=== PATIENT | male | born 1965 | race Caucasian/White ===

== ENCOUNTER 2017-04-29 14:15 | Emergency (ER) | payer MEDICAID ==
[~2017-04-29] VITALS: Ht 165.1 cm; Wt 74.0 kg
[~2017-04-29 14:15] MED LIST: INSULIN SUBCUT
[2017-04-29] MEDS ORDERED: ACETAMINOPHEN 325MG TABLET PO STA (19:16)
[2017-04-29] MEDS ORDERED: SODIUM CHLORIDE 0.9% 1000ML BAG (SEPSIS BOLUS) IV ONE (19:30)
[2017-04-29 19:38] LABS: BASOPHILS % 0.7 % (0.0-2.0); EOSINOPHILS % 1.2 % (0.0-5.0); HEMATOCRIT. 32.1 % (42.0-52.0); HEMOGLOBIN. 10.6 g/dL (14.0-18.0); LYMPHOCYTES % 20.1 % (20.0-50.0); MEAN CORPUSCULAR HEMOGLOBIN 26.2 pg (28.0-32.0); MEAN PLATELET VOLUME 7.1 fl (7.4-10.4); MONOCYTES % 9.2 % (2.0-8.0); NEUTROPHILS % 68.8 % (40.0-76.0); PLATELET 294 x1000/uL (130-400); RED BLOOD CELL COUNT 4.06 mill/uL (4.7-6.1)
[2017-04-29 19:42] LABS: CHLORIDE 109 mEq/L (98-107)
[2017-04-29 19:50] LABS: CARBON DIOXIDE 24 mEq/L (21-32)
[2017-04-29 20:49] LABS: CLARITY URINE CLEAR (CLEAR); COLOR URINE YELLOW (YELLOW); GLUCOSE URINE 1+ (NEGATIVE); KETONES URINE NEGATIVE (NEGATIVE); LEUKOCYTE ESTERASE URINE NEGATIVE (NEGATIVE); NITRITE URINE NEGATIVE (NEGATIVE); OCCULT BLOOD URINE 2+ (NEGATIVE); PH URINE 5.5 (4.5-8.0); PROTEIN URINE 4+ (NEGATIVE); SPECIFIC GRAVITY URINE 1.024 (1.005-1.030); UROBILINOGEN URINE 0.2 E.U./dL (0.2-1.0)
[2017-04-29 23:48] VITALS: BP 137/72
== END 2017-04-29 23:50 | disposition home or self-care (01) ==
LOC: ER 19:56
DX: J20.9 Acute bronchitis, unspecified (principal); N28.9 Disorder of kidney and ureter, unspecified; E11.9 Type 2 diabetes mellitus without complications; Z79.4 Long term (current) use of insulin
CPT/HCPCS: 36415; 71010; 80053; 81001; 82962; 83605; 85025; 87040; 87086; 87804; 93005; 96360; 99285; J7030; Z7610

== ENCOUNTER 2017-05-21 04:10 | Inpatient (IN) | payer MEDICAID ==
[~2017-05-21] VITALS: Ht 165.1 cm; Wt 74.4 kg
[2017-05-21] MEDS ORDERED: ACETAMINOPHEN 325MG TABLET PO STA (05:17)
[2017-05-21] MEDS ORDERED: ONDANSETRON HCL 4MG/2ML VIAL IV STA (05:17)
[2017-05-21] MEDS ORDERED: METHYLPREDNISOLONE SOD SUCC 125 MG/2 ML VIAL IV STA (05:20)
[2017-05-21] MEDS ORDERED: SODIUM CHLORIDE 0.9% 500 ML IV ONE (05:20)
[2017-05-21] MEDS ORDERED: IPRATROPIUM/ALBUTEROL 0.5-3(2.5)MG/3ML NEB HHN ONE (05:30)
[2017-05-21] MEDS ORDERED: PIPERACILLIN/TAZ 3.375G PREMIX 50 ML IV ONE (05:30)
[2017-05-21] MEDS ORDERED: VANCOMYCIN 1 G PREMIX 200 ML IV ONE (05:30)
[2017-05-21 06:04] LABS: BASOPHILS % 0.5 % (0.0-2.0); EOSINOPHILS % 1.3 % (0.0-5.0); HEMOGLOBIN. 9.7 g/dL (14.0-18.0); LYMPHOCYTES % 7.9 % (20.0-50.0); MEAN CORPUSCULAR HEMOGLOBIN 26.4 pg (28.0-32.0); MEAN CORPUSCULAR VOLUME 79.3 fL (80.0-94.0); MEAN PLATELET VOLUME 7.5 fl (7.4-10.4); MONOCYTES % 5.9 % (2.0-8.0); NEUTROPHILS % 84.4 % (40.0-76.0); PLATELET 325 x1000/uL (130-400); RED BLOOD CELL COUNT 3.66 mill/uL (4.7-6.1); RED CELL DISTRIBUTION WIDTH 13.4 % (11.6-14.6)
[2017-05-21 06:08] LABS: INR 1.1; PROTHROMBIN TIME 11.3 sec (9.4-11.6)
[2017-05-21 06:18] LABS: CARBON DIOXIDE 26 mEq/L (21-32); CHLORIDE 109 mEq/L (98-107); ETHANOL BLOOD < 10 mg/dL; TROPONIN I 0.06 ng/mL (0.00-0.04)
[2017-05-21] MEDS ORDERED: MAGNESIUM/ALUMINUM HYDROXIDE/SIMETHICONE 30ML UDC PO PRN (07:00)
[2017-05-21] MEDS ORDERED: DOCUSATE SODIUM 100MG CAPSULE PO PRN (07:00)
[2017-05-21] MEDS ORDERED: TRAMADOL 50MG TABLET PO PRN (07:00)
[2017-05-21] MEDS ORDERED: CLONIDINE 0.1MG TABLET PO PRN (07:00)
[2017-05-21] MEDS ORDERED: NA PHOS,M-B/NA PHOS,DI-BA ENEMA 118ML PR PRN (07:00)
[2017-05-21] MEDS ORDERED: DEXTROSE 50% WATER 50ML SYRINGE IV PRN (07:00)
[2017-05-21] MEDS ORDERED: IPRATROPIUM/ALBUTEROL 0.5-3(2.5)MG/3ML NEB INH PRN (07:00)
[2017-05-21] MEDS ORDERED: ENOXAPARIN 40MG/0.4ML SYR SUBCUT SCH (07:00)
[2017-05-21] MEDS: BLOOD SUGAR DIAGNOSTIC STRIP TEST SCH ×4 (09:00→21:43)
[2017-05-21] MEDS ORDERED: OSELTAMIVIR 75MG CAPSULE PO SCH (09:00)
[2017-05-21] MEDS ORDERED: ENOXAPARIN 30MG/0.3ML SYR SUBCUT SCH (09:47)
[2017-05-21] MEDS: FUROSEMIDE 40MG/4ML VIAL IVP SCH ×2 (09:53→21:03)
[2017-05-21] MEDS: ASPIRIN 325MG EC TABLET PO SCH (09:54)
[2017-05-21] MEDS: METOPROLOL TARTRATE 25MG TABLET PO SCH ×2 (09:55→21:03)
[2017-05-21] MEDS: FAMOTIDINE 20MG/2ML VIAL IV SCH (10:05)
[2017-05-21] MEDS: INSULIN LISPRO 100 UNITS/ML SUBCUT SCH ×4 (10:12→22:40)
[2017-05-21 10:19] VITALS: BP 124/58
[2017-05-21 10:30] VITALS: BP 124/58
[2017-05-21] MEDS: ACETAMINOPHEN 325MG TABLET PO PRN ×2 (10:35→21:04)
[2017-05-21 12:00] VITALS: BP 125/65
[2017-05-21] MEDS: CEFTRIAXONE 1 G PREMIX 50 ML IV SCH (12:00)
[2017-05-21] MEDS: OSELTAMIVIR PHOSPHATE 6 MG/1 ML PO SCH ×2 (12:00→21:03)
[2017-05-21] MEDS: AZITHROMYCIN 500 MG in DEXT 5% WATER 250 ML IV SCH (12:57)
[2017-05-21] MEDS: GUAIFENESIN 200MG/10ML SUGAR FREE UDC PO PRN (12:57)
[2017-05-21 14:54] LABS: CLARITY URINE CLEAR (CLEAR); COLOR URINE YELLOW (YELLOW); GLUCOSE URINE TRACE (NEGATIVE); KETONES URINE NEGATIVE (NEGATIVE); LEUKOCYTE ESTERASE URINE NEGATIVE (NEGATIVE); NITRITE URINE NEGATIVE (NEGATIVE); OCCULT BLOOD URINE 2+ (NEGATIVE); PH URINE 5.5 (4.5-8.0); PROTEIN URINE 4+ (NEGATIVE); SPECIFIC GRAVITY URINE 1.018 (1.005-1.030); UROBILINOGEN URINE 0.2 E.U./dL (0.2-1.0)
[2017-05-21 15:34] LABS: *AMPHETAMINES SCREEN URINE NEGATIVE (NEGATIVE); *BARBITURATES SCREEN URINE NEGATIVE (NEGATIVE); *BENZODIAZEPINES SCREEN URINE NEGATIVE (NEGATIVE); *COCAINE SCREEN URINE NEGATIVE (NEGATIVE); CANNABINOID URINE SCREEN NEGATIVE (NEGATIVE); METHADONE URINE SCREEN NEGATIVE (NEGATIVE); OPIATES URINE SCREEN NEGATIVE (NEGATIVE); PHENCYCLIDINE URINE SCREEN NEGATIVE (NEGATIVE)
[2017-05-21 16:00] VITALS: BP 132/78
[2017-05-21 16:49] LABS: CREATINE KINASE MB FRACTION 3.2 ng/mL (0.5-3.6)
[2017-05-21 16:52] LABS: TROPONIN I 0.42 ng/mL (0.00-0.04)
[2017-05-21 20:30] VITALS: BP 132/74
[2017-05-21] MEDS ORDERED: ZOLPIDEM TARTRATE 5MG TABLET PO PRN (21:00)
[2017-05-21 23:11] LABS: CREATINE KINASE MB FRACTION 3.7 ng/mL (0.5-3.6)
[2017-05-21 23:43] LABS: TROPONIN I 0.7 ng/mL (0.00-0.04)
[2017-05-21 23:50] VITALS: BP 115/59
[2017-05-22] MEDS: ACETAMINOPHEN 325MG TABLET PO PRN ×3 (01:24→16:11)
[2017-05-22 04:30] VITALS: BP 126/66
[2017-05-22] MEDS: INSULIN LISPRO 100 UNITS/ML SUBCUT SCH ×4 (06:32→22:07)
[2017-05-22] MEDS: BLOOD SUGAR DIAGNOSTIC STRIP TEST SCH ×4 (06:32→21:56)
[2017-05-22] MEDS: ONDANSETRON HCL 4MG/2ML VIAL IV PRN ×2 (06:57→16:09)
[2017-05-22] MEDS: ASPIRIN 325MG EC TABLET PO SCH (08:39)
[2017-05-22] MEDS: ENOXAPARIN 80MG/0.8ML SYR SUBCUT SCH (08:40)
[2017-05-22] MEDS: GUAIFENESIN 200MG/10ML SUGAR FREE UDC PO PRN (08:40)
[2017-05-22 08:45] LABS: HEMATOCRIT. 27.1 % (42.0-52.0); MEAN CORPUSCULAR HEMOGLOBIN 26.2 pg (28.0-32.0); MEAN CORPUSCULAR VOLUME 78.9 fL (80.0-94.0); MEAN PLATELET VOLUME 7.5 fl (7.4-10.4); PLATELET 280 x1000/uL (130-400); RED BLOOD CELL COUNT 3.44 mill/uL (4.7-6.1); RED CELL DISTRIBUTION WIDTH 13.6 % (11.6-14.6)
[2017-05-22] MEDS: METOPROLOL TARTRATE 25MG TABLET PO SCH ×3 (08:46→21:52)
[2017-05-22] MEDS: FAMOTIDINE 20MG/2ML VIAL IV SCH (08:47)
[2017-05-22] MEDS: FUROSEMIDE 40MG/4ML VIAL IVP SCH ×2 (08:47→21:50)
[2017-05-22 09:13] LABS: CARBON DIOXIDE 24 mEq/L (21-32); CHLORIDE 102 mEq/L (98-107)
[2017-05-22] MEDS: CEFTRIAXONE 1 G PREMIX 50 ML IV SCH (10:27)
[2017-05-22] MEDS: OSELTAMIVIR PHOSPHATE 6 MG/1 ML PO SCH ×2 (10:28→21:52)
[2017-05-22] MEDS: AZITHROMYCIN 500 MG in DEXT 5% WATER 250 ML IV SCH (11:41)
[2017-05-22 13:43] LABS: PLATELET ESTIMATE NORMAL
[2017-05-22 16:29] VITALS: BP 154/75
[2017-05-22] MEDS ORDERED: METOCLOPRAMIDE HCL 10MG/2ML VIAL IV PRN (17:15)
[2017-05-22 19:30] VITALS: BP 126/71
[2017-05-22 20:00] VITALS: BP 117/77
[2017-05-23] VITALS: BP 129/70
[2017-05-23] MEDS: ACETAMINOPHEN 325MG TABLET PO PRN ×4 (00:12→18:38)
[2017-05-23 04:15] VITALS: BP 139/88
[2017-05-23] MEDS: BLOOD SUGAR DIAGNOSTIC STRIP TEST SCH ×4 (06:44→21:10)
[2017-05-23 08:00] VITALS: BP 136/86
[2017-05-23] MEDS: INSULIN LISPRO 100 UNITS/ML SUBCUT SCH ×4 (08:31→21:14)
[2017-05-23] MEDS: ASPIRIN 325MG EC TABLET PO SCH (08:32)
[2017-05-23] MEDS: FUROSEMIDE 40MG/4ML VIAL IVP SCH (08:32)
[2017-05-23] MEDS: ENOXAPARIN 80MG/0.8ML SYR SUBCUT SCH (08:33)
[2017-05-23] MEDS: METOPROLOL TARTRATE 25MG TABLET PO SCH ×2 (08:33→21:10)
[2017-05-23] MEDS: OSELTAMIVIR PHOSPHATE 6 MG/1 ML PO SCH ×2 (09:00→21:09)
[2017-05-23] MEDS: FAMOTIDINE 20MG/2ML VIAL IV SCH (09:09)
[2017-05-23 12:14] VITALS: BP_SYST 105; BP_SYST 160; BP_DIAS 65; BP_DIAS 93
[2017-05-23] MEDS: CEFTRIAXONE 1 G PREMIX 50 ML IV SCH (12:17)
[2017-05-23 12:43] LABS: BASOPHILS % 0.7 % (0.0-2.0); HEMATOCRIT. 26.5 % (42.0-52.0); HEMOGLOBIN. 8.8 g/dL (14.0-18.0); LYMPHOCYTES % 12.5 % (20.0-50.0); MEAN CORPUSCULAR HEMOGLOBIN 26.6 pg (28.0-32.0); MEAN CORPUSCULAR VOLUME 79.9 fL (80.0-94.0); MEAN PLATELET VOLUME 8.2 fl (7.4-10.4); MONOCYTES % 4.1 % (2.0-8.0); NEUTROPHILS % 82.7 % (40.0-76.0); PLATELET 243 x1000/uL (130-400); RED BLOOD CELL COUNT 3.31 mill/uL (4.7-6.1); RED CELL DISTRIBUTION WIDTH 13.8 % (11.6-14.6)
[2017-05-23] MEDS: AZITHROMYCIN 500 MG in DEXT 5% WATER 250 ML IV SCH (13:22)
[2017-05-23 15:53] VITALS: BP 110/62
[2017-05-23] MEDS: SODIUM CHLORIDE 0.9% 1,000 ML IV SCH (18:15)
[2017-05-23 20:00] VITALS: BP 112/62
[2017-05-23] MEDS ORDERED: METOPROLOL TARTRATE 25MG TABLET PO SCH (21:00)
[2017-05-24] VITALS: BP 111/68
[2017-05-24 04:00] VITALS: BP 130/67
[2017-05-24] MEDS: SODIUM CHLORIDE 0.9% 1,000 ML IV SCH ×3 (04:07→22:08)
[2017-05-24 06:33] LABS: BASOPHILS % 0.5 % (0.0-2.0); EOSINOPHILS % 0.2 % (0.0-5.0); HEMATOCRIT. 27.4 % (42.0-52.0); HEMOGLOBIN. 9.2 g/dL (14.0-18.0); LYMPHOCYTES % 22.5 % (20.0-50.0); MEAN CORPUSCULAR HEMOGLOBIN 26.4 pg (28.0-32.0); MEAN CORPUSCULAR VOLUME 78.7 fL (80.0-94.0); MONOCYTES % 4.6 % (2.0-8.0); NEUTROPHILS % 72.2 % (40.0-76.0); PLATELET 255 x1000/uL (130-400); RED BLOOD CELL COUNT 3.48 mill/uL (4.7-6.1); RED CELL DISTRIBUTION WIDTH 13.9 % (11.6-14.6)
[2017-05-24] MEDS: INSULIN LISPRO 100 UNITS/ML SUBCUT SCH ×5 (06:41→22:08)
[2017-05-24] MEDS: BLOOD SUGAR DIAGNOSTIC STRIP TEST SCH ×4 (06:41→21:00)
[2017-05-24 08:00] VITALS: BP 136/71
[2017-05-24] MEDS: METOPROLOL TARTRATE 25MG TABLET PO SCH ×2 (10:09→22:08)
[2017-05-24] MEDS: ASPIRIN 325MG EC TABLET PO SCH (10:09)
[2017-05-24] MEDS: CEFTRIAXONE 1 G PREMIX 50 ML IV SCH (10:10)
[2017-05-24] MEDS: FAMOTIDINE 20MG/2ML VIAL IV SCH (10:10)
[2017-05-24] MEDS: OSELTAMIVIR PHOSPHATE 6 MG/1 ML PO SCH (10:11)
[2017-05-24] MEDS: ENOXAPARIN 30MG/0.3ML SYR SUBCUT SCH (10:12)
[2017-05-24 12:00] VITALS: BP 126/71
[2017-05-24] MEDS: AZITHROMYCIN 500 MG in DEXT 5% WATER 250 ML IV SCH (12:20)
[2017-05-24 18:14] VITALS: BP 119/62
[2017-05-24 20:00] VITALS: BP 147/80
[2017-05-24 22:42] LABS: CLARITY URINE CLEAR (CLEAR); COLOR URINE YELLOW (YELLOW); GLUCOSE URINE TRACE (NEGATIVE); KETONES URINE NEGATIVE (NEGATIVE); LEUKOCYTE ESTERASE URINE NEGATIVE (NEGATIVE); NITRITE URINE NEGATIVE (NEGATIVE); OCCULT BLOOD URINE 2+ (NEGATIVE); PH URINE 5.5 (4.5-8.0); PROTEIN URINE 3+ (NEGATIVE); SPECIFIC GRAVITY URINE 1.015 (1.005-1.030); UROBILINOGEN URINE 0.2 E.U./dL (0.2-1.0)
[2017-05-25] VITALS: BP 130/82
[2017-05-25 04:00] VITALS: BP 143/80
[2017-05-25] MEDS: BLOOD SUGAR DIAGNOSTIC STRIP TEST SCH ×2 (06:58→12:20)
[2017-05-25 07:15] LABS: BASOPHILS % 0.4 % (0.0-2.0); EOSINOPHILS % 0.5 % (0.0-5.0); HEMATOCRIT. 26.9 % (42.0-52.0); LYMPHOCYTES % 21.8 % (20.0-50.0); MEAN CORPUSCULAR HEMOGLOBIN 26.4 pg (28.0-32.0); MEAN CORPUSCULAR VOLUME 78.9 fL (80.0-94.0); MEAN PLATELET VOLUME 8.1 fl (7.4-10.4); MONOCYTES % 5.4 % (2.0-8.0); NEUTROPHILS % 71.9 % (40.0-76.0); PLATELET 256 x1000/uL (130-400); RED BLOOD CELL COUNT 3.41 mill/uL (4.7-6.1); RED CELL DISTRIBUTION WIDTH 13.6 % (11.6-14.6)
[2017-05-25] MEDS ORDERED: REGADENOSON 0.4 MG/5 ML IV ONE ×2 (07:45→11:22)
[2017-05-25 07:51] LABS: CARBON DIOXIDE 25 mEq/L (21-32); CHLORIDE 104 mEq/L (98-107); PHOSPHORUS 3.3 mg/dL (2.5-4.9)
[2017-05-25 07:59] LABS: CREATINE KINASE 1119 IU/L (39-308)
[2017-05-25 08:03] VITALS: BP 170/90
[2017-05-25] MEDS: ENOXAPARIN 30MG/0.3ML SYR SUBCUT SCH (09:00)
[2017-05-25] MEDS: ASPIRIN 325MG EC TABLET PO SCH (09:00)
[2017-05-25] MEDS: METOPROLOL TARTRATE 25MG TABLET PO SCH (09:00)
[2017-05-25] MEDS: FAMOTIDINE 20MG/2ML VIAL IV SCH (09:00)
[2017-05-25 09:12] LABS: A/G RATIO 0.8 (0.7-1.7); ALBUMIN 2.1 g/dL (2.9-4.4); ALPHA-1-GLOBULIN 0.3 g/dL (0.0-0.4); ALPHA-2-GLOBULIN 1.1 g/dL (0.4-1.0); BETA GLOBULIN 0.7 g/dL (0.7-1.3); GAMMA GLOBULINS 0.6 g/dL (0.4-1.8); GLOBULIN TOTAL 2.7 g/dL (2.2-3.9); M-SPIKE Not Observed g/dL (Not Observed); TOTAL PROTEIN SERUM 4.8 g/dL (6.0-8.5)
[2017-05-25] MEDS: CEFTRIAXONE 1 G PREMIX 50 ML IV SCH (11:00)
[2017-05-25] MEDS: AZITHROMYCIN 500 MG in DEXT 5% WATER 250 ML IV SCH (11:30)
[2017-05-25 12:00] VITALS: BP 146/70
[2017-05-25] MEDS: INSULIN LISPRO 100 UNITS/ML SUBCUT SCH (12:50)
[2017-05-25 15:45] VITALS: BP 159/77
[2017-05-25 16:08] VITALS: BP 146/70
[2017-05-26 09:06] LABS: COMPLEMENT C3 75 mg/dL (82-167)
[2017-05-27 06:13] LABS: ALBUMIN URINE 46.1 % (.); ALPHA-1-GLOBULIN URINE 9.8 % (.); ALPHA-2-GLOBULIN URINE 16.1 % (.); BETA GLOBULIN URINE 18.9 % (.); GAMMA GLOBULIN URINE 9.1 % (.); TOTAL PROTEIN RANDOM URINE 288.7 mg/dL (Not Estab.)
== END 2017-05-25 17:05 | disposition home or self-care (01) | DRG 720 ==
LOC: ER 04:10 → 6WST 06:37 → EDBEDREQ 06:45 → EDBEDREQSVC 06:50 → ENRESERV 07:25
PROVIDERS: ADMIT Internal Medicine; ATTEND Internal Medicine
DX: A41.9 Sepsis, unspecified organism (principal); J96.91 Respiratory failure, unspecified with hypoxia; N17.0 Acute kidney failure with tubular necrosis; I11.0 Hypertensive heart disease with heart failure; E43 Unspecified severe protein-calorie malnutrition; I50.9 Heart failure, unspecified; I13.0 Hypertensive heart and chronic kidney disease with heart failure and stage 1 through stage 4 chronic kidney disease, or unspecified chronic kidney disease; R65.20 Severe sepsis without septic shock; N18.3 Chronic kidney disease, stage 3 (moderate); M62.82 Rhabdomyolysis; E44.0 Moderate protein-calorie malnutrition; E11.22 Type 2 diabetes mellitus with diabetic chronic kidney disease; J10.1 Influenza due to other identified influenza virus with other respiratory manifestations; D64.9 Anemia, unspecified; E87.1 Hypo-osmolality and hyponatremia; I44.7 Left bundle-branch block, unspecified; K30 Functional dyspepsia; R78.89 Finding of other specified substances, not normally found in blood; K59.00 Constipation, unspecified; G47.00 Insomnia, unspecified; Z79.4 Long term (current) use of insulin; Z82.49 Family history of ischemic heart disease and other diseases of the circulatory system; Z68.27 Body mass index [BMI] 27.0-27.9, adult; Z83.3 Family history of diabetes mellitus; Z87.891 Personal history of nicotine dependence
CPT/HCPCS: 36415; 71010; 71250; 76770; 78452; 80048; 80053; 80061; 80305; 81001; 82550; 82553; 82570; 82962; 83036; 83605; 83735; 83880; 84100; 84155; 84156; 84165; 84166; 84443; 84484; 85025; 85610; 86160; 87040; 87086; 87804; 93005; 93017; 93306; 93970; 94640; 96365; 96367; 96375; 99285; A9500; C1893; G0482; J0456; J0696; J1650; J1815; J1940; J2405; J2543; J2765; J2785; J2930; J3370; J3490; J7030; J7040; J7050; J7060; J7620

== ENCOUNTER 2017-12-09 11:59 | Emergency (ER) | payer MEDICAID ==
[~2017-12-09] VITALS: Ht 165.1 cm; Wt 73.0 kg
[2017-12-09 14:02] LABS: BASOPHILS % 1.3 % (0.0-2.0); EOSINOPHILS % 4.4 % (0.0-5.0); HEMATOCRIT. 36.2 % (42.0-52.0); LYMPHOCYTES % 24.1 % (20.0-50.0); MEAN CORPUSCULAR HEMOGLOBIN 27.9 pg (28.0-32.0); MEAN CORPUSCULAR VOLUME 83.7 fL (80.0-94.0); MEAN PLATELET VOLUME 6.9 fl (7.4-10.4); MONOCYTES % 6.6 % (2.0-8.0); NEUTROPHILS % 63.6 % (40.0-76.0); PLATELET 379 x1000/uL (130-400); RED BLOOD CELL COUNT 4.32 mill/uL (4.7-6.1); RED CELL DISTRIBUTION WIDTH 15.9 % (11.6-14.6)
[2017-12-09 14:09] LABS: CHLORIDE 104 mEq/L (98-107)
[2017-12-09 14:16] LABS: D-DIMER 0.66 mg/L FEU (<0.50); PARTIAL THROMBOPLASTIN TIME 25.2 sec (23.4-31.0); PROTHROMBIN TIME 10.3 sec (9.4-11.6)
[2017-12-09 15:57] VITALS: BP 186/92
== END 2017-12-09 16:50 | disposition home or self-care (01) ==
LOC: ER 11:59
DX: R00.2 Palpitations (principal); I13.2 Hypertensive heart and chronic kidney disease with heart failure and with stage 5 chronic kidney disease, or end stage renal disease; E11.22 Type 2 diabetes mellitus with diabetic chronic kidney disease; I50.9 Heart failure, unspecified; N18.6 End stage renal disease; Z99.2 Dependence on renal dialysis; Z79.4 Long term (current) use of insulin
CPT/HCPCS: 36415; 71045; 80053; 83690; 83880; 84484; 85025; 85379; 85610; 85730; 93005; 99285; Z7610

== ENCOUNTER 2018-02-15 20:35 | Emergency (ER) | payer MEDICAID ==
[~2018-02-15] VITALS: Ht 165.1 cm; Wt 72.0 kg
[~2018-02-15 20:35] MED LIST changes: +AMLO10TA80 PO; +ASPI-1159 PO; +ATOR20TA65 PO; +CLOP75TA33 PO; +INSLIS SUBCUT; +INSU100I24 SQ; -INSULIN SUBCUT; +LISI-604 PO
[2018-02-16] MEDS ORDERED: ONDANSETRON HCL 4MG/2ML VIAL IV STA (00:43)
[2018-02-16] MEDS ORDERED: ACETAMINOPHEN 325MG TABLET PO STA (00:43)
[2018-02-16] MEDS ORDERED: SODIUM CHLORIDE 0.9% 500 ML IV ONE (01:15)
[2018-02-16 01:19] LABS: BASOPHILS % 0.7 % (0.0-2.0); EOSINOPHILS % 2.5 % (0.0-5.0); HEMATOCRIT. 35.4 % (42.0-52.0); HEMOGLOBIN. 12.1 g/dL (14.0-18.0); MEAN CORPUSCULAR VOLUME 82.1 fL (80.0-94.0); MEAN PLATELET VOLUME 6.9 fl (7.4-10.4); NEUTROPHILS % 55.8 % (40.0-76.0); PLATELET 279 x1000/uL (130-400); RED BLOOD CELL COUNT 4.31 mill/uL (4.7-6.1); RED CELL DISTRIBUTION WIDTH 13.7 % (11.6-14.6)
[2018-02-16 01:27] LABS: PROTHROMBIN TIME 10.8 sec (9.4-11.6)
[2018-02-16 01:29] LABS: CHLORIDE 100 mEq/L (98-107)
[2018-02-16 06:00] VITALS: BP 140/68
== END 2018-02-16 06:38 | disposition home or self-care (01) ==
LOC: ER 02-16 00:59
DX: R51 Headache (principal); I12.0 Hypertensive chronic kidney disease with stage 5 chronic kidney disease or end stage renal disease; E11.22 Type 2 diabetes mellitus with diabetic chronic kidney disease; N18.6 End stage renal disease; I51.7 Cardiomegaly; Z99.2 Dependence on renal dialysis; Z79.4 Long term (current) use of insulin; Z79.82 Long term (current) use of aspirin
CPT/HCPCS: 36415; 70450; 71045; 80053; 83605; 85025; 85610; 87040; 96361; 96374; 99285; J2405; J7040; Z7610

== ENCOUNTER 2018-07-14 07:38 | Inpatient (IN) | payer MEDICAID ==
[~2018-07-14] VITALS: Ht 165.1 cm; Wt 75.7 kg
[2018-07-14] MEDS ORDERED: ONDANSETRON HCL 4MG/2ML INJ IV STA ×3 (08:24→12:54)
[2018-07-14] MEDS ORDERED: SODIUM CHLORIDE 0.9% 1,000 ML IV ONE (08:24)
[2018-07-14 08:57] LABS: HEMOGLOBIN. 10.2 g/dL (14.0-18.0); MEAN CORPUSCULAR HEMOGLOBIN 28.5 pg (28.0-32.0); MEAN CORPUSCULAR VOLUME 86.6 fL (80.0-94.0); MEAN PLATELET VOLUME 6.8 fl (7.4-10.4); PLATELET 325 x1000/uL (130-400); RED BLOOD CELL COUNT 3.58 mill/uL (4.7-6.1); RED CELL DISTRIBUTION WIDTH 13.8 % (11.6-14.6)
[2018-07-14 09:02] LABS: CHLORIDE 104 mEq/L (98-107)
[2018-07-14 09:05] LABS: INR 1.1; PROTHROMBIN TIME 10.6 sec (9.1-11.1)
[2018-07-14 09:10] LABS: ETHANOL BLOOD < 10 mg/dL
[2018-07-14 09:23] LABS: PLATELET ESTIMATE NORMAL
[2018-07-14] MEDS ORDERED: LABETALOL HCL 20MG/4ML CARPUJECT IV NR (09:30)
[2018-07-14] MEDS ORDERED: PANTOPRAZOLE 80 MG in SODIUM CHLORIDE 0.9% 80 ML IV ONE (12:15)
[2018-07-14] MEDS ORDERED: PANTOPRAZOLE SODIUM 40 MG/VIAL IV ONE (12:58)
[2018-07-14] MEDS ORDERED: PANTOPRAZOLE 80 MG in SODIUM CHLORIDE 0.9% 100 ML IV ONE (12:58)
[2018-07-14] MEDS ORDERED: CEFTRIAXONE 1 G PREMIX 50 ML IV ONE (13:00)
[2018-07-14] MEDS ORDERED: ACETAMINOPHEN 325MG TABLET PO PRN (13:45)
[2018-07-14 13:47] LABS: INR 1.1; PARTIAL THROMBOPLASTIN TIME 26.4 sec (23.4-31.0); PROTHROMBIN TIME 11.4 sec (9.1-11.1)
[2018-07-14] MEDS ORDERED: LEVOFLOXACIN 250MG PREMIX 50 ML IV SCH (14:00)
[2018-07-14] MEDS ORDERED: ONDANSETRON HCL 4MG/2ML INJ IV PRN ×2 (14:00)
[2018-07-14] MEDS ORDERED: IPRATROPIUM/ALBUTEROL 0.5-3(2.5)MG/3ML NEB HHN PRN (14:00)
[2018-07-14] MEDS ORDERED: DEXTROSE 50% WATER 50ML SYRINGE IV PRN (14:00)
[2018-07-14] MEDS ORDERED: CLONIDINE 0.1MG TABLET PO PRN (14:00)
[2018-07-14 16:51] LABS: AMYLASE 86 IU/L (25-115)
[2018-07-14 16:54] LABS: TOTAL IRON BINDING CAPACITY 265 ug/dL (250-450)
[2018-07-14 18:36] LABS: HEMATOCRIT 25.8 % (42.0-52.0); HEMOGLOBIN 8.5 g/dL (14.0-18.0)
[2018-07-14] MEDS: INSULIN LISPRO 100 UNITS/ML SUBCUT SCH ×2 (18:54→21:00)
[2018-07-14] MEDS: BLOOD SUGAR DIAGNOSTIC STRIP TEST SCH (21:00)
[2018-07-14 23:07] VITALS: BP 128/56
[2018-07-14 23:13] VITALS: BP 128/56
[2018-07-14] MEDS: NIFEDIPINE XL 60MG TAB PO SCH (23:18)
[2018-07-15] VITALS (10 sets, daily range): BP systolic 107–132; BP diastolic 41–75
[2018-07-15] MEDS: CEFEPIME 1,000 MG in DEXTROSE 5% WATER 50 ML IV SCH ×2 (03:56→13:20)
[2018-07-15] MEDS: METRONIDAZOLE 500 MG PREMIX 100 ML IV SCH ×3 (04:36→22:26)
[2018-07-15 07:10] LABS: BASOPHILS % 0.4 % (0.0-2.0); EOSINOPHILS % 0.1 % (0.0-5.0); HEMOGLOBIN. 9.2 g/dL (14.0-18.0); LYMPHOCYTES % 10.9 % (20.0-50.0); MEAN CORPUSCULAR HEMOGLOBIN 29.2 pg (28.0-32.0); MEAN CORPUSCULAR VOLUME 85.7 fL (80.0-94.0); MEAN PLATELET VOLUME 7.4 fl (7.4-10.4); MONOCYTES % 6.1 % (2.0-8.0); NEUTROPHILS % 82.5 % (40.0-76.0); PLATELET 229 x1000/uL (130-400); RED BLOOD CELL COUNT 3.15 mill/uL (4.7-6.1)
[2018-07-15] MEDS: BLOOD SUGAR DIAGNOSTIC STRIP TEST SCH ×4 (07:27→21:32)
[2018-07-15] MEDS: INSULIN LISPRO 100 UNITS/ML SUBCUT SCH ×4 (07:28→21:00)
[2018-07-15 07:37] LABS: INR 1.2; PARTIAL THROMBOPLASTIN TIME 31.2 sec (23.4-31.0); PROTHROMBIN TIME 11.7 sec (9.1-11.1)
[2018-07-15] MEDS: IPRATROPIUM/ALBUTEROL 0.5-3(2.5)MG/3ML NEB HHN SCH ×4 (08:30→21:09)
[2018-07-15] MEDS: PANTOPRAZOLE SODIUM 40 MG/VIAL IV SCH ×2 (09:59→18:19)
[2018-07-15] MEDS: NIFEDIPINE XL 60MG TAB PO SCH (09:59)
[2018-07-15 17:03] LABS: HEMATOCRIT 26.5 % (42.0-52.0)
[2018-07-15 23:53] LABS: HEMATOCRIT 24.9 % (42.0-52.0); HEMOGLOBIN 8.5 g/dL (14.0-18.0)
[2018-07-16] VITALS: BP 121/70
[2018-07-16] MEDS: IPRATROPIUM/ALBUTEROL 0.5-3(2.5)MG/3ML NEB HHN SCH ×3 (01:35→15:20)
[2018-07-16 04:00] VITALS: BP 123/72
[2018-07-16] MEDS: BLOOD SUGAR DIAGNOSTIC STRIP TEST SCH ×2 (06:41→12:40)
[2018-07-16 06:58] LABS: BASOPHILS % 0.5 % (0.0-2.0); EOSINOPHILS % 1.9 % (0.0-5.0); HEMATOCRIT. 27.2 % (42.0-52.0); HEMOGLOBIN. 9.1 g/dL (14.0-18.0); LYMPHOCYTES % 10.5 % (20.0-50.0); MEAN CORPUSCULAR HEMOGLOBIN 28.9 pg (28.0-32.0); MEAN PLATELET VOLUME 7.2 fl (7.4-10.4); MONOCYTES % 7.8 % (2.0-8.0); NEUTROPHILS % 79.3 % (40.0-76.0); PLATELET 219 x1000/uL (130-400); RED BLOOD CELL COUNT 3.16 mill/uL (4.7-6.1)
[2018-07-16 08:00] VITALS: BP 109/54
[2018-07-16] MEDS: NIFEDIPINE XL 60MG TAB PO SCH (08:26)
[2018-07-16] MEDS: METRONIDAZOLE 500 MG PREMIX 100 ML IV SCH (08:59)
[2018-07-16] MEDS: PANTOPRAZOLE SODIUM 40 MG/VIAL IV SCH (09:01)
[2018-07-16] MEDS: INSULIN LISPRO 100 UNITS/ML SUBCUT SCH ×2 (09:19→13:16)
[2018-07-16] MEDS ORDERED: CEFEPIME 1,000 MG in DEXTROSE 5% WATER 50 ML IV SCH (11:00)
[2018-07-16 12:00] VITALS: BP 107/59
[2018-07-16 22:13] LABS: FOLIC ACID (FOLATE) SERUM 11.8 ng/mL (>5.38)
[2018-07-18 17:06] LABS: BARBITURATE SCREEN Negative ug/mL (Cutoff:0.1); BENZODIAZEPINE SCREEN Negative ng/mL (Cutoff:20); OPIATES SCREEN Negative ng/mL (Cutoff:5); PHENCYCLIDINE SCREEN Negative ng/mL (Cutoff:8)
== END 2018-07-16 16:43 | disposition home or self-care (01) | DRG 720 ==
LOC: ER 07:38 → EDBEDREQ 12:23 → 7WST 13:38 → EDBEDREQ 13:41 → ENRESERV 21:57
PROVIDERS: ADMIT Internal Medicine; ATTEND Internal Medicine
PROC: 30233N1 Transfusion of Nonautologous Red Blood Cells into Peripheral Vein, Percutaneous Approach (ICD-10-PCS; principal; 2018-07-15)
PROC: 5A1D70Z Performance of Urinary Filtration, Intermittent, Less than 6 Hours Per Day (ICD-10-PCS; 2018-07-15)
DX: A41.9 Sepsis, unspecified organism (principal); J69.0 Pneumonitis due to inhalation of food and vomit; J96.00 Acute respiratory failure, unspecified whether with hypoxia or hypercapnia; E43 Unspecified severe protein-calorie malnutrition; I13.2 Hypertensive heart and chronic kidney disease with heart failure and with stage 5 chronic kidney disease, or end stage renal disease; K27.4 Chronic or unspecified peptic ulcer, site unspecified, with hemorrhage; K29.71 Gastritis, unspecified, with bleeding; E11.22 Type 2 diabetes mellitus with diabetic chronic kidney disease; I50.9 Heart failure, unspecified; D63.1 Anemia in chronic kidney disease; R74.0 Nonspecific elevation of levels of transaminase and lactic acid dehydrogenase [LDH]; E78.00 Pure hypercholesterolemia, unspecified; K52.9 Noninfective gastroenteritis and colitis, unspecified; E78.5 Hyperlipidemia, unspecified; E87.5 Hyperkalemia; I25.10 Atherosclerotic heart disease of native coronary artery without angina pectoris; N18.6 End stage renal disease; Z95.5 Presence of coronary angioplasty implant and graft; Z97.4 Presence of external hearing-aid; Z99.2 Dependence on renal dialysis; Z79.899 Other long term (current) drug therapy; Z79.82 Long term (current) use of aspirin; Z87.891 Personal history of nicotine dependence; Z80.0 Family history of malignant neoplasm of digestive organs; Z68.27 Body mass index [BMI] 27.0-27.9, adult
CPT/HCPCS: 36415; 71045; 74018; 74176; 76700; 80048; 80051; 80076; 80307; 82140; 82150; 82607; 82728; 82746; 82962; 83036; 83540; 83550; 85014; 85018; 86850; 86900; 86920; 93005; 94640; 96365; 96366; 96368; 96375; 96376; 99291; C9113; G0482; J0692; J0696; J1815; J2405; J3490; J7030; J7040; J7050; J7060; J7620; P9016

== ENCOUNTER 2018-09-18 22:05 | Emergency (ER) | payer MEDICARE, MEDICAID ==
[~2018-09-18] VITALS: Ht 165.1 cm; Wt 73.0 kg
[~2018-09-18 22:05] MED LIST changes: -ASPI-1159 PO; -CLOP75TA33 PO
[2018-09-18 23:01] VITALS: BP 196/67
== END 2018-09-19 00:58 | disposition left against medical advice (07) ==
LOC: ER 22:05
DX: R10.9 Unspecified abdominal pain (principal); Z53.21 Procedure and treatment not carried out due to patient leaving prior to being seen by health care provider
CPT/HCPCS: 82962

== ENCOUNTER 2018-09-20 06:10 | Emergency (ER) | payer MEDICAID ==
[~2018-09-20] VITALS: Ht 165.1 cm; Wt 73.0 kg
[2018-09-20] MEDS ORDERED: DIPHENHYDRAMINE 50MG/ML VIAL IV ONE (07:30)
[2018-09-20] MEDS ORDERED: PROCHLORPERAZINE 10MG/2ML VIAL IV ONE (07:30)
[2018-09-20 07:40] LABS: BASOPHILS % 0.9 % (0.0-2.0); EOSINOPHILS % 2.5 % (0.0-5.0); HEMATOCRIT. 38.7 % (42.0-52.0); HEMOGLOBIN. 12.4 g/dL (14.0-18.0); LYMPHOCYTES % 10.8 % (20.0-50.0); MEAN CORPUSCULAR HEMOGLOBIN 27.3 pg (28.0-32.0); MEAN CORPUSCULAR VOLUME 85.2 fL (80.0-94.0); MEAN PLATELET VOLUME 7.6 fl (7.4-10.4); MONOCYTES % 5.7 % (2.0-8.0); NEUTROPHILS % 80.1 % (40.0-76.0); PLATELET 256 x1000/uL (130-400); RED BLOOD CELL COUNT 4.54 mill/uL (4.7-6.1); RED CELL DISTRIBUTION WIDTH 15.4 % (11.6-14.6)
[2018-09-20 07:44] LABS: CHLORIDE 103 mEq/L (98-107)
[2018-09-20 10:30] VITALS: BP 193/90
[2018-09-20 12:17] LABS: CLARITY URINE CLEAR (CLEAR); COLOR URINE YELLOW (YELLOW); KETONES URINE TRACE (NEGATIVE); LEUKOCYTE ESTERASE URINE NEGATIVE (NEGATIVE); NITRITE URINE NEGATIVE (NEGATIVE); OCCULT BLOOD URINE 3+ (NEGATIVE); PH URINE 6.5 (4.5-8.0); PROTEIN URINE 4+ (NEGATIVE); UROBILINOGEN URINE 0.2 E.U./dL (0.2-1.0)
[2018-09-20 12:26] LABS: *AMPHETAMINES SCREEN URINE NEGATIVE (NEGATIVE); *BARBITURATES SCREEN URINE NEGATIVE (NEGATIVE); *BENZODIAZEPINES SCREEN URINE NEGATIVE (NEGATIVE); *COCAINE SCREEN URINE NEGATIVE (NEGATIVE)
[2018-09-20 12:27] LABS: CANNABINOID URINE SCREEN NEGATIVE (NEGATIVE); METHADONE URINE SCREEN NEGATIVE (NEGATIVE); OPIATES URINE SCREEN NEGATIVE (NEGATIVE); PHENCYCLIDINE URINE SCREEN NEGATIVE (NEGATIVE)
== END 2018-09-20 12:41 | disposition home or self-care (01) ==
LOC: ER 06:10
DX: R51 Headache (principal); R11.2 Nausea with vomiting, unspecified; N63.0 Unspecified lump in unspecified breast; I13.2 Hypertensive heart and chronic kidney disease with heart failure and with stage 5 chronic kidney disease, or end stage renal disease; E11.22 Type 2 diabetes mellitus with diabetic chronic kidney disease; N18.6 End stage renal disease; I50.9 Heart failure, unspecified; E78.00 Pure hypercholesterolemia, unspecified; I25.10 Atherosclerotic heart disease of native coronary artery without angina pectoris; Z79.4 Long term (current) use of insulin; Z99.2 Dependence on renal dialysis; Z95.5 Presence of coronary angioplasty implant and graft
CPT/HCPCS: 36415; 80053; 80305; 81003; 85025; 96374; 96375; 99283; J0780; J1200; Z7610

== ENCOUNTER 2018-11-29 14:43 | Inpatient (IN) | payer MEDICARE, MEDICAID ==
[~2018-11-29] VITALS: Ht 162.6 cm; Wt 72.1 kg
[2018-11-29] MEDS ORDERED: ONDANSETRON HCL 4MG/2ML INJ IV STA (15:47)
[2018-11-29 16:04] LABS: BASOPHILS % 1.1 % (0.0-2.0); EOSINOPHILS % 3.7 % (0.0-5.0); HEMATOCRIT. 34.8 % (42.0-52.0); HEMOGLOBIN. 11.5 g/dL (14.0-18.0); MEAN CORPUSCULAR HEMOGLOBIN 28.2 pg (28.0-32.0); MEAN CORPUSCULAR VOLUME 85.5 fL (80.0-94.0); MONOCYTES % 4.6 % (2.0-8.0); NEUTROPHILS % 72.6 % (40.0-76.0); PLATELET 213 x1000/uL (130-400); RED BLOOD CELL COUNT 4.07 mill/uL (4.7-6.1); RED CELL DISTRIBUTION WIDTH 16.1 % (11.6-14.6)
[2018-11-29 16:07] LABS: CHLORIDE 108 mEq/L (98-107); PROTHROMBIN TIME 10.2 sec (9.6-11.0)
[2018-11-29] MEDS ORDERED: ONDANSETRON HCL 4MG/2ML INJ IV PRN (18:00)
[2018-11-29] MEDS ORDERED: GUAIFENESIN 200MG/10ML SUGAR FREE UDC PO PRN (18:15)
[2018-11-29] MEDS ORDERED: ACETAMINOPHEN 325MG TABLET PO PRN (18:15)
[2018-11-29] MEDS ORDERED: IPRATROPIUM/ALBUTEROL 0.5-3(2.5)MG/3ML NEB INH PRN (18:15)
[2018-11-29] MEDS ORDERED: DIPHENHYDRAMINE 50MG/ML VIAL IV PRN (18:15)
[2018-11-29] MEDS ORDERED: HYDROCODONE/ACETAMINOPHEN 5/325MG TABLET PO PRN (18:15)
[2018-11-29] MEDS ORDERED: DOCUSATE SODIUM 100MG CAPSULE PO PRN (18:15)
[2018-11-29 18:31] LABS: PHOSPHORUS 5.5 mg/dL (2.5-4.9)
[2018-11-29 19:51] LABS: CLARITY URINE CLEAR (CLEAR); COLOR URINE YELLOW (YELLOW); KETONES URINE NEGATIVE (NEGATIVE); LEUKOCYTE ESTERASE URINE NEGATIVE (NEGATIVE); NITRITE URINE NEGATIVE (NEGATIVE); OCCULT BLOOD URINE 1+ (NEGATIVE); PROTEIN URINE 4+ (NEGATIVE); SPECIFIC GRAVITY URINE 1.017 (1.005-1.030); UROBILINOGEN URINE 0.2 E.U./dL (0.2-1.0)
[2018-11-29 22:15] LABS: CREATINE KINASE MB FRACTION 5.1 ng/mL (0.5-3.6)
[2018-11-29 22:30] VITALS: BP 163/79
[2018-11-29] MEDS ORDERED: DEXTROSE 50% WATER 50ML SYRINGE IV PRN (22:30)
[2018-11-29 22:52] VITALS: BP 163/79
[2018-11-30] VITALS (7 sets, daily range): BP systolic 142–175; BP diastolic 73–85
[2018-11-30] MEDS: BLOOD SUGAR DIAGNOSTIC STRIP TEST SCH ×4 (06:28→20:20)
[2018-11-30 06:40] LABS: BASOPHILS % 1.2 % (0.0-2.0); HEMATOCRIT. 33.4 % (42.0-52.0); HEMOGLOBIN. 10.9 g/dL (14.0-18.0); LYMPHOCYTES % 15.5 % (20.0-50.0); MEAN CORPUSCULAR HEMOGLOBIN 27.7 pg (28.0-32.0); MEAN CORPUSCULAR VOLUME 85.1 fL (80.0-94.0); MEAN PLATELET VOLUME 7.5 fl (7.4-10.4); MONOCYTES % 5.3 % (2.0-8.0); PLATELET 199 x1000/uL (130-400); RED BLOOD CELL COUNT 3.93 mill/uL (4.7-6.1); RED CELL DISTRIBUTION WIDTH 16.1 % (11.6-14.6)
[2018-11-30 07:13] LABS: CHLORIDE 111 mEq/L (98-107)
[2018-11-30 07:38] LABS: HDL CHOLESTEROL 42 mg/dL (40-59)
[2018-11-30 07:39] LABS: LDL CHOLESTEROL 93 mg/dL (5-100)
[2018-11-30] MEDS: INSULIN LISPRO 100 UNITS/ML SUBCUT SCH ×4 (07:40→20:40)
[2018-11-30 07:41] LABS: CREATINE KINASE 219 IU/L (39-308)
[2018-11-30 07:44] LABS: CREATINE KINASE MB FRACTION 5.1 ng/mL (0.5-3.6)
[2018-11-30] MEDS ORDERED: SODIUM BICARBONATE 8.4% 1 MEQ/ML 50ML SYR IV NR (08:11)
[2018-11-30] MEDS ORDERED: INSULIN REGULAR (HUMULIN R) UD 100 UNITS/ML SYR IV NR (08:11)
[2018-11-30] MEDS ORDERED: DEXTROSE 50% WATER 50ML SYRINGE IV NR (08:11)
[2018-11-30] MEDS ORDERED: SODIUM POLYSTYRENE SULFONATE 15 G/60 ML BOT PO NR (08:11)
[2018-11-30] MEDS ORDERED: CALCIUM GLUCONATE 1,000 MG in DEXT 5% WATER 90 ML IV NR (08:30)
[2018-11-30] MEDS: CLONIDINE 0.1MG TABLET PO PRN (16:43)
[2018-11-30] MEDS: ATORVASTATIN CALCIUM 20MG TABLET PO SCH (20:40)
[2018-11-30] MEDS ORDERED: INSULIN GLARGINE UD 100 UNITS/ML SYR SUBCUT SCH (22:00)
[2018-12-01] VITALS (7 sets, daily range): BP systolic 126–178; BP diastolic 64–90
[2018-12-01] MEDS: CLONIDINE 0.1MG TABLET PO PRN (04:54)
[2018-12-01] MEDS: BLOOD SUGAR DIAGNOSTIC STRIP TEST SCH ×4 (05:31→19:49)
[2018-12-01] MEDS: INSULIN LISPRO 100 UNITS/ML SUBCUT SCH ×8 (06:10→20:48)
[2018-12-01 06:34] LABS: BASOPHILS % 1.3 % (0.0-2.0); EOSINOPHILS % 3.5 % (0.0-5.0); HEMATOCRIT. 32.2 % (42.0-52.0); HEMOGLOBIN. 10.8 g/dL (14.0-18.0); MEAN CORPUSCULAR HEMOGLOBIN 28.4 pg (28.0-32.0); MEAN CORPUSCULAR VOLUME 84.7 fL (80.0-94.0); MEAN PLATELET VOLUME 7.4 fl (7.4-10.4); NEUTROPHILS % 66.2 % (40.0-76.0); PLATELET 195 x1000/uL (130-400); RED CELL DISTRIBUTION WIDTH 15.6 % (11.6-14.6)
[2018-12-01] MEDS ORDERED: INSULIN LISPRO 100 UNITS/ML SUBCUT SCH (07:10)
[2018-12-01] MEDS: AMLODIPINE 10MG TABLET PO SCH (08:57)
[2018-12-01] MEDS: ATORVASTATIN CALCIUM 20MG TABLET PO SCH (20:36)
[2018-12-01] MEDS ORDERED: INSULIN GLARGINE UD 100 UNITS/ML SYR SUBCUT SCH (22:00)
[2018-12-02] VITALS: BP 152/74
[2018-12-02] MEDS: BLOOD SUGAR DIAGNOSTIC STRIP TEST SCH ×2 (06:17→12:10)
[2018-12-02] MEDS: INSULIN LISPRO 100 UNITS/ML SUBCUT SCH ×3 (06:21→12:40)
[2018-12-02 07:16] LABS: EOSINOPHILS % 4.4 % (0.0-5.0); HEMATOCRIT. 32.5 % (42.0-52.0); HEMOGLOBIN. 10.9 g/dL (14.0-18.0); MEAN CORPUSCULAR HEMOGLOBIN 28.1 pg (28.0-32.0); MEAN CORPUSCULAR VOLUME 83.6 fL (80.0-94.0); MEAN PLATELET VOLUME 7.7 fl (7.4-10.4); MONOCYTES % 7.5 % (2.0-8.0); NEUTROPHILS % 66.1 % (40.0-76.0); PLATELET 213 x1000/uL (130-400); RED BLOOD CELL COUNT 3.89 mill/uL (4.7-6.1); RED CELL DISTRIBUTION WIDTH 15.2 % (11.6-14.6)
[2018-12-02 08:00] VITALS: BP 138/67
[2018-12-02] MEDS: AMLODIPINE 10MG TABLET PO SCH (10:04)
[2018-12-02] MEDS: CLONIDINE 0.1MG TABLET PO PRN (16:31)
[2018-12-02 16:38] VITALS: BP 149/69
== END 2018-12-02 17:05 | disposition home or self-care (01) | DRG 640 ==
LOC: ER 14:43 → 8WST 17:58 → ENRESERV 21:49 → 8WST 11-30 00:03
PROVIDERS: ADMIT Internal Medicine; ATTEND Internal Medicine
PROC: 5A1D70Z Performance of Urinary Filtration, Intermittent, Less than 6 Hours Per Day (ICD-10-PCS; principal; 2018-11-30)
PROC: 5A1D70Z Performance of Urinary Filtration, Intermittent, Less than 6 Hours Per Day (ICD-10-PCS; 2018-12-01)
DX: E87.5 Hyperkalemia (principal); N18.6 End stage renal disease; I13.2 Hypertensive heart and chronic kidney disease with heart failure and with stage 5 chronic kidney disease, or end stage renal disease; E11.22 Type 2 diabetes mellitus with diabetic chronic kidney disease; I25.10 Atherosclerotic heart disease of native coronary artery without angina pectoris; E78.5 Hyperlipidemia, unspecified; D63.8 Anemia in other chronic diseases classified elsewhere; I50.9 Heart failure, unspecified; K59.00 Constipation, unspecified; Z99.2 Dependence on renal dialysis; Z79.899 Other long term (current) drug therapy; Z79.4 Long term (current) use of insulin; Z95.5 Presence of coronary angioplasty implant and graft; Z91.15 Patient's noncompliance with renal dialysis
CPT/HCPCS: 36415; 80048; 80061; 82550; 82553; 82962; 83036; 83735; 84100; 84132; 84443; 93970; 96374; 96375; 97162; 99285; J0610; J1815; J2405; J3490; J7040; J7060

== ENCOUNTER 2018-12-10 08:17 | Inpatient (IN) | payer MEDICARE, MEDICAID ==
[2018-12-10] VITALS (7 sets, daily range): BP systolic 125–152; BP diastolic 67–76
[~2018-12-10] VITALS: Ht 167.6 cm; Wt 79.1 kg
[2018-12-10] MEDS: INSULIN LISPRO 100 UNITS/ML SUBCUT SCH ×2 (05:36→12:45)
[2018-12-10] MEDS: BLOOD SUGAR DIAGNOSTIC STRIP TEST SCH ×2 (05:36→12:48)
[2018-12-10] MEDS ORDERED: ACETAMINOPHEN 325MG TABLET PO STA (08:29)
[2018-12-10] MEDS ORDERED: SODIUM CHLORIDE 0.9% 1000ML BAG (SEPSIS BOLUS) IV ONE (08:30)
[2018-12-10] MEDS ORDERED: VANCOMYCIN 1 G PREMIX 200 ML IV ONE (08:30)
[2018-12-10 08:41] LABS: HEMATOCRIT. 34.1 % (42.0-52.0); HEMOGLOBIN. 11.2 g/dL (14.0-18.0); MEAN CORPUSCULAR VOLUME 85.4 fL (80.0-94.0); MEAN PLATELET VOLUME 7.5 fl (7.4-10.4); PLATELET 203 x1000/uL (130-400); RED BLOOD CELL COUNT 3.99 mill/uL (4.7-6.1); RED CELL DISTRIBUTION WIDTH 15.1 % (11.6-14.6)
[2018-12-10] MEDS ORDERED: ONDANSETRON HCL 4MG/2ML INJ IV ONE (08:45)
[2018-12-10 08:49] LABS: CHLORIDE 107 mEq/L (98-107); INR 1.1; PROTHROMBIN TIME 11.1 sec (9.6-11.0)
[2018-12-10 08:55] LABS: PHOSPHORUS 3.9 mg/dL (2.5-4.9)
[2018-12-10 09:24] LABS: PLATELET ESTIMATE NORMAL
[2018-12-10] MEDS ORDERED: OSELTAMIVIR 75MG CAPSULE PO ONE (09:45)
[2018-12-10 09:58] LABS: BG BASE EXCESS -6.7 mmol/L (-2.0-2.0); BG CARBOXYHEMOGLOBIN 0.1 % (0.5-1.5); BG DEOXYHEMOGLOBIN 16.7 % (0.0-5.0); BG FRACTION INSPIRED OXYGEN 32; BG HCO3 ACT 17.8 mmol/L (22.0-26.0); BG METHEMOGLOBIN 0.6 % (0.0-1.5); BG OXYGEN SATURATION 83.2 % (92.0-98.5); BG OXYHEMOGLOBIN 82.6 % (94.0-97.0); BG PH 7.362 (7.350-7.450); BG PO2 48.7 mmHg (75.0-100.0); BG SAMPLE SITE RIGHT RADIAL; BG TOTAL HEMOGLOBIN 11.8 g/dL (12.0-18.0); BG VENT MODE NASAL CANNULA
[2018-12-10] MEDS ORDERED: ENALAPRIL 2.5MG/2ML VIAL 2ML IV ONE (10:45)
[2018-12-10] MEDS ORDERED: DEXTROSE 50% WATER 50ML SYRINGE IV PRN (11:00)
[2018-12-10] MEDS ORDERED: IPRATROPIUM/ALBUTEROL 0.5-3(2.5)MG/3ML NEB HHN PRN ×2 (11:00→12:45)
[2018-12-10] MEDS ORDERED: LISINOPRIL 20MG TABLET PO SCH (11:00)
[2018-12-10] MEDS ORDERED: PIPERACILLIN/TAZ 3.375G PREMIX 50 ML IV SCH (11:15)
[2018-12-10] MEDS ORDERED: PIPERACILLIN/TAZ 3.375G PREMIX 50 ML IV NR (11:27)
[2018-12-10] MEDS ORDERED: PROCHLORPERAZINE 10MG/2ML VIAL IM PRN (12:15)
[2018-12-10] MEDS ORDERED: AZITHROMYCIN 500 MG in DEXT 5% WATER 250 ML IV SCH ×2 (12:45→15:30)
[2018-12-10] MEDS ORDERED: CEFTRIAXONE 1 G PREMIX 50 ML IV SCH ×2 (12:45→15:15)
[2018-12-10] MEDS ORDERED: METOCLOPRAMIDE HCL 10MG/2ML VIAL IV NR (12:48)
[2018-12-10] MEDS: AMLODIPINE 10MG TABLET PO SCH (13:00)
[2018-12-10] MEDS ORDERED: IBUPROFEN 800MG TABLET PO ONE (13:15)
[2018-12-10 13:41] LABS: BG BASE EXCESS -10.7 mmol/L (-2.0-2.0); BG DEOXYHEMOGLOBIN 19.1 % (0.0-5.0); BG FRACTION INSPIRED OXYGEN 100; BG HCO3 ACT 15.1 mmol/L (22.0-26.0); BG METHEMOGLOBIN 0.1 % (0.0-1.5); BG OXYGEN SATURATION 80.9 % (92.0-98.5); BG OXYHEMOGLOBIN 80.8 % (94.0-97.0); BG PCO2 33.5 mmHg (35.0-45.0); BG PH 7.273 (7.350-7.450); BG PO2 48.7 mmHg (75.0-100.0); BG SAMPLE SITE RIGHT RADIAL; BG TOTAL HEMOGLOBIN 11.6 g/dL (12.0-18.0); BG VENT MODE MASK - NRB
[2018-12-10] MEDS ORDERED: ETOMIDATE 2MG/ML 10ML VIAL IV ONE ×2 (13:54→14:00)
[2018-12-10] MEDS ORDERED: SUCCINYLCHOLINE CHLORIDE 200MG/10ML IV ONE (13:54)
[2018-12-10] MEDS ORDERED: MIDAZOLAM HCL 50 MG in DEXTROSE 5% WATER 40 ML IV ONE (14:00)
[2018-12-10] MEDS ORDERED: PROPOFOL 10MG/ML 100ML 100 ML IV PRN (14:00)
[2018-12-10] MEDS ORDERED: VECURONIUM BROMIDE 10 MG/VIAL IV ONE (14:00)
[2018-12-10] MEDS ORDERED: FENTANYL CITRATE/PF 500 MCG in SODIUM CHLORIDE 0.9% 40 ML IV PRN ×2 (14:15→15:00)
[2018-12-10] MEDS ORDERED: FENTANYL CITRATE/PF 50MCG/ML 2ML VIAL IV ONE (14:15)
[2018-12-10] MEDS ORDERED: PROPOFOL 10MG/ML 100ML 100 ML IV SCH (14:15)
[2018-12-10 14:24] LABS: BG BASE EXCESS -10.6 mmol/L (-2.0-2.0); BG DEOXYHEMOGLOBIN 3.2 % (0.0-5.0); BG HCO3 ACT 16.1 mmol/L (22.0-26.0); BG METHEMOGLOBIN 0.2 % (0.0-1.5); BG OXYGEN SATURATION 96.8 % (92.0-98.5); BG OXYHEMOGLOBIN 96.6 % (94.0-97.0); BG PCO2 38.9 mmHg (35.0-45.0); BG PH 7.236 (7.350-7.450); BG SAMPLE SITE RIGHT RADIAL; BG TIDAL VOLUME(mL) 500 mL; BG TOTAL HEMOGLOBIN 11.9 g/dL (12.0-18.0); BG VENT MODE VENT - A/C; BG VENT RATE 14 set
[2018-12-10] MEDS ORDERED: IPRATROPIUM/ALBUTEROL 0.5-3(2.5)MG/3ML NEB HHN SCH (16:00)
[2018-12-10] MEDS ORDERED: DOCUSATE SODIUM 250MG CAPSULE PO PRN (18:40)
[2018-12-10] MEDS ORDERED: INSULIN GLARGINE UD 100 UNITS/ML SYR SUBCUT SCH (21:00)
[2018-12-10] MEDS ORDERED: INSULIN GLARGINE UD 100 UNITS/ML SYR SUBCUT NR (21:30)
[2018-12-10] MEDS: PROPOFOL 10MG/ML 100ML 100 ML IV PRN (22:30)
[2018-12-10] MEDS ORDERED: SODIUM BICARBONATE 8.4% 1 MEQ/ML 50ML SYR IV NR (23:00)
[2018-12-10] MEDS: METOCLOPRAMIDE HCL 10MG/2ML VIAL IV SCH (23:39)
[2018-12-11] VITALS (96 sets, daily range): BP systolic 92–193; BP diastolic 48–98
[2018-12-11] MEDS: ACETYLCYSTEINE 100MG/ML 10% VIAL 4ML INH SCH ×3 (00:54→16:07)
[2018-12-11] MEDS: IPRATROPIUM/ALBUTEROL 0.5-3(2.5)MG/3ML NEB HHN SCH ×6 (00:54→20:20)
[2018-12-11] MEDS ORDERED: NOREPINEPHRINE 16 MG in DEXT 5% WATER 234 ML IV PRN (03:33)
[2018-12-11] MEDS: PROPOFOL 10MG/ML 100ML 100 ML IV PRN ×2 (04:16→09:46)
[2018-12-11] MEDS: METOCLOPRAMIDE HCL 10MG/2ML VIAL IV SCH (05:37)
[2018-12-11] MEDS: BLOOD SUGAR DIAGNOSTIC STRIP TEST SCH ×4 (05:38→21:17)
[2018-12-11] MEDS: INSULIN LISPRO 100 UNITS/ML SUBCUT SCH ×4 (05:38→21:00)
[2018-12-11 05:52] LABS: BASOPHILS % 0.4 % (0.0-2.0); EOSINOPHILS % 0.3 % (0.0-5.0); HEMATOCRIT. 31.6 % (42.0-52.0); LYMPHOCYTES % 12.8 % (20.0-50.0); MEAN CORPUSCULAR HEMOGLOBIN 29.3 pg (28.0-32.0); MEAN CORPUSCULAR VOLUME 84.4 fL (80.0-94.0); MEAN PLATELET VOLUME 7.6 fl (7.4-10.4); MONOCYTES % 8.8 % (2.0-8.0); NEUTROPHILS % 77.7 % (40.0-76.0); PLATELET 177 x1000/uL (130-400); RED BLOOD CELL COUNT 3.75 mill/uL (4.7-6.1); RED CELL DISTRIBUTION WIDTH 15.5 % (11.6-14.6)
[2018-12-11 08:10] LABS: BG BASE EXCESS -0.2 mmol/L (-2.0-2.0); BG CARBOXYHEMOGLOBIN 0.3 % (0.5-1.5); BG DEOXYHEMOGLOBIN 4.3 % (0.0-5.0); BG FRACTION INSPIRED OXYGEN 60; BG HCO3 ACT 23.5 mmol/L (22.0-26.0); BG METHEMOGLOBIN 0.3 % (0.0-1.5); BG OXYGEN SATURATION 95.7 % (92.0-98.5); BG OXYHEMOGLOBIN 95.1 % (94.0-97.0); BG PCO2 34.7 mmHg (35.0-45.0); BG PH 7.449 (7.350-7.450); BG PO2 78.3 mmHg (75.0-100.0); BG SAMPLE SITE RIGHT RADIAL; BG TIDAL VOLUME(mL) 500 mL; BG VENT MODE VENT - A/C; BG VENT RATE 18 set
[2018-12-11] MEDS: AMLODIPINE 10MG TABLET PO SCH (09:00)
[2018-12-11] MEDS: ENOXAPARIN 30MG/0.3ML SYR SUBCUT SCH (09:47)
[2018-12-11] MEDS: LISINOPRIL 20MG TABLET PO SCH (11:01)
[2018-12-11] MEDS: ACETAMINOPHEN 325MG TABLET PO PRN ×2 (11:01→22:52)
[2018-12-11] MEDS: PANTOPRAZOLE SODIUM 40 MG/VIAL IV SCH (12:29)
[2018-12-11] MEDS: FENTANYL CITRATE/PF 500 MCG in SODIUM CHLORIDE 0.9% 40 ML IV PRN ×3 (12:32→23:01)
[2018-12-11] MEDS: HYDRALAZINE 20MG/ML VIAL IV PRN ×2 (15:16→22:46)
[2018-12-11] MEDS: AZITHROMYCIN 500 MG in DEXT 5% WATER 250 ML IV SCH (15:56)
[2018-12-11] MEDS: MIDAZOLAM HCL 100 MG in DEXT 5% WATER 80 ML IV PRN (15:58)
[2018-12-11] MEDS ORDERED: OSELTAMIVIR 30MG CAPSULE PO SCH (21:00)
[2018-12-11] MEDS: CEFTRIAXONE 1 G PREMIX 50 ML IV SCH (21:15)
[2018-12-11] MEDS: ATORVASTATIN CALCIUM 20MG TABLET PO SCH (21:15)
[2018-12-11] MEDS ORDERED: INSULIN GLARGINE UD 100 UNITS/ML SYR SUBCUT SCH (22:00)
[2018-12-12] VITALS (103 sets, daily range): BP systolic 55–195; BP diastolic 28–93
[2018-12-12] MEDS: IPRATROPIUM/ALBUTEROL 0.5-3(2.5)MG/3ML NEB HHN SCH ×6 (00:21→23:50)
[2018-12-12] MEDS: ACETYLCYSTEINE 100MG/ML 10% VIAL 4ML INH SCH ×4 (00:21→23:49)
[2018-12-12] MEDS: FENTANYL CITRATE/PF 500 MCG in SODIUM CHLORIDE 0.9% 40 ML IV PRN ×4 (03:33→23:51)
[2018-12-12 05:32] LABS: BASOPHILS % 0.7 % (0.0-2.0); EOSINOPHILS % 0.7 % (0.0-5.0); HEMOGLOBIN. 9.1 g/dL (14.0-18.0); LYMPHOCYTES % 12.5 % (20.0-50.0); MEAN CORPUSCULAR HEMOGLOBIN 28.4 pg (28.0-32.0); MEAN CORPUSCULAR VOLUME 84.7 fL (80.0-94.0); MEAN PLATELET VOLUME 7.8 fl (7.4-10.4); MONOCYTES % 11.7 % (2.0-8.0); NEUTROPHILS % 74.4 % (40.0-76.0); PLATELET 175 x1000/uL (130-400); RED BLOOD CELL COUNT 3.19 mill/uL (4.7-6.1); RED CELL DISTRIBUTION WIDTH 15.9 % (11.6-14.6)
[2018-12-12] MEDS: BLOOD SUGAR DIAGNOSTIC STRIP TEST SCH ×4 (06:32→21:18)
[2018-12-12] MEDS: INSULIN LISPRO 100 UNITS/ML SUBCUT SCH ×4 (06:33→21:00)
[2018-12-12 08:19] LABS: BG CARBOXYHEMOGLOBIN 0.2 % (0.5-1.5); BG DEOXYHEMOGLOBIN 1.2 % (0.0-5.0); BG FRACTION INSPIRED OXYGEN 50; BG HCO3 ACT 19.9 mmol/L (22.0-26.0); BG METHEMOGLOBIN 0.2 % (0.0-1.5); BG OXYGEN SATURATION 98.8 % (92.0-98.5); BG OXYHEMOGLOBIN 98.4 % (94.0-97.0); BG PCO2 36.2 mmHg (35.0-45.0); BG PH 7.358 (7.350-7.450); BG PO2 215.5 mmHg (75.0-100.0); BG SAMPLE SITE RIGHT RADIAL; BG TIDAL VOLUME(mL) 500 mL; BG VENT MODE VENT - A/C; BG VENT RATE 16 set
[2018-12-12] MEDS ORDERED: OSELTAMIVIR 30MG CAPSULE PO SCH (09:00)
[2018-12-12] MEDS: ENOXAPARIN 30MG/0.3ML SYR SUBCUT SCH (12:09)
[2018-12-12] MEDS: METOCLOPRAMIDE HCL 10MG/2ML VIAL IV SCH ×3 (12:10→23:49)
[2018-12-12] MEDS: PANTOPRAZOLE SODIUM 40 MG/VIAL IV SCH (12:10)
[2018-12-12] MEDS: LISINOPRIL 20MG TABLET PO SCH (12:12)
[2018-12-12] MEDS: AMLODIPINE 10MG TABLET PO SCH (12:12)
[2018-12-12] MEDS: ACETAMINOPHEN 325MG TABLET PO PRN (12:31)
[2018-12-12] MEDS: AZITHROMYCIN 500 MG in DEXT 5% WATER 250 ML IV SCH (15:29)
[2018-12-12] MEDS: MIDAZOLAM HCL 100 MG in DEXT 5% WATER 80 ML IV PRN (15:29)
[2018-12-12] MEDS: ATORVASTATIN CALCIUM 20MG TABLET PO SCH (20:46)
[2018-12-12] MEDS: CEFTRIAXONE 1 G PREMIX 50 ML IV SCH (20:46)
[2018-12-13] VITALS (89 sets, daily range): BP systolic 101–185; BP diastolic 23–112
[2018-12-13] MEDS: HYDRALAZINE 20MG/ML VIAL IV PRN (00:58)
[2018-12-13] MEDS: IPRATROPIUM/ALBUTEROL 0.5-3(2.5)MG/3ML NEB HHN SCH ×5 (03:32→21:08)
[2018-12-13 05:58] LABS: BASOPHILS % 0.8 % (0.0-2.0); EOSINOPHILS % 3.3 % (0.0-5.0); MEAN CORPUSCULAR HEMOGLOBIN 28.3 pg (28.0-32.0); MEAN CORPUSCULAR VOLUME 84.8 fL (80.0-94.0); MEAN PLATELET VOLUME 8.2 fl (7.4-10.4); MONOCYTES % 10.6 % (2.0-8.0); NEUTROPHILS % 72.3 % (40.0-76.0); PLATELET 180 x1000/uL (130-400); RED BLOOD CELL COUNT 3.54 mill/uL (4.7-6.1); RED CELL DISTRIBUTION WIDTH 15.2 % (11.6-14.6)
[2018-12-13] MEDS: INSULIN LISPRO 100 UNITS/ML SUBCUT SCH ×3 (06:47→17:25)
[2018-12-13] MEDS: BLOOD SUGAR DIAGNOSTIC STRIP TEST SCH ×3 (06:47→17:22)
[2018-12-13] MEDS: METOCLOPRAMIDE HCL 10MG/2ML VIAL IV SCH ×3 (06:51→17:24)
[2018-12-13] MEDS: ENOXAPARIN 30MG/0.3ML SYR SUBCUT SCH (08:06)
[2018-12-13] MEDS: PANTOPRAZOLE SODIUM 40 MG/VIAL IV SCH (08:06)
[2018-12-13] MEDS: AMLODIPINE 10MG TABLET PO SCH (08:07)
[2018-12-13] MEDS: ACETYLCYSTEINE 100MG/ML 10% VIAL 4ML INH SCH ×2 (08:35→16:01)
[2018-12-13] MEDS: MIDAZOLAM HCL 100 MG in DEXT 5% WATER 80 ML IV PRN ×2 (08:55→22:41)
[2018-12-13] MEDS: LISINOPRIL 20MG TABLET PO SCH (09:18)
[2018-12-13] MEDS: MORPHINE SULFATE 4 MG/ML CPJ (NOT FOR IM USE) IV PRN ×3 (10:09→18:39)
[2018-12-13 10:26] LABS: BG BASE EXCESS -0.7 mmol/L (-2.0-2.0); BG CARBOXYHEMOGLOBIN 0.3 % (0.5-1.5); BG DEOXYHEMOGLOBIN 0.7 % (0.0-5.0); BG FRACTION INSPIRED OXYGEN 50; BG HCO3 ACT 21.3 mmol/L (22.0-26.0); BG METHEMOGLOBIN 0.6 % (0.0-1.5); BG OXYGEN SATURATION 99.3 % (92.0-98.5); BG OXYHEMOGLOBIN 98.4 % (94.0-97.0); BG PCO2 26.8 mmHg (35.0-45.0); BG PH 7.519 (7.350-7.450); BG PO2 250.5 mmHg (75.0-100.0); BG SAMPLE SITE RIGHT RADIAL; BG TIDAL VOLUME(mL) 500 mL; BG TOTAL HEMOGLOBIN 10.3 g/dL (12.0-18.0); BG VENT MODE VENT - A/C; BG VENT RATE 16 set
[2018-12-13] MEDS: OSELTAMIVIR PHOSPHATE 6 MG/1 ML PO SCH (12:39)
[2018-12-13] MEDS: AZITHROMYCIN 500 MG in DEXT 5% WATER 250 ML IV SCH (15:56)
[2018-12-13] MEDS: ATORVASTATIN CALCIUM 20MG TABLET PO SCH (21:05)
[2018-12-13] MEDS: CEFTRIAXONE 1 G PREMIX 50 ML IV SCH (21:05)
[2018-12-14] VITALS (102 sets, daily range): BP systolic 85–222; BP diastolic 24–113
[2018-12-14] MEDS: METOCLOPRAMIDE HCL 10MG/2ML VIAL IV SCH ×4 (00:03→17:10)
[2018-12-14] MEDS: BLOOD SUGAR DIAGNOSTIC STRIP TEST SCH ×4 (00:03→18:06)
[2018-12-14] MEDS: IPRATROPIUM/ALBUTEROL 0.5-3(2.5)MG/3ML NEB HHN SCH ×6 (00:36→21:11)
[2018-12-14] MEDS: ACETYLCYSTEINE 100MG/ML 10% VIAL 4ML INH SCH ×3 (00:37→16:19)
[2018-12-14] MEDS: MORPHINE SULFATE 4 MG/ML CPJ (NOT FOR IM USE) IV PRN ×3 (00:55→22:53)
[2018-12-14] MEDS: INSULIN LISPRO 100 UNITS/ML SUBCUT SCH ×4 (06:00→18:06)
[2018-12-14 06:11] LABS: BASOPHILS % 0.5 % (0.0-2.0); EOSINOPHILS % 6.9 % (0.0-5.0); HEMATOCRIT. 28.1 % (42.0-52.0); HEMOGLOBIN. 9.4 g/dL (14.0-18.0); LYMPHOCYTES % 20.7 % (20.0-50.0); MEAN CORPUSCULAR HEMOGLOBIN 28.4 pg (28.0-32.0); MEAN CORPUSCULAR VOLUME 84.5 fL (80.0-94.0); MEAN PLATELET VOLUME 7.8 fl (7.4-10.4); MONOCYTES % 10.2 % (2.0-8.0); NEUTROPHILS % 61.7 % (40.0-76.0); PLATELET 181 x1000/uL (130-400); RED BLOOD CELL COUNT 3.32 mill/uL (4.7-6.1); RED CELL DISTRIBUTION WIDTH 15.4 % (11.6-14.6)
[2018-12-14] MEDS: AMLODIPINE 10MG TABLET PO SCH (08:32)
[2018-12-14] MEDS: LISINOPRIL 20MG TABLET PO SCH (08:32)
[2018-12-14] MEDS: PANTOPRAZOLE SODIUM 40 MG/VIAL IV SCH (08:36)
[2018-12-14] MEDS: MIDAZOLAM HCL 100 MG in DEXT 5% WATER 80 ML IV PRN (09:49)
[2018-12-14] MEDS: ENOXAPARIN 30MG/0.3ML SYR SUBCUT SCH (11:16)
[2018-12-14] MEDS: OSELTAMIVIR PHOSPHATE 6 MG/1 ML PO SCH (11:24)
[2018-12-14] MEDS: AZITHROMYCIN 500 MG in DEXT 5% WATER 250 ML IV SCH (16:47)
[2018-12-14] MEDS: ATORVASTATIN CALCIUM 20MG TABLET PO SCH (20:42)
[2018-12-14] MEDS: LORAZEPAM 2MG/ML CPJ IV PRN (20:42)
[2018-12-14] MEDS: CEFTRIAXONE 1 G PREMIX 50 ML IV SCH (20:42)
[2018-12-14] MEDS ORDERED: EPOETIN ALFA 10000UNITS/ML VIAL SUBCUT SCH (21:00)
[2018-12-15] VITALS (85 sets, daily range): BP systolic 96–188; BP diastolic 52–103
[2018-12-15] MEDS: BLOOD SUGAR DIAGNOSTIC STRIP TEST SCH ×5 (00:24→23:54)
[2018-12-15] MEDS: METOCLOPRAMIDE HCL 10MG/2ML VIAL IV SCH ×5 (00:30→23:47)
[2018-12-15] MEDS: ACETYLCYSTEINE 100MG/ML 10% VIAL 4ML INH SCH ×3 (00:45→16:02)
[2018-12-15] MEDS: IPRATROPIUM/ALBUTEROL 0.5-3(2.5)MG/3ML NEB HHN SCH ×6 (00:45→21:18)
[2018-12-15] MEDS: LORAZEPAM 2MG/ML CPJ IV PRN (04:34)
[2018-12-15 05:14] LABS: BASOPHILS % 0.8 % (0.0-2.0); EOSINOPHILS % 2.8 % (0.0-5.0); HEMATOCRIT. 34.4 % (42.0-52.0); HEMOGLOBIN. 11.4 g/dL (14.0-18.0); LYMPHOCYTES % 19.3 % (20.0-50.0); MEAN CORPUSCULAR HEMOGLOBIN 27.7 pg (28.0-32.0); MEAN CORPUSCULAR VOLUME 83.4 fL (80.0-94.0); MEAN PLATELET VOLUME 7.8 fl (7.4-10.4); MONOCYTES % 10.6 % (2.0-8.0); NEUTROPHILS % 66.5 % (40.0-76.0); PLATELET 231 x1000/uL (130-400); RED BLOOD CELL COUNT 4.13 mill/uL (4.7-6.1)
[2018-12-15] MEDS: INSULIN LISPRO 100 UNITS/ML SUBCUT SCH ×5 (06:00→23:54)
[2018-12-15] MEDS: PANTOPRAZOLE SODIUM 40 MG/VIAL IV SCH (09:11)
[2018-12-15] MEDS: AMLODIPINE 10MG TABLET PO SCH (09:11)
[2018-12-15] MEDS: LISINOPRIL 20MG TABLET PO SCH (09:12)
[2018-12-15] MEDS: ENOXAPARIN 30MG/0.3ML SYR SUBCUT SCH (09:13)
[2018-12-15 09:54] LABS: BG BASE EXCESS -1.2 mmol/L (-2.0-2.0); BG CARBOXYHEMOGLOBIN 0.3 % (0.5-1.5); BG DEOXYHEMOGLOBIN 0.9 % (0.0-5.0); BG FRACTION INSPIRED OXYGEN 40; BG HCO3 ACT 24.1 mmol/L (22.0-26.0); BG METHEMOGLOBIN 0.8 % (0.0-1.5); BG OXYGEN SATURATION 99.1 % (92.0-98.5); BG PCO2 42.5 mmHg (35.0-45.0); BG PH 7.371 (7.350-7.450); BG PO2 205.3 mmHg (75.0-100.0); BG PRESSURE SUPPORT 8; BG SAMPLE SITE RIGHT RADIAL; BG TOTAL HEMOGLOBIN 11.7 g/dL (12.0-18.0); BG VENT MODE VENT - CPAP
[2018-12-15] MEDS: OSELTAMIVIR PHOSPHATE 6 MG/1 ML PO SCH (12:17)
[2018-12-15] MEDS: AZITHROMYCIN 500 MG in DEXT 5% WATER 250 ML IV SCH (17:56)
[2018-12-15] MEDS: ATORVASTATIN CALCIUM 20MG TABLET PO SCH (20:52)
[2018-12-15] MEDS: CEFTRIAXONE 1 G PREMIX 50 ML IV SCH (20:52)
[2018-12-16] VITALS (38 sets, daily range): BP systolic 99–152; BP diastolic 53–74
[2018-12-16] MEDS: ACETYLCYSTEINE 100MG/ML 10% VIAL 4ML INH SCH (00:30)
[2018-12-16] MEDS: IPRATROPIUM/ALBUTEROL 0.5-3(2.5)MG/3ML NEB HHN SCH ×6 (00:31→20:27)
[2018-12-16 05:09] LABS: BASOPHILS % 0.7 % (0.0-2.0); EOSINOPHILS % 2.9 % (0.0-5.0); HEMATOCRIT. 31.4 % (42.0-52.0); HEMOGLOBIN. 10.6 g/dL (14.0-18.0); LYMPHOCYTES % 20.5 % (20.0-50.0); MEAN CORPUSCULAR HEMOGLOBIN 27.9 pg (28.0-32.0); MEAN CORPUSCULAR VOLUME 82.9 fL (80.0-94.0); MEAN PLATELET VOLUME 7.6 fl (7.4-10.4); MONOCYTES % 8.5 % (2.0-8.0); NEUTROPHILS % 67.4 % (40.0-76.0); PLATELET 231 x1000/uL (130-400); RED BLOOD CELL COUNT 3.79 mill/uL (4.7-6.1); RED CELL DISTRIBUTION WIDTH 14.6 % (11.6-14.6)
[2018-12-16] MEDS: INSULIN LISPRO 100 UNITS/ML SUBCUT SCH ×3 (05:38→18:00)
[2018-12-16] MEDS: BLOOD SUGAR DIAGNOSTIC STRIP TEST SCH ×3 (05:38→18:35)
[2018-12-16] MEDS: METOCLOPRAMIDE HCL 10MG/2ML VIAL IV SCH ×3 (05:38→18:44)
[2018-12-16] MEDS: PANTOPRAZOLE SODIUM 40 MG/VIAL IV SCH (08:32)
[2018-12-16] MEDS: LISINOPRIL 20MG TABLET PO SCH (08:32)
[2018-12-16] MEDS: AMLODIPINE 10MG TABLET PO SCH (08:32)
[2018-12-16] MEDS: ENOXAPARIN 30MG/0.3ML SYR SUBCUT SCH (08:33)
[2018-12-16] MEDS: OSELTAMIVIR PHOSPHATE 6 MG/1 ML PO SCH (13:35)
[2018-12-16] MEDS: AZITHROMYCIN 500 MG in DEXT 5% WATER 250 ML IV SCH (18:43)
[2018-12-16] MEDS: ONDANSETRON HCL 4MG/2ML INJ IV PRN (18:44)
[2018-12-16] MEDS: CEFTRIAXONE 1 G PREMIX 50 ML IV SCH (20:47)
[2018-12-16] MEDS: ATORVASTATIN CALCIUM 20MG TABLET PO SCH (20:48)
[2018-12-17] VITALS (16 sets, daily range): BP systolic 101–144; BP diastolic 46–76
[2018-12-17] MEDS: INSULIN LISPRO 100 UNITS/ML SUBCUT SCH ×5 (00:33→20:14)
[2018-12-17] MEDS: IPRATROPIUM/ALBUTEROL 0.5-3(2.5)MG/3ML NEB HHN SCH ×5 (00:48→20:24)
[2018-12-17] MEDS: METOCLOPRAMIDE HCL 10MG/2ML VIAL IV SCH ×4 (01:57→17:37)
[2018-12-17] MEDS: ONDANSETRON HCL 4MG/2ML INJ IV PRN (05:55)
[2018-12-17] MEDS: BLOOD SUGAR DIAGNOSTIC STRIP TEST SCH ×5 (05:55→20:13)
[2018-12-17] MEDS: AMLODIPINE 10MG TABLET PO SCH (09:00)
[2018-12-17] MEDS: LISINOPRIL 20MG TABLET PO SCH (09:00)
[2018-12-17 09:37] LABS: BASOPHILS % 0.5 % (0.0-2.0); EOSINOPHILS % 2.4 % (0.0-5.0); HEMATOCRIT. 31.2 % (42.0-52.0); HEMOGLOBIN. 10.5 g/dL (14.0-18.0); LYMPHOCYTES % 11.8 % (20.0-50.0); MEAN CORPUSCULAR HEMOGLOBIN 28.1 pg (28.0-32.0); MEAN CORPUSCULAR VOLUME 83.3 fL (80.0-94.0); MEAN PLATELET VOLUME 7.3 fl (7.4-10.4); MONOCYTES % 9.4 % (2.0-8.0); NEUTROPHILS % 75.9 % (40.0-76.0); PLATELET 281 x1000/uL (130-400); RED BLOOD CELL COUNT 3.74 mill/uL (4.7-6.1); RED CELL DISTRIBUTION WIDTH 14.7 % (11.6-14.6)
[2018-12-17] MEDS: ENOXAPARIN 30MG/0.3ML SYR SUBCUT SCH (10:33)
[2018-12-17] MEDS: OMEPRAZOLE 20MG CAPSULE EXTENDED RELEASE PO SCH (12:06)
[2018-12-17] MEDS: OSELTAMIVIR PHOSPHATE 6 MG/1 ML PO SCH (12:07)
[2018-12-17] MEDS ORDERED: AZITHROMYCIN 500 MG TABLET PO SCH (16:00)
[2018-12-17] MEDS: ATORVASTATIN CALCIUM 20MG TABLET PO SCH (20:13)
[2018-12-17] MEDS: CEFTRIAXONE 1 G PREMIX 50 ML IV SCH (20:21)
[2018-12-18] VITALS (9 sets, daily range): BP systolic 97–143; BP diastolic 59–74
[2018-12-18] MEDS: IPRATROPIUM/ALBUTEROL 0.5-3(2.5)MG/3ML NEB HHN SCH ×2 (00:42→07:33)
[2018-12-18] MEDS: METOCLOPRAMIDE HCL 10MG/2ML VIAL IV SCH ×2 (05:49→05:50)
[2018-12-18] MEDS: BLOOD SUGAR DIAGNOSTIC STRIP TEST SCH (05:50)
[2018-12-18] MEDS: OMEPRAZOLE 20MG CAPSULE EXTENDED RELEASE PO SCH (05:59)
[2018-12-18] MEDS: INSULIN LISPRO 100 UNITS/ML SUBCUT SCH (06:08)
[2018-12-18 07:16] LABS: EOSINOPHILS % 4.1 % (0.0-5.0); HEMATOCRIT. 30.7 % (42.0-52.0); HEMOGLOBIN. 10.4 g/dL (14.0-18.0); LYMPHOCYTES % 18.7 % (20.0-50.0); MEAN CORPUSCULAR VOLUME 82.2 fL (80.0-94.0); MEAN PLATELET VOLUME 6.9 fl (7.4-10.4); MONOCYTES % 8.3 % (2.0-8.0); NEUTROPHILS % 67.9 % (40.0-76.0); PLATELET 315 x1000/uL (130-400); RED BLOOD CELL COUNT 3.73 mill/uL (4.7-6.1); RED CELL DISTRIBUTION WIDTH 14.3 % (11.6-14.6)
[2018-12-18] MEDS: ENOXAPARIN 30MG/0.3ML SYR SUBCUT SCH (08:32)
[2018-12-18] MEDS: AMLODIPINE 10MG TABLET PO SCH (08:32)
[2018-12-18] MEDS: LISINOPRIL 20MG TABLET PO SCH (08:32)
[2018-12-19] MEDS ORDERED: FAMOTIDINE 20MG TABLET PO SCH (09:00)
== END 2018-12-18 18:52 | disposition home or self-care (01) | DRG 870 ==
LOC: ER 08:17 → EDBEDREQSVC 09:45 → EDBEDREQ 09:45 → ENRESERV 12:43 → CANRESERV 12:43 → MICUNO 13:58 → EDBEDREQ 14:09 → EDBEDREQSVC 14:09 → ENRESERV 20:29 → 5EST 12-16 09:45
PROVIDERS: ADMIT Internal Medicine; ATTEND Internal Medicine
PROC: 5A1955Z Respiratory Ventilation, Greater than 96 Consecutive Hours (ICD-10-PCS; principal; 2018-12-10)
PROC: 0BH17EZ Insertion of Endotracheal Airway into Trachea, Via Natural or Artificial Opening (ICD-10-PCS; 2018-12-10)
PROC: 5A1D70Z Performance of Urinary Filtration, Intermittent, Less than 6 Hours Per Day (ICD-10-PCS; 2018-12-10)
PROC: 02HV33Z Insertion of Infusion Device into Superior Vena Cava, Percutaneous Approach (ICD-10-PCS; 2018-12-12)
PROC: B548ZZA Ultrasonography of Superior Vena Cava, Guidance (ICD-10-PCS; 2018-12-12)
PROC: 5A1D70Z Performance of Urinary Filtration, Intermittent, Less than 6 Hours Per Day (ICD-10-PCS; 2018-12-12)
PROC: 5A1D70Z Performance of Urinary Filtration, Intermittent, Less than 6 Hours Per Day (ICD-10-PCS; 2018-12-14)
PROC: 5A1D70Z Performance of Urinary Filtration, Intermittent, Less than 6 Hours Per Day (ICD-10-PCS; 2018-12-16)
DX: A41.89 Other specified sepsis (principal); J96.01 Acute respiratory failure with hypoxia; N18.6 End stage renal disease; J10.01 Influenza due to other identified influenza virus with the same other identified influenza virus pneumonia; E44.1 Mild protein-calorie malnutrition; I13.2 Hypertensive heart and chronic kidney disease with heart failure and with stage 5 chronic kidney disease, or end stage renal disease; Z99.2 Dependence on renal dialysis; E11.22 Type 2 diabetes mellitus with diabetic chronic kidney disease; E11.43 Type 2 diabetes mellitus with diabetic autonomic (poly)neuropathy; K31.84 Gastroparesis; D64.9 Anemia, unspecified; E78.5 Hyperlipidemia, unspecified; E78.00 Pure hypercholesterolemia, unspecified; I25.10 Atherosclerotic heart disease of native coronary artery without angina pectoris; I50.9 Heart failure, unspecified; Z79.4 Long term (current) use of insulin; Z80.0 Family history of malignant neoplasm of digestive organs; Z95.5 Presence of coronary angioplasty implant and graft; Z79.899 Other long term (current) drug therapy; Z68.28 Body mass index [BMI] 28.0-28.9, adult; Z91.15 Patient's noncompliance with renal dialysis
CPT/HCPCS: 36415; 36569; 36600; 71045; 76705; 76937; 80048; 82375; 82805; 82962; 83605; 83735; 84100; 84145; 84478; 84484; 87070; 87804; 92610; 93005; 93970; 94002; 94003; 94640; 96365; 96375; 97162; 99291; C1725; C9113; J0330; J0360; J0456; J0696; J0885; J1650; J1815; J2060; J2250; J2270; J2405; J2543; J2704; J2765; J3010; J3370; J3490; J7030; J7042; J7050; J7060; J7608; J7620

== ENCOUNTER 2019-05-21 21:28 | Inpatient (IN) | payer MEDICARE, MEDICAID ==
[~2019-05-21] VITALS: Ht 162.6 cm; Wt 70.4 kg
[2019-05-21] MEDS ORDERED: SODIUM CHLORIDE 0.9% 1,000 ML IV ONE (23:39)
[2019-05-21] MEDS ORDERED: ONDANSETRON HCL 4MG/2ML INJ IV STA (23:39)
[2019-05-22 00:29] LABS: BASOPHILS % 0.9 % (0.0-2.0); EOSINOPHILS % 4.1 % (0.0-5.0); HEMATOCRIT. 30.5 % (42.0-52.0); HEMOGLOBIN. 10.2 g/dL (14.0-18.0); LYMPHOCYTES % 12.4 % (20.0-50.0); MEAN CORPUSCULAR HEMOGLOBIN 28.6 pg (28.0-32.0); MEAN CORPUSCULAR VOLUME 85.9 fL (80.0-94.0); MEAN PLATELET VOLUME 7.2 fl (7.4-10.4); MONOCYTES % 7.4 % (2.0-8.0); NEUTROPHILS % 75.2 % (40.0-76.0); PLATELET 256 x1000/uL (130-400); RED BLOOD CELL COUNT 3.54 mill/uL (4.7-6.1); RED CELL DISTRIBUTION WIDTH 13.6 % (11.6-14.6)
[2019-05-22 00:34] LABS: CHLORIDE 106 mEq/L (98-107)
[2019-05-22] MEDS ORDERED: MAGNESIUM/ALUMINUM HYDROXIDE/SIMETHICONE 30ML UDC PO PRN (06:45)
[2019-05-22] MEDS ORDERED: HYDROCODONE/ACETAMINOPHEN 10/325MG TABLET PO PRN (06:45)
[2019-05-22] MEDS ORDERED: HYDRALAZINE 20MG/ML VIAL IV PRN (06:45)
[2019-05-22] MEDS ORDERED: DEXTROSE 50% WATER 50ML SYRINGE IV PRN (06:45)
[2019-05-22] MEDS ORDERED: IPRATROPIUM/ALBUTEROL 0.5-3(2.5)MG/3ML NEB HHN PRN (06:45)
[2019-05-22] MEDS ORDERED: DIPHENHYDRAMINE 50MG/ML VIAL IV PRN (06:45)
[2019-05-22] MEDS ORDERED: GUAIFENESIN 200MG/10ML SUGAR FREE UDC PO PRN (06:45)
[2019-05-22] MEDS ORDERED: DOCUSATE SODIUM 100MG CAPSULE PO PRN (06:45)
[2019-05-22] MEDS ORDERED: LORAZEPAM 2MG/ML CPJ IV PRN (06:45)
[2019-05-22] MEDS ORDERED: MORPHINE SULFATE 2 MG/ML CPJ (NOT FOR IM USE) IV PRN (07:14)
[2019-05-22] MEDS: CLONIDINE 0.1MG TABLET PO PRN ×2 (07:20→23:29)
[2019-05-22] MEDS: BLOOD SUGAR DIAGNOSTIC STRIP TEST SCH ×4 (07:43→20:27)
[2019-05-22 08:00] VITALS: BP 170/87
[2019-05-22] MEDS: ENOXAPARIN 30MG/0.3ML SYR SUBCUT SCH (08:31)
[2019-05-22] MEDS: INSULIN LISPRO 100 UNITS/ML SUBCUT SCH ×4 (08:43→20:27)
[2019-05-22 11:06] VITALS: BP 170/87
[2019-05-22] MEDS ORDERED: INFLUENZA VIRUS VACCINE(AFLURIA) 0.5ML SYR IM ONE (13:00)
[2019-05-22 15:22] LABS: CREATINE KINASE 118 IU/L (39-308); CREATINE KINASE MB FRACTION 2.1 ng/mL (0.5-3.6)
[2019-05-22] MEDS: SODIUM CHLORIDE 0.9% INJ 3ML FLUSH IVF SCH ×2 (18:38→21:00)
[2019-05-22 21:03] VITALS: BP 158/71
[2019-05-22 23:31] VITALS: BP 170/68
[2019-05-22 23:58] LABS: CREATINE KINASE MB FRACTION 2.4 ng/mL (0.5-3.6)
[2019-05-23 05:02] VITALS: BP 159/76
[2019-05-23] MEDS: ACETAMINOPHEN 325MG TABLET PO PRN (05:02)
[2019-05-23] MEDS: SODIUM CHLORIDE 0.9% INJ 3ML FLUSH IVF SCH ×2 (05:02→14:00)
[2019-05-23 06:18] LABS: CHLORIDE 108 mEq/L (98-107)
[2019-05-23] MEDS: BLOOD SUGAR DIAGNOSTIC STRIP TEST SCH ×4 (06:23→21:29)
[2019-05-23 06:25] LABS: LDL CHOLESTEROL 81 mg/dL (5-100)
[2019-05-23 06:26] LABS: BASOPHILS % 1.1 % (0.0-2.0); EOSINOPHILS % 2.4 % (0.0-5.0); HEMATOCRIT. 27.7 % (42.0-52.0); HEMOGLOBIN. 9.3 g/dL (14.0-18.0); LYMPHOCYTES % 14.8 % (20.0-50.0); MEAN CORPUSCULAR HEMOGLOBIN 28.9 pg (28.0-32.0); MEAN PLATELET VOLUME 7.3 fl (7.4-10.4); MONOCYTES % 8.5 % (2.0-8.0); NEUTROPHILS % 73.2 % (40.0-76.0); PLATELET 239 x1000/uL (130-400); RED BLOOD CELL COUNT 3.22 mill/uL (4.7-6.1); RED CELL DISTRIBUTION WIDTH 13.4 % (11.6-14.6)
[2019-05-23 06:27] LABS: HDL CHOLESTEROL 35 mg/dL (40-59)
[2019-05-23 08:00] VITALS: BP 161/71
[2019-05-23] MEDS: CLONIDINE 0.1MG TABLET PO PRN (08:03)
[2019-05-23] MEDS: ENOXAPARIN 30MG/0.3ML SYR SUBCUT SCH (08:03)
[2019-05-23] MEDS: INSULIN LISPRO 100 UNITS/ML SUBCUT SCH ×4 (08:04→21:29)
[2019-05-23 12:00] VITALS: BP 130/59
[2019-05-23 16:00] VITALS: BP 138/63
[2019-05-23 20:00] VITALS: BP 134/58
[2019-05-24] VITALS: BP 165/72
[2019-05-24] MEDS: ACETAMINOPHEN 325MG TABLET PO PRN (00:57)
[2019-05-24] MEDS: SODIUM CHLORIDE 0.9% INJ 3ML FLUSH IVF SCH ×4 (01:19→21:04)
[2019-05-24 04:00] VITALS: BP 149/68
[2019-05-24] MEDS: INSULIN LISPRO 100 UNITS/ML SUBCUT SCH ×4 (07:30→21:04)
[2019-05-24] MEDS: BLOOD SUGAR DIAGNOSTIC STRIP TEST SCH ×4 (07:30→21:04)
[2019-05-24 07:38] LABS: BASOPHILS % 1.1 % (0.0-2.0); EOSINOPHILS % 5.6 % (0.0-5.0); HEMATOCRIT. 28.2 % (42.0-52.0); HEMOGLOBIN. 9.3 g/dL (14.0-18.0); LYMPHOCYTES % 15.5 % (20.0-50.0); MEAN CORPUSCULAR HEMOGLOBIN 28.7 pg (28.0-32.0); MEAN CORPUSCULAR VOLUME 87.1 fL (80.0-94.0); MEAN PLATELET VOLUME 7.3 fl (7.4-10.4); MONOCYTES % 8.4 % (2.0-8.0); NEUTROPHILS % 69.4 % (40.0-76.0); PLATELET 251 x1000/uL (130-400); RED BLOOD CELL COUNT 3.24 mill/uL (4.7-6.1); RED CELL DISTRIBUTION WIDTH 13.6 % (11.6-14.6)
[2019-05-24 08:00] VITALS: BP 168/75
[2019-05-24] MEDS: ONDANSETRON HCL 4MG/2ML INJ IV PRN (08:37)
[2019-05-24] MEDS: ENOXAPARIN 30MG/0.3ML SYR SUBCUT SCH (08:37)
[2019-05-24 12:00] VITALS: BP 164/76
[2019-05-24] MEDS: PANTOPRAZOLE SODIUM 40 MG/VIAL IV SCH (12:25)
[2019-05-24] MEDS: CLONIDINE 0.1MG TABLET PO PRN (14:33)
[2019-05-24 16:00] VITALS: BP 151/73
[2019-05-24 20:00] VITALS: BP 115/75
[2019-05-25] VITALS: BP 151/74
[2019-05-25] MEDS: ACETAMINOPHEN 325MG TABLET PO PRN ×2 (00:37→09:17)
[2019-05-25 04:00] VITALS: BP 139/70
[2019-05-25] MEDS: SODIUM CHLORIDE 0.9% INJ 3ML FLUSH IVF SCH ×3 (05:20→22:23)
[2019-05-25] MEDS: BLOOD SUGAR DIAGNOSTIC STRIP TEST SCH ×4 (07:05→21:00)
[2019-05-25] MEDS: INSULIN LISPRO 100 UNITS/ML SUBCUT SCH ×4 (07:50→22:23)
[2019-05-25 08:00] VITALS: BP 165/75
[2019-05-25] MEDS: ENOXAPARIN 30MG/0.3ML SYR SUBCUT SCH (09:10)
[2019-05-25] MEDS: PANTOPRAZOLE SODIUM 40 MG/VIAL IV SCH (09:10)
[2019-05-25] MEDS: CEFTRIAXONE 1 G PREMIX 50 ML IV SCH (11:27)
[2019-05-25 12:00] VITALS: BP 137/70
[2019-05-25 16:00] VITALS: BP 132/62
[2019-05-25 20:00] VITALS: BP 141/62
[2019-05-25] MEDS: ONDANSETRON HCL 4MG/2ML INJ IV PRN (22:28)
[2019-05-26] VITALS (7 sets, daily range): BP systolic 140–180; BP diastolic 62–89
[2019-05-26 06:25] LABS: EOSINOPHILS % 5.7 % (0.0-5.0); HEMATOCRIT. 26.7 % (42.0-52.0); HEMOGLOBIN. 9.4 g/dL (14.0-18.0); LYMPHOCYTES % 11.8 % (20.0-50.0); MEAN CORPUSCULAR HEMOGLOBIN 29.9 pg (28.0-32.0); MEAN CORPUSCULAR VOLUME 84.8 fL (80.0-94.0); MEAN PLATELET VOLUME 7.2 fl (7.4-10.4); MONOCYTES % 7.8 % (2.0-8.0); NEUTROPHILS % 73.7 % (40.0-76.0); PLATELET 286 x1000/uL (130-400); RED BLOOD CELL COUNT 3.15 mill/uL (4.7-6.1); RED CELL DISTRIBUTION WIDTH 13.1 % (11.6-14.6)
[2019-05-26] MEDS: BLOOD SUGAR DIAGNOSTIC STRIP TEST SCH ×4 (06:34→21:18)
[2019-05-26] MEDS: SODIUM CHLORIDE 0.9% INJ 3ML FLUSH IVF SCH ×3 (06:37→22:18)
[2019-05-26] MEDS: FAMOTIDINE 20MG/2ML VIAL IV SCH (08:31)
[2019-05-26] MEDS: INSULIN LISPRO 100 UNITS/ML SUBCUT SCH ×4 (08:42→21:00)
[2019-05-26] MEDS: ENOXAPARIN 30MG/0.3ML SYR SUBCUT SCH (09:00)
[2019-05-26] MEDS: CLONIDINE 0.1MG TABLET PO PRN (11:01)
[2019-05-26] MEDS: CEFTRIAXONE 1 G PREMIX 50 ML IV SCH (11:01)
[2019-05-26] MEDS: ACETAMINOPHEN 325MG TABLET PO PRN (21:15)
[2019-05-27] VITALS: BP 141/62
[2019-05-27 04:13] VITALS: BP 159/77
[2019-05-27] MEDS: BLOOD SUGAR DIAGNOSTIC STRIP TEST SCH (06:50)
[2019-05-27] MEDS: SODIUM CHLORIDE 0.9% INJ 3ML FLUSH IVF SCH (06:50)
[2019-05-27 08:00] VITALS: BP 175/78
[2019-05-27] MEDS: INSULIN LISPRO 100 UNITS/ML SUBCUT SCH (08:13)
[2019-05-27] MEDS: FAMOTIDINE 20MG/2ML VIAL IV SCH (08:51)
[2019-05-27] MEDS: ENOXAPARIN 30MG/0.3ML SYR SUBCUT SCH (08:51)
[2019-05-27] MEDS ORDERED: AMLODIPINE 10MG TABLET PO SCH (09:00)
[2019-05-27 10:02] VITALS: BP 175/78
[2019-05-27 10:30] VITALS: BP 153/77
[2019-05-27] MEDS: CEFTRIAXONE 1 G PREMIX 50 ML IV SCH (11:05)
[2019-05-27] MEDS: ONDANSETRON HCL 4MG/2ML INJ IV PRN (11:08)
== END 2019-05-27 12:25 | disposition home or self-care (01) | DRG 640 ==
LOC: ER 05-22 00:33 → 6WST 05-22 02:36 → EDBEDREQTM 05-22 02:38 → EDBEDREQ 05-22 02:38 → ENRESERV 05-22 04:45
PROVIDERS: ADMIT Internal Medicine; ATTEND Internal Medicine
PROC: 5A1D70Z Performance of Urinary Filtration, Intermittent, Less than 6 Hours Per Day (ICD-10-PCS; principal; 2019-05-22)
PROC: 5A1D70Z Performance of Urinary Filtration, Intermittent, Less than 6 Hours Per Day (ICD-10-PCS; 2019-05-24)
PROC: 5A1D70Z Performance of Urinary Filtration, Intermittent, Less than 6 Hours Per Day (ICD-10-PCS; 2019-05-26)
PROC: 5A1D70Z Performance of Urinary Filtration, Intermittent, Less than 6 Hours Per Day (ICD-10-PCS; 2019-05-27)
DX: E87.5 Hyperkalemia (principal); N18.6 End stage renal disease; E46 Unspecified protein-calorie malnutrition; I13.2 Hypertensive heart and chronic kidney disease with heart failure and with stage 5 chronic kidney disease, or end stage renal disease; R18.8 Other ascites; K57.92 Diverticulitis of intestine, part unspecified, without perforation or abscess without bleeding; N39.0 Urinary tract infection, site not specified; E11.22 Type 2 diabetes mellitus with diabetic chronic kidney disease; E78.5 Hyperlipidemia, unspecified; I50.9 Heart failure, unspecified; E78.00 Pure hypercholesterolemia, unspecified; I25.10 Atherosclerotic heart disease of native coronary artery without angina pectoris; K52.9 Noninfective gastroenteritis and colitis, unspecified; K29.70 Gastritis, unspecified, without bleeding; K37 Unspecified appendicitis; Z79.4 Long term (current) use of insulin; Z79.899 Other long term (current) drug therapy; Z99.2 Dependence on renal dialysis; Z91.15 Patient's noncompliance with renal dialysis; Z68.26 Body mass index [BMI] 26.0-26.9, adult
CPT/HCPCS: 36415; 71045; 74176; 80048; 80061; 82550; 82553; 82962; 83605; 84439; 84443; 84484; 90686; 93005; 96361; 96374; 99285; C9113; J0360; J0696; J1650; J1815; J2405; J3490; J7030

== ENCOUNTER 2019-06-23 05:58 | Emergency (ER) | payer MEDICARE, MEDICAID ==
[~2019-06-23] VITALS: Ht 165.1 cm; Wt 68.0 kg
[2019-06-23] MEDS ORDERED: METOCLOPRAMIDE HCL 10MG/2ML VIAL IV ONE (09:00)
[2019-06-23 09:01] LABS: BASOPHILS % 0.8 % (0.0-2.0); EOSINOPHILS % 4.4 % (0.0-5.0); HEMATOCRIT. 29.5 % (42.0-52.0); HEMOGLOBIN. 9.8 g/dL (14.0-18.0); MEAN CORPUSCULAR HEMOGLOBIN 28.7 pg (28.0-32.0); MEAN CORPUSCULAR VOLUME 86.5 fL (80.0-94.0); MEAN PLATELET VOLUME 7.6 fl (7.4-10.4); MONOCYTES % 4.1 % (2.0-8.0); NEUTROPHILS % 72.7 % (40.0-76.0); PLATELET 237 x1000/uL (130-400); RED BLOOD CELL COUNT 3.41 mill/uL (4.7-6.1)
[2019-06-23 09:03] LABS: CHLORIDE 111 mEq/L (98-107)
[2019-06-23 09:07] LABS: ETHANOL BLOOD < 10 mg/dL
[2019-06-23 09:53] VITALS: BP 154/80
== END 2019-06-23 11:22 | disposition home or self-care (01) ==
LOC: ER 05:58
DX: R11.0 Nausea (principal); I12.0 Hypertensive chronic kidney disease with stage 5 chronic kidney disease or end stage renal disease; E11.22 Type 2 diabetes mellitus with diabetic chronic kidney disease; N18.6 End stage renal disease; Z99.2 Dependence on renal dialysis; Z79.4 Long term (current) use of insulin
CPT/HCPCS: 36415; 71045; 80053; 80320; 83690; 83880; 84484; 85025; 93005; 96374; 99284; J2765; G0480

== ENCOUNTER 2020-01-22 10:04 | Emergency (ER) | payer MEDICAID, MEDICARE ==
[~2020-01-22] VITALS: Ht 165.1 cm; Wt 69.0 kg
[2020-01-22] MEDS ORDERED: ACETAMINOPHEN 325MG TABLET PO STA (10:45)
[2020-01-22 11:47] VITALS: BP 143/79
== END 2020-01-22 11:49 | disposition home or self-care (01) ==
LOC: ER 10:04
DX: S80.02XA Contusion of left knee, initial encounter (principal); E11.9 Type 2 diabetes mellitus without complications; I10 Essential (primary) hypertension; Z79.4 Long term (current) use of insulin; Z79.899 Other long term (current) drug therapy; Z99.2 Dependence on renal dialysis; W01.0XXA Fall on same level from slipping, tripping and stumbling without subsequent striking against object, initial encounter; Y93.89 Activity, other specified; Y92.89 Other specified places as the place of occurrence of the external cause; Y99.8 Other external cause status
CPT/HCPCS: 73562; 99283

== ENCOUNTER 2020-01-26 14:35 | Emergency (ER) | payer MEDICARE, MEDICAID ==
[~2020-01-26] VITALS: Ht 165.1 cm; Wt 69.0 kg
[2020-01-26 15:27] LABS: BASOPHILS % 0.9 % (0.0-2.0); EOSINOPHILS % 7.2 % (0.0-5.0); HEMATOCRIT. 34.5 % (42.0-52.0); HEMOGLOBIN. 11.7 g/dL (14.0-18.0); LYMPHOCYTES % 11.5 % (20.0-50.0); MEAN CORPUSCULAR HEMOGLOBIN 29.6 pg (28.0-32.0); MEAN CORPUSCULAR VOLUME 87.4 fL (80.0-94.0); MEAN PLATELET VOLUME 7.1 fl (7.4-10.4); MONOCYTES % 9.5 % (2.0-8.0); NEUTROPHILS % 70.9 % (40.0-76.0); PLATELET 161 x1000/uL (130-400); RED BLOOD CELL COUNT 3.96 mill/uL (4.7-6.1); RED CELL DISTRIBUTION WIDTH 14.7 % (11.6-14.6)
[2020-01-26 15:34] LABS: CHLORIDE 98 mEq/L (98-107)
[2020-01-26 15:37] LABS: PROTHROMBIN TIME 11.3 sec (9.6-11.0)
[2020-01-26 16:14] VITALS: BP 180/78
== END 2020-01-26 16:17 | disposition home or self-care (01) ==
LOC: ER 14:35
DX: T82.838A Hemorrhage due to vascular prosthetic devices, implants and grafts, initial encounter (principal); E11.22 Type 2 diabetes mellitus with diabetic chronic kidney disease; I12.0 Hypertensive chronic kidney disease with stage 5 chronic kidney disease or end stage renal disease; N18.6 End stage renal disease; Z79.4 Long term (current) use of insulin; Z99.2 Dependence on renal dialysis; Y84.1 Kidney dialysis as the cause of abnormal reaction of the patient, or of later complication, without mention of misadventure at the time of the procedure; Y92.018 Other place in single-family (private) house as the place of occurrence of the external cause
CPT/HCPCS: 36415; 80053; 85025; 99283

== ENCOUNTER 2020-04-01 09:47 | Inpatient (IN) | payer MEDICARE, MEDICAID ==
[~2020-04-01] VITALS: Ht 165.1 cm; Wt 71.7 kg
[2020-04-01] MEDS ORDERED: ACETAMINOPHEN 325MG TABLET PO STA (10:46)
[2020-04-01 11:04] LABS: BASOPHILS % 1.3 % (0.0-2.0); EOSINOPHILS % 6.1 % (0.0-5.0); HEMATOCRIT. 34.2 % (42.0-52.0); HEMOGLOBIN. 11.7 g/dL (14.0-18.0); LYMPHOCYTES % 13.8 % (20.0-50.0); MEAN CORPUSCULAR HEMOGLOBIN 29.5 pg (28.0-32.0); MEAN CORPUSCULAR VOLUME 86.5 fL (80.0-94.0); MEAN PLATELET VOLUME 7.5 fl (7.4-10.4); MONOCYTES % 4.9 % (2.0-8.0); NEUTROPHILS % 73.9 % (40.0-76.0); PLATELET 151 x1000/uL (130-400); RED BLOOD CELL COUNT 3.95 mill/uL (4.7-6.1); RED CELL DISTRIBUTION WIDTH 14.7 % (11.6-14.6)
[2020-04-01 11:26] LABS: CHLORIDE 93 mEq/L (98-107)
[2020-04-01] MEDS ORDERED: HYDRALAZINE 20MG/ML VIAL IV PRN ×2 (13:00→18:15)
[2020-04-01] MEDS: AMLODIPINE 10MG TABLET PO SCH (13:00)
[2020-04-01] MEDS: LISINOPRIL 20MG TABLET PO SCH (13:00)
[2020-04-01] MEDS ORDERED: ONDANSETRON HCL 4MG/2ML INJ IV PRN ×2 (13:00→18:15)
[2020-04-01] MEDS ORDERED: CEFTRIAXONE 1 G PREMIX 50 ML IV ONE (13:30)
[2020-04-01] MEDS ORDERED: AZITHROMYCIN 500 MG in DEXT 5% WATER 250 ML IV SCH (13:30)
[2020-04-01] MEDS ORDERED: MAGNESIUM/ALUMINUM HYDROXIDE/SIMETHICONE 30ML UDC PO PRN (18:15)
[2020-04-01] MEDS ORDERED: DOCUSATE SODIUM 100MG CAPSULE PO PRN (18:15)
[2020-04-01] MEDS ORDERED: LORAZEPAM 2MG/ML CPJ IV PRN (18:15)
[2020-04-01] MEDS ORDERED: MORPHINE SULFATE 2 MG/ML CPJ (NOT FOR IM USE) IV PRN (18:15)
[2020-04-01] MEDS ORDERED: CLONIDINE 0.1MG TABLET PO PRN (18:15)
[2020-04-01] MEDS ORDERED: GUAIFENESIN 200MG/10ML SUGAR FREE UDC PO PRN (18:15)
[2020-04-01] MEDS ORDERED: DIPHENHYDRAMINE 50MG/ML VIAL IV PRN (18:15)
[2020-04-01] MEDS ORDERED: HYDROCODONE/ACETAMINOPHEN 10/325MG TABLET PO PRN (18:15)
[2020-04-01] MEDS ORDERED: ACETAMINOPHEN 325MG TABLET PO PRN (18:15)
[2020-04-01] MEDS ORDERED: DEXTROSE 50% WATER 50ML SYRINGE IV PRN (18:15)
[2020-04-01] MEDS ORDERED: ENOXAPARIN 40MG/0.4ML SYR SUBCUT SCH (18:30)
[2020-04-01] MEDS ORDERED: CEFTRIAXONE 1 G PREMIX 50 ML IV SCH (19:30)
[2020-04-01 20:00] VITALS: BP 148/72
[2020-04-01 21:00] VITALS: BP 130/62
[2020-04-01] MEDS: INSULIN LISPRO 100 UNITS/ML SUBCUT SCH ×2 (21:00→22:33)
[2020-04-01] MEDS: BLOOD SUGAR DIAGNOSTIC STRIP TEST SCH (21:00)
[2020-04-01] MEDS: SODIUM CHLORIDE 0.9% INJ 3ML FLUSH IVF SCH (22:26)
[2020-04-01] MEDS ORDERED: CLOP75TA4 PO (23:24)
[2020-04-02] VITALS (7 sets, daily range): BP systolic 119–182; BP diastolic 54–85
[2020-04-02] MEDS: SODIUM CHLORIDE 0.9% INJ 3ML FLUSH IVF SCH ×3 (07:04→20:41)
[2020-04-02] MEDS: BLOOD SUGAR DIAGNOSTIC STRIP TEST SCH ×4 (07:04→20:41)
[2020-04-02 07:26] LABS: BASOPHILS % 1.7 % (0.0-2.0); EOSINOPHILS % 5.6 % (0.0-5.0); HEMATOCRIT. 31.3 % (42.0-52.0); HEMOGLOBIN. 10.5 g/dL (14.0-18.0); MEAN CORPUSCULAR HEMOGLOBIN 29.3 pg (28.0-32.0); MEAN CORPUSCULAR VOLUME 87.1 fL (80.0-94.0); MEAN PLATELET VOLUME 7.2 fl (7.4-10.4); MONOCYTES % 6.5 % (2.0-8.0); NEUTROPHILS % 70.2 % (40.0-76.0); PLATELET 146 x1000/uL (130-400); RED CELL DISTRIBUTION WIDTH 14.6 % (11.6-14.6)
[2020-04-02 07:33] LABS: CHLORIDE 95 mEq/L (98-107)
[2020-04-02] MEDS: INSULIN LISPRO 100 UNITS/ML SUBCUT SCH ×4 (07:36→21:00)
[2020-04-02] MEDS: AMLODIPINE 10MG TABLET PO SCH (08:35)
[2020-04-02] MEDS: LISINOPRIL 20MG TABLET PO SCH (08:35)
[2020-04-02 09:45] LABS: T4 FREE 1.41 ng/dL (0.76-1.46)
[2020-04-02] MEDS: CEFTRIAXONE 1,000 MG in DEXTROSE 5% WATER 50 ML IV SCH (12:39)
[2020-04-02] MEDS ORDERED: AZITHROMYCIN 500 MG in DEXT 5% WATER 250 ML IV SCH (13:00)
[2020-04-02] MEDS: AZITHROMYCIN 500 MG in DEXT 5% WATER 250 ML IV SCH (13:36)
[2020-04-02] MEDS: ENOXAPARIN 30MG/0.3ML SYR SUBCUT SCH (20:41)
[2020-04-02 23:52] LABS: CREATINE KINASE MB FRACTION 2.8 ng/mL (0.5-3.6)
[2020-04-03] VITALS: BP 130/61
[2020-04-03] MEDS: INSULIN LISPRO 100 UNITS/ML SUBCUT SCH ×4 (05:45→20:57)
[2020-04-03] MEDS: BLOOD SUGAR DIAGNOSTIC STRIP TEST SCH ×4 (05:45→20:49)
[2020-04-03 06:00] VITALS: BP 157/80
[2020-04-03] MEDS: SODIUM CHLORIDE 0.9% INJ 3ML FLUSH IVF SCH ×2 (06:30→14:00)
[2020-04-03 07:08] LABS: CREATINE KINASE MB FRACTION 2.8 ng/mL (0.5-3.6)
[2020-04-03 07:23] LABS: BASOPHILS % 1.4 % (0.0-2.0); EOSINOPHILS % 9.7 % (0.0-5.0); HEMATOCRIT. 30.4 % (42.0-52.0); HEMOGLOBIN. 10.3 g/dL (14.0-18.0); LYMPHOCYTES % 18.9 % (20.0-50.0); MEAN CORPUSCULAR HEMOGLOBIN 29.4 pg (28.0-32.0); MEAN CORPUSCULAR VOLUME 86.7 fL (80.0-94.0); MEAN PLATELET VOLUME 7.7 fl (7.4-10.4); MONOCYTES % 8.4 % (2.0-8.0); NEUTROPHILS % 61.6 % (40.0-76.0); PLATELET 135 x1000/uL (130-400); RED CELL DISTRIBUTION WIDTH 14.6 % (11.6-14.6)
[2020-04-03 08:00] VITALS: BP 167/84
[2020-04-03] MEDS: AMLODIPINE 10MG TABLET PO SCH ×2 (09:00→13:06)
[2020-04-03] MEDS: LISINOPRIL 20MG TABLET PO SCH ×2 (09:00→13:01)
[2020-04-03] MEDS: AZITHROMYCIN 500 MG in DEXT 5% WATER 250 ML IV SCH (13:23)
[2020-04-03] MEDS: CEFTRIAXONE 1,000 MG in DEXTROSE 5% WATER 50 ML IV SCH (13:24)
[2020-04-03 16:00] VITALS: BP 156/73
[2020-04-03 20:24] VITALS: BP 134/62
[2020-04-03] MEDS: ENOXAPARIN 30MG/0.3ML SYR SUBCUT SCH (20:33)
[2020-04-04] VITALS: BP 150/80
[2020-04-04 04:00] VITALS: BP 155/77
[2020-04-04] MEDS: BLOOD SUGAR DIAGNOSTIC STRIP TEST SCH (05:40)
[2020-04-04] MEDS: INSULIN LISPRO 100 UNITS/ML SUBCUT SCH (05:40)
[2020-04-04] MEDS: SODIUM CHLORIDE 0.9% INJ 3ML FLUSH IVF SCH (06:11)
[2020-04-04 13:17] VITALS: BP 167/79
[2020-04-05] MEDS ORDERED: AZITHROMYCIN 500 MG TABLET PO SCH (09:00)
== END 2020-04-04 14:34 | disposition home or self-care (01) | DRG 291 ==
LOC: ER 09:47 → 7WST 13:29 → EDBEDREQSVC 15:16 → ENRESERV 19:17 → 6WST 04-02 21:50
PROVIDERS: ADMIT Internal Medicine; ATTEND Internal Medicine
PROC: 5A1D70Z Performance of Urinary Filtration, Intermittent, Less than 6 Hours Per Day (ICD-10-PCS; principal; 2020-04-03)
DX: I13.2 Hypertensive heart and chronic kidney disease with heart failure and with stage 5 chronic kidney disease, or end stage renal disease (principal); J18.9 Pneumonia, unspecified organism; J96.01 Acute respiratory failure with hypoxia; N18.6 End stage renal disease; I50.31 Acute diastolic (congestive) heart failure; E87.1 Hypo-osmolality and hyponatremia; J44.0 Chronic obstructive pulmonary disease with (acute) lower respiratory infection; E87.6 Hypokalemia; K52.9 Noninfective gastroenteritis and colitis, unspecified; Z20.828 Contact with and (suspected) exposure to other viral communicable diseases; E11.22 Type 2 diabetes mellitus with diabetic chronic kidney disease; I25.10 Atherosclerotic heart disease of native coronary artery without angina pectoris; D64.9 Anemia, unspecified; E78.5 Hyperlipidemia, unspecified; I27.20 Pulmonary hypertension, unspecified; Z79.02 Long term (current) use of antithrombotics/antiplatelets; Z99.2 Dependence on renal dialysis; Z79.4 Long term (current) use of insulin; Z79.899 Other long term (current) drug therapy; Z95.5 Presence of coronary angioplasty implant and graft
CPT/HCPCS: 36415; 71045; 80048; 80053; 80061; 82550; 82553; 82962; 83036; 83880; 84439; 84443; 84484; 85025; 85379; 87635; 93005; 93306; 93970; 96365; 99285; J0360; J0456; J0696; J1650; J1815; J2405; J7060

== ENCOUNTER 2020-05-23 10:30 | Emergency (ER) | payer MEDICARE, MEDICAID ==
[~2020-05-23] VITALS: Ht 165.1 cm; Wt 69.0 kg
[~2020-05-23 10:30] MED LIST changes: +CLOP75TA4 PO; -LISI-604 PO
[2020-05-23 12:07] LABS: BASOPHILS % 1.2 % (0.0-2.0); EOSINOPHILS % 4.2 % (0.0-5.0); HEMATOCRIT. 29.4 % (42.0-52.0); HEMOGLOBIN. 9.7 g/dL (14.0-18.0); LYMPHOCYTES % 19.9 % (20.0-50.0); MEAN CORPUSCULAR HEMOGLOBIN 29.3 pg (28.0-32.0); MEAN CORPUSCULAR VOLUME 88.5 fL (80.0-94.0); MEAN PLATELET VOLUME 7.7 fl (7.4-10.4); MONOCYTES % 6.2 % (2.0-8.0); NEUTROPHILS % 68.5 % (40.0-76.0); PLATELET 131 x1000/uL (130-400); RED BLOOD CELL COUNT 3.32 mill/uL (4.7-6.1); RED CELL DISTRIBUTION WIDTH 14.4 % (11.6-14.6)
[2020-05-23 12:09] LABS: INR 1.1; PARTIAL THROMBOPLASTIN TIME 29.5 sec (23.4-31.0); PROTHROMBIN TIME 11.4 sec (9.6-11.0)
[2020-05-23 14:00] VITALS: BP 159/80
== END 2020-05-23 17:27 | disposition home or self-care (01) ==
LOC: ER 11:20
DX: L76.22 Postprocedural hemorrhage of skin and subcutaneous tissue following other procedure (principal); E11.22 Type 2 diabetes mellitus with diabetic chronic kidney disease; I12.0 Hypertensive chronic kidney disease with stage 5 chronic kidney disease or end stage renal disease; N18.6 End stage renal disease; Z98.890 Other specified postprocedural states; Z79.899 Other long term (current) drug therapy
CPT/HCPCS: 36415; 85025; 86850; 86900; 99283

== ENCOUNTER 2021-02-20 04:44 | Inpatient (IN) | payer MEDICARE, MEDICAID ==
[~2021-02-20] VITALS: Ht 165.1 cm; Wt 76.7 kg
[~2021-02-20 04:44] MED LIST changes: +CLOP-31 PO; -CLOP75TA4 PO
[2021-02-20 05:38] LABS: EOSINOPHILS % 4.1 % (0.0-5.0); HEMATOCRIT. 36.1 % (42.0-52.0); HEMOGLOBIN. 11.7 g/dL (14.0-18.0); LYMPHOCYTES % 13.6 % (20.0-50.0); MEAN CORPUSCULAR HEMOGLOBIN 28.8 pg (28.0-32.0); MEAN CORPUSCULAR VOLUME 88.8 fL (80.0-94.0); MEAN PLATELET VOLUME 6.9 fl (7.4-10.4); MONOCYTES % 5.8 % (2.0-8.0); NEUTROPHILS % 75.5 % (40.0-76.0); PLATELET 264 x1000/uL (130-400); RED BLOOD CELL COUNT 4.07 mill/uL (4.7-6.1); RED CELL DISTRIBUTION WIDTH 15.4 % (11.6-14.6)
[2021-02-20 05:45] LABS: CHLORIDE 98 mEq/L (98-107)
[2021-02-20] MEDS ORDERED: FUROSEMIDE 100MG/10ML VIAL IV STA (05:48)
[2021-02-20] MEDS ORDERED: INSULIN REGULAR (HUMULIN R) 300UNITS/3ML VIAL IV ONE (06:00)
[2021-02-20] MEDS ORDERED: SODIUM BICARBONATE 8.4% 1 MEQ/ML 50ML SYR IV ONE (06:00)
[2021-02-20] MEDS ORDERED: DEXTROSE 50% WATER 50ML SYRINGE IV ONE (06:00)
[2021-02-20] MEDS ORDERED: ALBUTEROL (0.083%) 2.5MG/3ML NEB HHN ONE (06:00)
[2021-02-20] MEDS ORDERED: CALCIUM CHLORIDE 1GM/10ML SYR IV ONE (06:00)
[2021-02-20] MEDS ORDERED: SODIUM POLYSTYRENE SULFONATE 15 G/60 ML BOT PO ONE (07:00)
[2021-02-20] MEDS ORDERED: HYDROCODONE/ACETAMINOPHEN 5/325MG TABLET PO PRN (07:45)
[2021-02-20] MEDS ORDERED: ACETAMINOPHEN 325MG TABLET PO PRN (07:45)
[2021-02-20] MEDS ORDERED: MAGNESIUM/ALUMINUM HYDROXIDE/SIMETHICONE 30ML UDC PO PRN (07:45)
[2021-02-20] MEDS ORDERED: GUAIFENESIN 200MG/10ML SUGAR FREE UDC PO PRN (07:45)
[2021-02-20] MEDS ORDERED: DIPHENHYDRAMINE 50MG/ML VIAL IV PRN (07:45)
[2021-02-20] MEDS ORDERED: DOCUSATE SODIUM 100MG CAPSULE PO PRN (07:45)
[2021-02-20] MEDS ORDERED: ONDANSETRON HCL 4MG/2ML INJ IV PRN (07:45)
[2021-02-20 11:35] VITALS: BP 168/72
[2021-02-20 12:00] VITALS: BP 159/80
[2021-02-20 14:39] LABS: HEPATITIS B SURFACE ANTIGEN NEGATIVE
[2021-02-20 15:09] LABS: HEPATITIS A AB IGM NEGATIVE (NEGATIVE)
[2021-02-20 16:00] VITALS: BP 150/74
[2021-02-20] MEDS: CLOPIDOGREL 75MG TABLET PO SCH (17:57)
[2021-02-20] MEDS: AMLODIPINE 10MG TABLET PO SCH (17:57)
[2021-02-20] MEDS ORDERED: DEXTROSE 50% WATER 50ML SYRINGE IV PRN (19:00)
[2021-02-20 20:00] VITALS: BP 128/53
[2021-02-20] MEDS: BLOOD SUGAR DIAGNOSTIC STRIP TEST SCH (20:46)
[2021-02-20] MEDS: ATORVASTATIN CALCIUM 20MG TABLET PO SCH (21:07)
[2021-02-20] MEDS: INSULIN LISPRO 100 UNITS/ML SUBCUT SCH (21:07)
[2021-02-20] MEDS: INSULIN GLARGINE UD 100 UNITS/ML SYR SUBCUT SCH ×2 (22:00→23:53)
[2021-02-21] VITALS: BP 112/50
[2021-02-21 04:00] VITALS: BP 141/72
[2021-02-21] MEDS: INSULIN LISPRO 100 UNITS/ML SUBCUT SCH ×4 (06:04→21:00)
[2021-02-21] MEDS: BLOOD SUGAR DIAGNOSTIC STRIP TEST SCH ×4 (06:04→20:52)
[2021-02-21 06:22] LABS: BASOPHILS % 1.2 % (0.0-2.0); EOSINOPHILS % 4.7 % (0.0-5.0); LYMPHOCYTES % 16.8 % (20.0-50.0); MEAN CORPUSCULAR HEMOGLOBIN 29.4 pg (28.0-32.0); MEAN CORPUSCULAR VOLUME 88.3 fL (80.0-94.0); MONOCYTES % 7.6 % (2.0-8.0); NEUTROPHILS % 69.7 % (40.0-76.0); PLATELET 196 x1000/uL (130-400)
[2021-02-21 06:35] LABS: CHLORIDE 100 mEq/L (98-107)
[2021-02-21 08:00] VITALS: BP 148/66
[2021-02-21] MEDS: AMLODIPINE 10MG TABLET PO SCH (09:14)
[2021-02-21] MEDS: CLOPIDOGREL 75MG TABLET PO SCH (09:14)
[2021-02-21 12:00] VITALS: BP 136/68
[2021-02-21 16:00] VITALS: BP 154/68
[2021-02-21 20:00] VITALS: BP 110/71
[2021-02-21] MEDS: ATORVASTATIN CALCIUM 20MG TABLET PO SCH (20:52)
[2021-02-21] MEDS ORDERED: INSULIN GLARGINE UD 100 UNITS/ML SYR SUBCUT SCH (22:00)
[2021-02-22] VITALS (7 sets, daily range): BP systolic 151–170; BP diastolic 71–83
[2021-02-22] MEDS: INSULIN LISPRO 100 UNITS/ML SUBCUT SCH ×4 (06:10→20:00)
[2021-02-22] MEDS: BLOOD SUGAR DIAGNOSTIC STRIP TEST SCH ×4 (06:10→19:52)
[2021-02-22 06:44] LABS: BASOPHILS % 1.4 % (0.0-2.0); HEMATOCRIT. 31.9 % (42.0-52.0); HEMOGLOBIN. 10.7 g/dL (14.0-18.0); LYMPHOCYTES % 20.2 % (20.0-50.0); MEAN CORPUSCULAR HEMOGLOBIN 29.7 pg (28.0-32.0); MEAN CORPUSCULAR VOLUME 88.3 fL (80.0-94.0); MEAN PLATELET VOLUME 6.9 fl (7.4-10.4); MONOCYTES % 9.8 % (2.0-8.0); NEUTROPHILS % 61.6 % (40.0-76.0); PLATELET 224 x1000/uL (130-400); RED BLOOD CELL COUNT 3.62 mill/uL (4.7-6.1); RED CELL DISTRIBUTION WIDTH 14.8 % (11.6-14.6)
[2021-02-22] MEDS: CLOPIDOGREL 75MG TABLET PO SCH (08:42)
[2021-02-22] MEDS: AMLODIPINE 10MG TABLET PO SCH (08:42)
[2021-02-22] MEDS ORDERED: SODIUM POLYSTYRENE SULFONATE 15 G/60 ML BOT PO NR (11:00)
[2021-02-22] MEDS: ATORVASTATIN CALCIUM 20MG TABLET PO SCH (19:52)
[2021-02-22] MEDS: CLONIDINE 0.1MG TABLET PO PRN (20:09)
[2021-02-23] VITALS: BP 133/68
[2021-02-23 04:00] VITALS: BP 149/78
[2021-02-23 06:41] LABS: BASOPHILS % 1.1 % (0.0-2.0); EOSINOPHILS % 7.9 % (0.0-5.0); HEMATOCRIT. 29.6 % (42.0-52.0); LYMPHOCYTES % 17.1 % (20.0-50.0); MEAN CORPUSCULAR HEMOGLOBIN 29.5 pg (28.0-32.0); MEAN CORPUSCULAR VOLUME 87.6 fL (80.0-94.0); MEAN PLATELET VOLUME 6.8 fl (7.4-10.4); MONOCYTES % 7.9 % (2.0-8.0); PLATELET 206 x1000/uL (130-400); RED BLOOD CELL COUNT 3.38 mill/uL (4.7-6.1); RED CELL DISTRIBUTION WIDTH 14.2 % (11.6-14.6)
[2021-02-23] MEDS: INSULIN LISPRO 100 UNITS/ML SUBCUT SCH ×4 (06:43→20:58)
[2021-02-23] MEDS: BLOOD SUGAR DIAGNOSTIC STRIP TEST SCH ×4 (06:43→20:59)
[2021-02-23 08:00] VITALS: BP 161/72
[2021-02-23] MEDS: CLOPIDOGREL 75MG TABLET PO SCH (08:51)
[2021-02-23] MEDS: AMLODIPINE 10MG TABLET PO SCH (08:51)
[2021-02-23 12:00] VITALS: BP 167/86
[2021-02-23 15:49] VITALS: BP 159/78
[2021-02-23 17:10] LABS: BASOPHILS % 1.9 % (0.0-2.0); EOSINOPHILS % 6.5 % (0.0-5.0); HEMATOCRIT. 29.1 % (42.0-52.0); HEMOGLOBIN. 10.3 g/dL (14.0-18.0); LYMPHOCYTES % 15.1 % (20.0-50.0); MEAN CORPUSCULAR HEMOGLOBIN 30.7 pg (28.0-32.0); MEAN CORPUSCULAR VOLUME 86.9 fL (80.0-94.0); MEAN PLATELET VOLUME 6.7 fl (7.4-10.4); MONOCYTES % 8.4 % (2.0-8.0); NEUTROPHILS % 68.1 % (40.0-76.0); PLATELET 213 x1000/uL (130-400); RED BLOOD CELL COUNT 3.35 mill/uL (4.7-6.1); RED CELL DISTRIBUTION WIDTH 14.7 % (11.6-14.6)
[2021-02-23 20:00] VITALS: BP 154/78
[2021-02-23] MEDS: ATORVASTATIN CALCIUM 20MG TABLET PO SCH (20:58)
[2021-02-24] VITALS: BP 165/78
[2021-02-24] MEDS: CLONIDINE 0.1MG TABLET PO PRN (00:20)
[2021-02-24 04:00] VITALS: BP 158/80
[2021-02-24 06:14] LABS: BASOPHILS % 1.3 % (0.0-2.0); EOSINOPHILS % 5.8 % (0.0-5.0); HEMATOCRIT. 30.1 % (42.0-52.0); LYMPHOCYTES % 15.6 % (20.0-50.0); MEAN CORPUSCULAR HEMOGLOBIN 29.1 pg (28.0-32.0); MEAN CORPUSCULAR VOLUME 87.2 fL (80.0-94.0); MEAN PLATELET VOLUME 6.9 fl (7.4-10.4); MONOCYTES % 7.5 % (2.0-8.0); NEUTROPHILS % 69.8 % (40.0-76.0); PLATELET 201 x1000/uL (130-400); RED BLOOD CELL COUNT 3.45 mill/uL (4.7-6.1); RED CELL DISTRIBUTION WIDTH 14.3 % (11.6-14.6)
[2021-02-24] MEDS: INSULIN LISPRO 100 UNITS/ML SUBCUT SCH ×2 (06:20→11:58)
[2021-02-24] MEDS: BLOOD SUGAR DIAGNOSTIC STRIP TEST SCH ×2 (06:20→11:58)
[2021-02-24 08:00] VITALS: BP 160/75
[2021-02-24] MEDS: CLOPIDOGREL 75MG TABLET PO SCH (08:27)
[2021-02-24] MEDS: AMLODIPINE 10MG TABLET PO SCH (08:27)
[2021-02-24 11:52] VITALS: BP 155/76
[2021-02-24 13:01] VITALS: BP 155/76
== END 2021-02-24 15:30 | disposition home or self-care (01) | DRG 291 ==
LOC: ER 04:44 → 5WST 06:52 → ENRESERV 08:40
PROVIDERS: ADMIT Hospitalist; ATTEND Hospitalist
PROC: 5A1D70Z Performance of Urinary Filtration, Intermittent, Less than 6 Hours Per Day (ICD-10-PCS; principal; 2021-02-20)
PROC: 5A1D70Z Performance of Urinary Filtration, Intermittent, Less than 6 Hours Per Day (ICD-10-PCS; 2021-02-21)
PROC: 5A1D70Z Performance of Urinary Filtration, Intermittent, Less than 6 Hours Per Day (ICD-10-PCS; 2021-02-23)
PROC: 5A1D70Z Performance of Urinary Filtration, Intermittent, Less than 6 Hours Per Day (ICD-10-PCS; 2021-02-24)
DX: I13.2 Hypertensive heart and chronic kidney disease with heart failure and with stage 5 chronic kidney disease, or end stage renal disease (principal); I50.33 Acute on chronic diastolic (congestive) heart failure; N18.6 End stage renal disease; E87.5 Hyperkalemia; E11.51 Type 2 diabetes mellitus with diabetic peripheral angiopathy without gangrene; D64.9 Anemia, unspecified; E11.22 Type 2 diabetes mellitus with diabetic chronic kidney disease; E78.5 Hyperlipidemia, unspecified; Z99.2 Dependence on renal dialysis; Z79.4 Long term (current) use of insulin; Z79.899 Other long term (current) drug therapy
CPT/HCPCS: 36415; 71045; 80048; 80053; 82962; 83036; 83880; 84484; 85025; 86705; 86709; 86803; 87340; 93005; 94640; 94644; 99291; C1893; J1815; J1940; J2405; J3490

== ENCOUNTER 2021-08-17 18:31 | Emergency (ER) | payer MEDICARE, MEDICAID ==
[~2021-08-17] VITALS: Ht 167.6 cm; Wt 75.0 kg
[2021-08-17 18:59] VITALS: BP 192/75
== END 2021-08-18 00:54 | disposition left against medical advice (07) ==
LOC: ER 18:31
DX: R51.9 Headache, unspecified (principal); R06.02 Shortness of breath; R11.2 Nausea with vomiting, unspecified; R10.9 Unspecified abdominal pain; R07.9 Chest pain, unspecified; R19.7 Diarrhea, unspecified; Z53.21 Procedure and treatment not carried out due to patient leaving prior to being seen by health care provider

== ENCOUNTER → 2021-10-28 | Day surgery (SDC) | payer MEDICARE, MEDICAID ==
[~2021-10-28] MED LIST changes: +LIDOCAINE HCL/PF 1% 10 MG/ML 5ML VIAL ONE; +PANT40TA51 MT; +PROT40 PO; +SEVE800T8 MT; +SODIUM BICARBONATE 4% (2.4MEQ) 5ML VIAL IV ONE
== END | disposition home or self-care (01) ==
LOC: RAD 09:44
PROVIDERS: ATTEND Internal Medicine Gastroenterology
DX: R18.8 Other ascites (principal); R10.9 Unspecified abdominal pain; E11.9 Type 2 diabetes mellitus without complications; I10 Essential (primary) hypertension; E78.5 Hyperlipidemia, unspecified; K21.9 Gastro-esophageal reflux disease without esophagitis; Z79.4 Long term (current) use of insulin; Z79.899 Other long term (current) drug therapy; Z98.890 Other specified postprocedural states; Z82.49 Family history of ischemic heart disease and other diseases of the circulatory system
CPT/HCPCS: 49083; 82040; 84157; 84478; 87070; 87116; 87205; 89050; J3490

== ENCOUNTER → 2022-01-28 | Day surgery (SDC) | payer MEDICARE, MEDICAID ==
[~2022-01-28] VITALS: Ht 165.1 cm; Wt 72.0 kg
[~2022-01-28] MED LIST changes: +ACETAMINOPHEN 325MG TABLET PO PRN; +ASPI-1497 PO; +ASPI-986 MT; +ATROPINE SULFATE 1MG/10ML SYR IV PRN; +FENTANYL CITRATE/PF 50MCG/ML 2ML VIAL ONE; +HEPARIN 1000 UNITS/ML 10ML ONE; +HYDR-4133 PO; +IODIXANOL 320MG/ML 100 ML BOTTLE IV ONE; +LISI10TA26 PO; +MIDAZOLAM HCL 2 MG/2 ML VIAL ONE; +ONDANSETRON HCL 4MG/2ML INJ IV ONE; +ONDANSETRON HCL 4MG/2ML INJ IV PRN; +POTA-202 MT; -SODIUM BICARBONATE 4% (2.4MEQ) 5ML VIAL IV ONE
[2022-01-28 14:12] LABS: BASOPHILS % 1.3 % (0.0-2.0); EOSINOPHILS % 8.1 % (0.0-5.0); HEMATOCRIT. 28.4 % (42.0-52.0); HEMOGLOBIN. 9.3 g/dL (14.0-18.0); LYMPHOCYTES % 16.9 % (20.0-50.0); MEAN CORPUSCULAR HEMOGLOBIN 29.6 pg (28.0-32.0); MEAN PLATELET VOLUME 6.7 fl (7.4-10.4); MONOCYTES % 8.5 % (2.0-8.0); NEUTROPHILS % 65.2 % (40.0-76.0); PLATELET 157 x1000/uL (130-400); RED BLOOD CELL COUNT 3.15 mill/uL (4.7-6.1); RED CELL DISTRIBUTION WIDTH 13.5 % (11.6-14.6)
[2022-01-28 14:20] LABS: CHLORIDE 95 mEq/L (98-107)
[2022-01-28 14:22] LABS: INR 1.1; PARTIAL THROMBOPLASTIN TIME 31.9 sec (23.4-31.0); PROTHROMBIN TIME 11.8 sec (9.6-11.0)
== END | disposition home or self-care (01) ==
LOC: CCL 08:41
PROVIDERS: ATTEND Specialist
DX: I25.119 Atherosclerotic heart disease of native coronary artery with unspecified angina pectoris (principal); I48.0 Paroxysmal atrial fibrillation; E78.5 Hyperlipidemia, unspecified; I12.0 Hypertensive chronic kidney disease with stage 5 chronic kidney disease or end stage renal disease; N18.6 End stage renal disease; E11.22 Type 2 diabetes mellitus with diabetic chronic kidney disease; K21.9 Gastro-esophageal reflux disease without esophagitis; I08.3 Combined rheumatic disorders of mitral, aortic and tricuspid valves; Z99.2 Dependence on renal dialysis; Z79.899 Other long term (current) drug therapy; Z98.890 Other specified postprocedural states; Z20.822 Contact with and (suspected) exposure to COVID-19
CPT/HCPCS: 36415; 71045; 80053; 83735; 85025; 85610; 85730; 86850; 86900; 86901; 87426; 93458; 93880; 93970; C1769; C1887; C1893; C9803; J1644; J2250; J2405; J3010; J3490; Q9967; 99152; 99153; G0500

== ENCOUNTER 2022-02-03 08:33 | Inpatient (IN) | payer MEDICARE, MEDICAID ==
[~2022-02-03] VITALS: Ht 165.1 cm; Wt 67.8 kg
[2022-02-03] VITALS (52 sets, daily range): BP systolic 12–147; BP diastolic 0–86
[~2022-02-03 08:33] MED LIST changes: -ACETAMINOPHEN 325MG TABLET PO PRN; -ASPI-986 MT; -ATROPINE SULFATE 1MG/10ML SYR IV PRN; +BACITRACIN 15GM TUBE TOP ONE; +CEFAZOLIN 2,000 MG in DEXT 5% WATER 100 ML IV NR; +DEL NIDO ELECTROLYTE-S(PH 7.4) 1,000 ML IV NR; +DOPAMINE 400MG/250ML PREMIX 250 ML IV ONE; +EPINEPHRINE 5 MG in DEXT 5% WATER 245 ML IV NR; -FENTANYL CITRATE/PF 50MCG/ML 2ML VIAL ONE; -HEPARIN 1000 UNITS/ML 10ML ONE; +HEPARIN 5000 UNITS/ML VIAL ONE; +INSULIN REGULAR (DRIP) 100 UNITS in SODIUM CHLORIDE 0.9% 99 ML IV NR; -IODIXANOL 320MG/ML 100 ML BOTTLE IV ONE; -LIDOCAINE HCL/PF 1% 10 MG/ML 5ML VIAL ONE; -LISI10TA26 PO; -MIDAZOLAM HCL 2 MG/2 ML VIAL ONE; +NICARDIPINE 40MG/200ML PREMIX 200 ML IV ONE; +NOREPINEPHRINE 8 MG in DEXT 5% WATER 242 ML IV NR; -ONDANSETRON HCL 4MG/2ML INJ IV ONE; -ONDANSETRON HCL 4MG/2ML INJ IV PRN; -PANT40TA51 MT; +PAPAVERINE HCL 180MG in SODIUM CHLORIDE 0.9% 24ML IV NR; -POTA-202 MT; +SEVOFLURANE 250 ML LIQUID INH ONE; +SKIN ADHESIVE 0.7 GM EA TOP ONE; +SODIUM CHLORIDE 0.9% 500 ML IV ONE; +THROMBIN (BOVINE) 5000 UNITS/VIAL TOP ONE
[2022-02-03] MEDS ORDERED: ALBUTEROL (0.083%) 2.5MG/3ML NEB ONE (09:00)
[2022-02-03 09:10] LABS: BASOPHILS % 0.9 % (0.0-2.0); HEMATOCRIT. 29.5 % (42.0-52.0); HEMOGLOBIN. 9.8 g/dL (14.0-18.0); MEAN CORPUSCULAR HEMOGLOBIN 29.6 pg (28.0-32.0); MEAN CORPUSCULAR VOLUME 89.3 fL (80.0-94.0); MEAN PLATELET VOLUME 7.2 fl (7.4-10.4); MONOCYTES % 7.4 % (2.0-8.0); NEUTROPHILS % 64.7 % (40.0-76.0); PLATELET 143 x1000/uL (130-400); RED BLOOD CELL COUNT 3.31 mill/uL (4.7-6.1); RED CELL DISTRIBUTION WIDTH 13.6 % (11.6-14.6)
[2022-02-03 09:21] LABS: INR 1.1; PARTIAL THROMBOPLASTIN TIME 29.9 sec (23.4-31.0); PROTHROMBIN TIME 11.6 sec (9.6-11.0)
[2022-02-03] MEDS ORDERED: ONDA4TAB11 PO (09:33)
[2022-02-03] MEDS ORDERED: POLYMYXIN B SULFATE 500000 UNITS/VIAL ONE (12:38)
[2022-02-03] MEDS ORDERED: ROCURONIUM BROMIDE 10MG/ML VIAL 5ML IV ONE (12:55)
[2022-02-03] MEDS ORDERED: HEPARIN 10,000 UNITS/ML VIAL ONE (13:30)
[2022-02-03] MEDS ORDERED: ALBUMIN HUMAN 25GM/100ML (25%) IV ONE (13:30)
[2022-02-03] MEDS ORDERED: MAGNESIUM SULFATE 5GM/10ML VIAL IV ONE (13:30)
[2022-02-03] MEDS ORDERED: CALCIUM CHLORIDE 1GM/10ML SYR IV ONE (13:35)
[2022-02-03] MEDS ORDERED: VANCOMYCIN HCL 1 GM/VIAL ONE (13:52)
[2022-02-03] MEDS ORDERED: FENTANYL CITRATE/PF 50MCG/ML 2ML VIAL ONE (13:53)
[2022-02-03] MEDS ORDERED: DEXAMETHASONE 4MG/ML 1ML VIAL ONE (14:17)
[2022-02-03] MEDS ORDERED: CEFAZOLIN SODIUM 1000MG/VIAL ONE (14:17)
[2022-02-03] MEDS ORDERED: HEPARIN 1000 UNITS/ML 10ML ONE (14:39)
[2022-02-03] MEDS ORDERED: KCL 10MEQ/50ML PREMIX 100 ML IV PRN ×2 (15:30→17:15)
[2022-02-03] MEDS ORDERED: MAGNESIUM 1 G PREMIX 100 ML IV PRN ×3 (15:30→17:15)
[2022-02-03] MEDS ORDERED: VASOPRESSIN 20 UNIT/ML 1ML ONE (15:30)
[2022-02-03] MEDS ORDERED: KCL 10MEQ/50ML PREMIX 150 ML IV PRN ×2 (15:30→17:15)
[2022-02-03] MEDS ORDERED: MAGNESIUM SULFATE 3 GM in DEXT 5% WATER 100 ML IV PRN ×2 (15:30→16:45)
[2022-02-03] MEDS ORDERED: DEXTROSE 50% WATER 50ML SYRINGE IV PRN (15:30)
[2022-02-03] MEDS ORDERED: KCL 10MEQ/50ML PREMIX 200 ML IV PRN ×2 (15:30→17:15)
[2022-02-03] MEDS ORDERED: MAGNESIUM 2 G PREMIX 50 ML IV PRN ×3 (15:30→17:15)
[2022-02-03] MEDS ORDERED: AMIODARONE HCL 50MG/ML 3ML VIAL IV ONE (15:37)
[2022-02-03] MEDS ORDERED: SODIUM BICARBONATE 8.4% 1 MEQ/ML 50ML SYR IV ONE (15:38)
[2022-02-03] MEDS ORDERED: PROTAMINE SULFATE 10MG/ML VIAL 25ML IV ONE (15:52)
[2022-02-03] MEDS: BLOOD SUGAR DIAGNOSTIC STRIP TEST SCH ×8 (16:00→23:00)
[2022-02-03] MEDS ORDERED: AMIODARONE HCL 900 MG in DEXT 5% WATER 500 ML IV NR (16:00)
[2022-02-03] MEDS ORDERED: DESMOPRESSIN ACETATE 4MCG/ML AMP ONE (16:18)
[2022-02-03] MEDS ORDERED: AMINOCAPROIC ACID 250 MG/ML 20ML VIAL ONE (16:19)
[2022-02-03] MEDS ORDERED: NEOSTIGMINE METHYLSULFATE 1MG/ML 10 ML VIAL ONE (16:34)
[2022-02-03] MEDS ORDERED: GLYCOPYRROLATE 0.2 MG/ML 2ML VIAL ONE ×2 (16:34→16:35)
[2022-02-03] MEDS ORDERED: CALCIUM CHLORIDE 3,000 MG in DEXT 5% WATER 250 ML IV PRN (16:45)
[2022-02-03] MEDS: CEFAZOLIN 1000MG PREMIX 50 ML IV SCH (16:45)
[2022-02-03] MEDS ORDERED: ALBUMIN HUMAN 12.5G/250ML (5%) IV PRN (16:45)
[2022-02-03] MEDS: MAGNESIUM HYDROXIDE 400MG/5ML 30ML UDC PO SCH ×2 (16:45→21:39)
[2022-02-03] MEDS ORDERED: KETOROLAC 30MG/ML VIAL IV PRN (16:45)
[2022-02-03] MEDS ORDERED: ACETAMINOPHEN WITH CODEINE 300/30MG TABLET PO PRN (16:45)
[2022-02-03] MEDS ORDERED: OXYCODONE HCL/ACETAMINOPHEN 5/325MG TABLET PO PRN (16:45)
[2022-02-03] MEDS ORDERED: CALCIUM CHLORIDE 5,000 MG in DEXT 5% WATER 500 ML IV PRN (16:45)
[2022-02-03] MEDS ORDERED: EPINEPHRINE 5 MG in DEXT 5% WATER 245 ML IV SCH (16:45)
[2022-02-03] MEDS ORDERED: ACETAMINOPHEN 650MG SUPP PR PRN (16:45)
[2022-02-03] MEDS ORDERED: MORPHINE SULFATE 2 MG/ML CPJ (NOT FOR IM USE) IV PRN (16:45)
[2022-02-03] MEDS ORDERED: SODIUM CHLORIDE 0.9% 500 ML IV PRN (16:45)
[2022-02-03] MEDS ORDERED: ALBUMIN HUMAN 25GM/100ML (25%) IV PRN (16:45)
[2022-02-03] MEDS: BACITRACIN 15GM TUBE TOP SCH (17:00)
[2022-02-03] MEDS: DOCUSATE SODIUM 100MG CAPSULE PO SCH (17:00)
[2022-02-03 17:26] LABS: BG BASE EXCESS -0.3 mmol/L (-2.0-2.0); BG CARBOXYHEMOGLOBIN 0.5 % (0.5-1.5); BG DEOXYHEMOGLOBIN 1.6 % (0.0-5.0); BG FRACTION INSPIRED OXYGEN 100; BG HCO3 ACT 25.3 mmol/L (22.0-26.0); BG METHEMOGLOBIN 0.2 % (0.0-1.5); BG OXYGEN SATURATION 98.4 % (92.0-98.5); BG OXYHEMOGLOBIN 97.7 % (94.0-97.0); BG PCO2 46.4 mmHg (35.0-45.0); BG PH 7.355 (7.350-7.450); BG PO2 151.7 mmHg (75.0-100.0); BG SAMPLE SITE ALINE; BG TOTAL HEMOGLOBIN 7.8 g/dL (12.0-18.0); BG VENT MODE MASK - NRB
[2022-02-03] MEDS: DOPAMINE 400MG/250ML PREMIX 250 ML IV SCH (17:50)
[2022-02-03 17:51] LABS: BASOPHILS % 0.4 % (0.0-2.0); EOSINOPHILS % 1.7 % (0.0-5.0); HEMATOCRIT. 21.9 % (42.0-52.0); HEMOGLOBIN. 7.1 g/dL (14.0-18.0); LYMPHOCYTES % 13.2 % (20.0-50.0); MEAN CORPUSCULAR HEMOGLOBIN 29.4 pg (28.0-32.0); MEAN CORPUSCULAR VOLUME 91.3 fL (80.0-94.0); MEAN PLATELET VOLUME 7.4 fl (7.4-10.4); MONOCYTES % 1.7 % (2.0-8.0); PLATELET 136 x1000/uL (130-400); RED CELL DISTRIBUTION WIDTH 13.4 % (11.6-14.6)
[2022-02-03] MEDS: ONDANSETRON HCL 4MG/2ML INJ IV PRN ×2 (17:52→21:38)
[2022-02-03] MEDS: INSULIN REGULAR 100U/100ML PMX 100 ML IV SCH (17:57)
[2022-02-03 18:00] LABS: INR 1.2; PARTIAL THROMBOPLASTIN TIME 25.6 sec (23.4-31.0); PROTHROMBIN TIME 12.3 sec (9.6-11.0)
[2022-02-03] MEDS: DEXT 5%/0.45% NACL 1000ML 1,000 ML IV SCH (18:12)
[2022-02-03] MEDS ORDERED: AMIODARONE HCL 900 MG in DEXT 5% WATER 482 ML IV PRN (18:30)
[2022-02-03] MEDS ORDERED: AMINOCAPROIC ACID 5,000 MG in SODIUM CHLORIDE 0.9% 230 ML IV ONE (19:30)
[2022-02-03] MEDS: ACETAMINOPHEN 325MG TABLET PO PRN (20:57)
[2022-02-03] MEDS: CLOPIDOGREL 75MG TABLET PO SCH (21:38)
[2022-02-03 22:46] LABS: HEPATITIS B SURFACE ANTIGEN NEGATIVE
[2022-02-04] VITALS (89 sets, daily range): BP systolic 47–170; BP diastolic 23–96
[2022-02-04] MEDS: CEFAZOLIN 1000MG PREMIX 50 ML IV SCH ×2 (00:37→08:39)
[2022-02-04] MEDS: MAGNESIUM HYDROXIDE 400MG/5ML 30ML UDC PO SCH ×5 (00:37→16:55)
[2022-02-04] MEDS: BLOOD SUGAR DIAGNOSTIC STRIP TEST SCH ×24 (01:00→23:00)
[2022-02-04 03:24] LABS: HEMATOCRIT. 27.6 % (42.0-52.0); HEMOGLOBIN. 9.5 g/dL (14.0-18.0); MEAN CORPUSCULAR HEMOGLOBIN 30.2 pg (28.0-32.0); MEAN CORPUSCULAR VOLUME 87.6 fL (80.0-94.0); MEAN PLATELET VOLUME 7.4 fl (7.4-10.4); PLATELET 159 x1000/uL (130-400); RED BLOOD CELL COUNT 3.15 mill/uL (4.7-6.1); RED CELL DISTRIBUTION WIDTH 13.4 % (11.6-14.6)
[2022-02-04 03:25] LABS: PHOSPHORUS 2.7 mg/dL (2.5-4.9)
[2022-02-04] MEDS: ACETAMINOPHEN 325MG TABLET PO PRN (04:15)
[2022-02-04 04:25] LABS: INR 1.1; PROTHROMBIN TIME 11.6 sec (9.6-11.0)
[2022-02-04 05:39] LABS: HEMATOCRIT. 27.3 % (42.0-52.0); HEMOGLOBIN. 9.5 g/dL (14.0-18.0); MEAN CORPUSCULAR HEMOGLOBIN 30.4 pg (28.0-32.0); MEAN CORPUSCULAR VOLUME 87.5 fL (80.0-94.0); MEAN PLATELET VOLUME 7.5 fl (7.4-10.4); PLATELET 137 x1000/uL (130-400); RED BLOOD CELL COUNT 3.12 mill/uL (4.7-6.1); RED CELL DISTRIBUTION WIDTH 13.6 % (11.6-14.6)
[2022-02-04 06:19] LABS: PHOSPHORUS 3.7 mg/dL (2.5-4.9)
[2022-02-04 08:15] LABS: PLATELET ESTIMATE NORMAL
[2022-02-04] MEDS: BACITRACIN 15GM TUBE TOP SCH ×2 (09:00→17:47)
[2022-02-04] MEDS: ONDANSETRON HCL 4MG/2ML INJ IV PRN (09:10)
[2022-02-04] MEDS: DOCUSATE SODIUM 100MG CAPSULE PO SCH ×2 (09:25→16:55)
[2022-02-04] MEDS: CLOPIDOGREL 75MG TABLET PO SCH (09:25)
[2022-02-04] MEDS: FAMOTIDINE 20MG/2ML VIAL IV SCH (09:25)
[2022-02-04 11:13] LABS: INR 1.1
[2022-02-04] MEDS: METOCLOPRAMIDE HCL 10MG/2ML VIAL IV SCH ×2 (12:29→20:56)
[2022-02-04] MEDS: DOPAMINE 400MG/250ML PREMIX 250 ML IV SCH (13:08)
[2022-02-04 13:10] LABS: PLATELET ESTIMATE NORMAL
[2022-02-04] MEDS: DEXTROSE 50% WATER 50ML SYRINGE IV PRN ×2 (16:22→21:45)
[2022-02-04] MEDS: DEXT 5%/0.45% NACL 1000ML 1,000 ML IV SCH (18:31)
[2022-02-04] MEDS: INSULIN REGULAR 100U/100ML PMX 100 ML IV SCH (20:36)
[2022-02-04] MEDS ORDERED: CLOPIDOGREL 75MG TABLET PO SCH (21:00)
[2022-02-05] VITALS (58 sets, daily range): BP systolic 78–159; BP diastolic 36–79
[2022-02-05] MEDS: BLOOD SUGAR DIAGNOSTIC STRIP TEST SCH ×9 (01:00→21:09)
[2022-02-05] MEDS: DEXTROSE 50% WATER 50ML SYRINGE IV PRN (04:09)
[2022-02-05 06:31] LABS: BASOPHILS % 0.8 % (0.0-2.0); EOSINOPHILS % 1.2 % (0.0-5.0); HEMOGLOBIN. 9.5 g/dL (14.0-18.0); LYMPHOCYTES % 11.7 % (20.0-50.0); MEAN CORPUSCULAR VOLUME 88.6 fL (80.0-94.0); MEAN PLATELET VOLUME 8.1 fl (7.4-10.4); MONOCYTES % 7.7 % (2.0-8.0); NEUTROPHILS % 78.6 % (40.0-76.0); PLATELET 151 x1000/uL (130-400); RED BLOOD CELL COUNT 3.16 mill/uL (4.7-6.1); RED CELL DISTRIBUTION WIDTH 14.1 % (11.6-14.6)
[2022-02-05 06:44] LABS: PHOSPHORUS 4.6 mg/dL (2.5-4.9)
[2022-02-05] MEDS ORDERED: DEXTROSE 50% WATER 50ML SYRINGE IV PRN (07:30)
[2022-02-05] MEDS: ONDANSETRON HCL 4MG/2ML INJ IV PRN (09:07)
[2022-02-05] MEDS: DOCUSATE SODIUM 100MG CAPSULE PO SCH ×2 (09:07→17:19)
[2022-02-05] MEDS: CLOPIDOGREL 75MG TABLET PO SCH (09:07)
[2022-02-05] MEDS: METOCLOPRAMIDE HCL 10MG/2ML VIAL IV SCH ×2 (09:07→21:09)
[2022-02-05] MEDS: INSULIN LISPRO 100 UNITS/ML SUBCUT SCH ×4 (09:08→21:00)
[2022-02-05] MEDS: BACITRACIN 15GM TUBE TOP SCH ×2 (09:08→17:20)
[2022-02-05] MEDS: FAMOTIDINE 20MG/2ML VIAL IV SCH (09:08)
[2022-02-05] MEDS ORDERED: NALOXONE HCL 0.4MG/ML VIAL IV PRN (12:15)
[2022-02-05] MEDS: IPRATROPIUM/ALBUTEROL 0.5-3(2.5)MG/3ML NEB HHN SCH ×3 (12:35→20:37)
[2022-02-05] MEDS: OXYCODONE HCL/ACETAMINOPHEN 5/325MG TABLET PO PRN (17:15)
[2022-02-05] MEDS ORDERED: MORPHINE SULFATE 4 MG/ML CPJ (NOT FOR IM USE) IV PRN (18:00)
[2022-02-05] MEDS ORDERED: KETOROLAC 15MG/ML VIAL IV PRN (18:00)
[2022-02-06] VITALS (12 sets, daily range): BP systolic 101–147; BP diastolic 58–83
[2022-02-06] MEDS: IPRATROPIUM/ALBUTEROL 0.5-3(2.5)MG/3ML NEB HHN SCH ×6 (00:10→20:50)
[2022-02-06] MEDS: BLOOD SUGAR DIAGNOSTIC STRIP TEST SCH ×4 (07:19→21:01)
[2022-02-06] MEDS: INSULIN LISPRO 100 UNITS/ML SUBCUT SCH ×4 (07:20→21:08)
[2022-02-06 08:22] LABS: BASOPHILS % 0.8 % (0.0-2.0); HEMATOCRIT. 29.9 % (42.0-52.0); HEMOGLOBIN. 9.7 g/dL (14.0-18.0); LYMPHOCYTES % 12.2 % (20.0-50.0); MEAN CORPUSCULAR HEMOGLOBIN 29.9 pg (28.0-32.0); MEAN CORPUSCULAR VOLUME 91.8 fL (80.0-94.0); MEAN PLATELET VOLUME 7.9 fl (7.4-10.4); MONOCYTES % 11.1 % (2.0-8.0); NEUTROPHILS % 73.9 % (40.0-76.0); PLATELET 152 x1000/uL (130-400); RED BLOOD CELL COUNT 3.25 mill/uL (4.7-6.1); RED CELL DISTRIBUTION WIDTH 14.5 % (11.6-14.6)
[2022-02-06 08:50] LABS: PHOSPHORUS 6.7 mg/dL (2.5-4.9)
[2022-02-06] MEDS: BACITRACIN 15GM TUBE TOP SCH ×2 (09:00→18:25)
[2022-02-06] MEDS: FAMOTIDINE 20MG/2ML VIAL IV SCH (09:32)
[2022-02-06] MEDS: DOCUSATE SODIUM 100MG CAPSULE PO SCH ×2 (09:32→18:24)
[2022-02-06] MEDS: CLOPIDOGREL 75MG TABLET PO SCH (09:32)
[2022-02-06] MEDS ORDERED: MINERAL OIL 30ML BOTTLE PO NR (17:00)
[2022-02-06] MEDS: LACTULOSE 20G/30ML UDC PO SCH (18:24)
[2022-02-06] MEDS: ATORVASTATIN CALCIUM 40MG TABLET PO SCH (20:14)
[2022-02-06] MEDS: OXYCODONE HCL/ACETAMINOPHEN 5/325MG TABLET PO PRN (20:15)
[2022-02-07] VITALS (12 sets, daily range): BP systolic 98–135; BP diastolic 42–68
[2022-02-07] MEDS: IPRATROPIUM/ALBUTEROL 0.5-3(2.5)MG/3ML NEB HHN SCH ×6 (00:07→20:22)
[2022-02-07] MEDS: BLOOD SUGAR DIAGNOSTIC STRIP TEST SCH ×4 (05:58→21:12)
[2022-02-07 06:19] LABS: BASOPHILS % 0.5 % (0.0-2.0); EOSINOPHILS % 1.4 % (0.0-5.0); HEMOGLOBIN. 8.8 g/dL (14.0-18.0); LYMPHOCYTES % 9.1 % (20.0-50.0); MEAN CORPUSCULAR HEMOGLOBIN 30.2 pg (28.0-32.0); MEAN CORPUSCULAR VOLUME 89.3 fL (80.0-94.0); MEAN PLATELET VOLUME 7.7 fl (7.4-10.4); PLATELET 161 x1000/uL (130-400); RED BLOOD CELL COUNT 2.92 mill/uL (4.7-6.1); RED CELL DISTRIBUTION WIDTH 13.7 % (11.6-14.6)
[2022-02-07] MEDS: INSULIN LISPRO 100 UNITS/ML SUBCUT SCH ×4 (07:57→21:00)
[2022-02-07] MEDS: FAMOTIDINE 20MG TABLET PO SCH (08:39)
[2022-02-07] MEDS: DOCUSATE SODIUM 100MG CAPSULE PO SCH ×2 (08:39→18:00)
[2022-02-07] MEDS: CLOPIDOGREL 75MG TABLET PO SCH (08:39)
[2022-02-07] MEDS: BACITRACIN 15GM TUBE TOP SCH ×2 (08:40→18:00)
[2022-02-07] MEDS: LACTULOSE 20G/30ML UDC PO SCH ×2 (08:43→18:00)
[2022-02-07] MEDS: ATORVASTATIN CALCIUM 40MG TABLET PO SCH (21:11)
[2022-02-07] MEDS: ONDANSETRON HCL 4MG/2ML INJ IV PRN (21:11)
[2022-02-08] VITALS (13 sets, daily range): BP systolic 105–163; BP diastolic 47–103
[2022-02-08] MEDS: ONDANSETRON HCL 4MG/2ML INJ IV PRN ×3 (04:25→20:34)
[2022-02-08 06:18] LABS: BASOPHILS % 0.5 % (0.0-2.0); EOSINOPHILS % 2.8 % (0.0-5.0); HEMATOCRIT. 27.8 % (42.0-52.0); HEMOGLOBIN. 9.2 g/dL (14.0-18.0); LYMPHOCYTES % 11.2 % (20.0-50.0); MEAN CORPUSCULAR HEMOGLOBIN 30.1 pg (28.0-32.0); MEAN CORPUSCULAR VOLUME 91.2 fL (80.0-94.0); MEAN PLATELET VOLUME 7.4 fl (7.4-10.4); NEUTROPHILS % 72.5 % (40.0-76.0); PLATELET 210 x1000/uL (130-400); RED BLOOD CELL COUNT 3.05 mill/uL (4.7-6.1); RED CELL DISTRIBUTION WIDTH 13.7 % (11.6-14.6)
[2022-02-08] MEDS: BLOOD SUGAR DIAGNOSTIC STRIP TEST SCH ×4 (06:46→20:36)
[2022-02-08] MEDS: IPRATROPIUM/ALBUTEROL 0.5-3(2.5)MG/3ML NEB HHN SCH ×4 (08:00→21:08)
[2022-02-08] MEDS: LACTULOSE 20G/30ML UDC PO SCH ×2 (08:44→17:00)
[2022-02-08] MEDS: DOCUSATE SODIUM 100MG CAPSULE PO SCH ×2 (09:00→17:00)
[2022-02-08] MEDS: FAMOTIDINE 20MG TABLET PO SCH ×2 (09:00→10:00)
[2022-02-08] MEDS: CLOPIDOGREL 75MG TABLET PO SCH (09:59)
[2022-02-08] MEDS: INSULIN LISPRO 100 UNITS/ML SUBCUT SCH ×4 (10:00→20:36)
[2022-02-08] MEDS: BACITRACIN 15GM TUBE TOP SCH ×2 (10:01→17:51)
[2022-02-08] MEDS ORDERED: LIDOCAINE HCL/PF 1% 10 MG/ML 5ML VIAL ONE (14:48)
[2022-02-08] MEDS ORDERED: SODIUM BICARBONATE 4% (2.4MEQ) 5ML VIAL IV ONE (14:48)
[2022-02-08] MEDS: ATORVASTATIN CALCIUM 40MG TABLET PO SCH (20:34)
[2022-02-09] VITALS (13 sets, daily range): BP systolic 88–153; BP diastolic 40–74
[2022-02-09] MEDS: IPRATROPIUM/ALBUTEROL 0.5-3(2.5)MG/3ML NEB HHN SCH ×6 (01:03→21:29)
[2022-02-09 05:54] LABS: BASOPHILS % 0.5 % (0.0-2.0); EOSINOPHILS % 3.1 % (0.0-5.0); LYMPHOCYTES % 12.4 % (20.0-50.0); MEAN PLATELET VOLUME 7.3 fl (7.4-10.4); MONOCYTES % 11.6 % (2.0-8.0); NEUTROPHILS % 72.4 % (40.0-76.0); PLATELET 207 x1000/uL (130-400)
[2022-02-09] MEDS: BLOOD SUGAR DIAGNOSTIC STRIP TEST SCH ×4 (06:55→21:38)
[2022-02-09] MEDS: ONDANSETRON HCL 4MG/2ML INJ IV PRN (08:06)
[2022-02-09] MEDS: DOCUSATE SODIUM 100MG CAPSULE PO SCH ×2 (09:00→17:39)
[2022-02-09] MEDS: LACTULOSE 20G/30ML UDC PO SCH ×2 (09:00→16:54)
[2022-02-09] MEDS: FAMOTIDINE 20MG TABLET PO SCH (09:00)
[2022-02-09] MEDS: CLOPIDOGREL 75MG TABLET PO SCH (09:25)
[2022-02-09] MEDS: BACITRACIN 15GM TUBE TOP SCH ×2 (09:26→17:40)
[2022-02-09] MEDS: INSULIN LISPRO 100 UNITS/ML SUBCUT SCH ×4 (09:58→21:39)
[2022-02-09] MEDS ORDERED: EPOETIN ALFA-EPBX 10,000 UNIT/ML VIAL SUBCUT SCH (21:00)
[2022-02-09] MEDS: ATORVASTATIN CALCIUM 40MG TABLET PO SCH (21:38)
== END 2022-02-09 23:09 | DRG 235 ==
LOC: OR 08:33 → CVICU 08:34 → 5EST 02-05 15:10
PROVIDERS: ADMIT Thoracic Surgery (Cardiothoracic Vascular Surgery); ATTEND Thoracic Surgery (Cardiothoracic Vascular Surgery)
PROC: 02100Z9 Bypass Coronary Artery, One Artery from Left Internal Mammary, Open Approach (ICD-10-PCS; principal; 2022-02-03)
PROC: 021209W Bypass Coronary Artery, Three Arteries from Aorta with Autologous Venous Tissue, Open Approach (ICD-10-PCS; 2022-02-03)
PROC: 06BQ4ZZ Excision of Left Saphenous Vein, Percutaneous Endoscopic Approach (ICD-10-PCS; 2022-02-03)
PROC: 30233K1 Transfusion of Nonautologous Frozen Plasma into Peripheral Vein, Percutaneous Approach (ICD-10-PCS; 2022-02-03)
PROC: 30233N1 Transfusion of Nonautologous Red Blood Cells into Peripheral Vein, Percutaneous Approach (ICD-10-PCS; 2022-02-03)
PROC: 5A1D70Z Performance of Urinary Filtration, Intermittent, Less than 6 Hours Per Day (ICD-10-PCS; 2022-02-03)
PROC: 30233R1 Transfusion of Nonautologous Platelets into Peripheral Vein, Percutaneous Approach (ICD-10-PCS; 2022-02-04)
PROC: 5A1D70Z Performance of Urinary Filtration, Intermittent, Less than 6 Hours Per Day (ICD-10-PCS; 2022-02-04)
PROC: 5A1D70Z Performance of Urinary Filtration, Intermittent, Less than 6 Hours Per Day (ICD-10-PCS; 2022-02-06)
PROC: 0W9G3ZZ Drainage of Peritoneal Cavity, Percutaneous Approach (ICD-10-PCS; 2022-02-08)
PROC: 5A1D70Z Performance of Urinary Filtration, Intermittent, Less than 6 Hours Per Day (ICD-10-PCS; 2022-02-08)
DX: I25.10 Atherosclerotic heart disease of native coronary artery without angina pectoris (principal); N18.6 End stage renal disease; J96.01 Acute respiratory failure with hypoxia; I50.32 Chronic diastolic (congestive) heart failure; I13.2 Hypertensive heart and chronic kidney disease with heart failure and with stage 5 chronic kidney disease, or end stage renal disease; R18.8 Other ascites; I44.7 Left bundle-branch block, unspecified; E11.22 Type 2 diabetes mellitus with diabetic chronic kidney disease; E78.5 Hyperlipidemia, unspecified; I08.3 Combined rheumatic disorders of mitral, aortic and tricuspid valves; K21.9 Gastro-esophageal reflux disease without esophagitis; D64.9 Anemia, unspecified; Z20.822 Contact with and (suspected) exposure to COVID-19; E03.9 Hypothyroidism, unspecified; I48.0 Paroxysmal atrial fibrillation; T41.45XA Adverse effect of unspecified anesthetic, initial encounter; Y92.238 Other place in hospital as the place of occurrence of the external cause; Z79.02 Long term (current) use of antithrombotics/antiplatelets; Z79.4 Long term (current) use of insulin; Z79.899 Other long term (current) drug therapy; Z99.2 Dependence on renal dialysis
CPT/HCPCS: 36415; 36600; 49083; 71045; 80048; 82375; 82805; 82962; 83036; 83735; 84100; 84132; 84443; 85014; 85025; 85347; 85384; 86705; 86709; 86803; 86850; 86900; 86920; 86927; 87340; 87426; 93005; 94060; 94640; 97110; 97116; 97162; 97166; 97530; 97535; C1725; C1729; C1751; C1758; J0282; J0690; J0885; J1100; J1265; J1644; J1815; J2270; J2405; J2440; J2597; J2710; J2720; J2765; J3010; J3370; J3475; J3490; J7030; J7050; J7060; L3908; P9016; P9017; P9034; P9047

== ENCOUNTER 2022-02-09 23:03 | Inpatient (IN) | payer MEDICARE, MEDICAID ==
[~2022-02-09] VITALS: Ht 165.1 cm; Wt 68.9 kg
[~2022-02-09 23:03] MED LIST changes: -BACITRACIN 15GM TUBE TOP ONE; -CEFAZOLIN 2,000 MG in DEXT 5% WATER 100 ML IV NR; -DEL NIDO ELECTROLYTE-S(PH 7.4) 1,000 ML IV NR; -DOPAMINE 400MG/250ML PREMIX 250 ML IV ONE; -EPINEPHRINE 5 MG in DEXT 5% WATER 245 ML IV NR; -HEPARIN 5000 UNITS/ML VIAL ONE; -INSULIN REGULAR (DRIP) 100 UNITS in SODIUM CHLORIDE 0.9% 99 ML IV NR; -NICARDIPINE 40MG/200ML PREMIX 200 ML IV ONE; -NOREPINEPHRINE 8 MG in DEXT 5% WATER 242 ML IV NR; +ONDA4TAB11 PO; -PAPAVERINE HCL 180MG in SODIUM CHLORIDE 0.9% 24ML IV NR; -SEVOFLURANE 250 ML LIQUID INH ONE; -SKIN ADHESIVE 0.7 GM EA TOP ONE; -SODIUM CHLORIDE 0.9% 500 ML IV ONE; -THROMBIN (BOVINE) 5000 UNITS/VIAL TOP ONE
[2022-02-09 23:54] VITALS: BP 126/59
[2022-02-10] MEDS ORDERED: ALBUMIN HUMAN 12.5G/250ML (5%) IV PRN (00:15)
[2022-02-10] MEDS ORDERED: NON FORMULARY PATIENT HOME MED XX SCH (00:15)
[2022-02-10] MEDS ORDERED: NALOXONE HCL 0.4 MG/ML 1ML VIAL IV PRN (00:30)
[2022-02-10] MEDS ORDERED: MORPHINE SULFATE 2 MG/ML CPJ (NOT FOR IM USE) IV PRN (00:30)
[2022-02-10] MEDS ORDERED: ONDANSETRON HCL 4MG TABLET PO PRN (00:30)
[2022-02-10] MEDS ORDERED: ALBUMIN HUMAN 25GM/100ML (25%) IV PRN (00:30)
[2022-02-10] MEDS ORDERED: DEXTROSE 50% WATER 50ML SYRINGE IV PRN (00:45)
[2022-02-10] MEDS: BLOOD SUGAR DIAGNOSTIC STRIP TEST SCH ×4 (06:04→23:10)
[2022-02-10 07:49] LABS: BASOPHILS % 0.5 % (0.0-2.0); EOSINOPHILS % 3.8 % (0.0-5.0); HEMATOCRIT. 25.5 % (42.0-52.0); HEMOGLOBIN. 8.5 g/dL (14.0-18.0); LYMPHOCYTES % 11.6 % (20.0-50.0); MEAN CORPUSCULAR HEMOGLOBIN 29.9 pg (28.0-32.0); MEAN CORPUSCULAR VOLUME 89.4 fL (80.0-94.0); MONOCYTES % 13.1 % (2.0-8.0); PLATELET 237 x1000/uL (130-400); RED BLOOD CELL COUNT 2.85 mill/uL (4.7-6.1)
[2022-02-10] MEDS: IPRATROPIUM/ALBUTEROL 0.5-3(2.5)MG/3ML NEB HHN SCH ×4 (08:19→19:36)
[2022-02-10] MEDS ORDERED: FAMOTIDINE 20MG/2ML VIAL IV SCH (09:00)
[2022-02-10] MEDS: INSULIN LISPRO 100 UNITS/ML SUBCUT SCH ×4 (09:00→23:24)
[2022-02-10] MEDS ORDERED: FAMOTIDINE 20MG TABLET PO SCH (09:00)
[2022-02-10] MEDS: LACTULOSE 20G/30ML UDC PO SCH ×2 (09:23→18:03)
[2022-02-10] MEDS: CLOPIDOGREL 75MG TABLET PO SCH (09:23)
[2022-02-10] MEDS: DOCUSATE SODIUM 100MG CAPSULE PO SCH ×2 (09:23→18:03)
[2022-02-10] MEDS: BACITRACIN 15GM TUBE TOP SCH ×2 (09:24→17:00)
[2022-02-10 14:24] VITALS: BP 123/59
[2022-02-10] MEDS: FAMOTIDINE 20MG TABLET PO SCH (18:04)
[2022-02-10 20:00] VITALS: BP 141/68
[2022-02-10] MEDS: ATORVASTATIN CALCIUM 40MG TABLET PO SCH (23:17)
[2022-02-11] MEDS: IPRATROPIUM/ALBUTEROL 0.5-3(2.5)MG/3ML NEB HHN SCH ×6 (04:30→23:55)
[2022-02-11] MEDS: HYDROCODONE/APAP 7.5/325MG 1 TAB TABLET PO PRN ×2 (05:38→17:52)
[2022-02-11 06:40] LABS: PROTHROMBIN TIME 11.2 sec (9.6-11.0)
[2022-02-11 08:00] VITALS: BP 99/49
[2022-02-11] MEDS: FAMOTIDINE 20MG TABLET PO SCH (09:00)
[2022-02-11] MEDS: CLOPIDOGREL 75MG TABLET PO SCH (09:00)
[2022-02-11] MEDS: DOCUSATE SODIUM 100MG CAPSULE PO SCH ×2 (09:00→17:06)
[2022-02-11] MEDS: INSULIN LISPRO 100 UNITS/ML SUBCUT SCH ×4 (09:00→21:38)
[2022-02-11] MEDS: BACITRACIN 15GM TUBE TOP SCH ×2 (09:00→17:56)
[2022-02-11] MEDS: LACTULOSE 20G/30ML UDC PO SCH ×2 (09:00→17:00)
[2022-02-11] MEDS ORDERED: FAMOTIDINE 20MG TABLET PO SCH (09:00)
[2022-02-11] MEDS ORDERED: LIDOCAINE HCL 1% 10 MG/ML 10ML VIAL ONE (09:34)
[2022-02-11] MEDS ORDERED: SODIUM BICARBONATE 4% (2.4MEQ) 5ML VIAL IV ONE (09:34)
[2022-02-11] MEDS: BLOOD SUGAR DIAGNOSTIC STRIP TEST SCH ×3 (11:15→21:00)
[2022-02-11 20:45] VITALS: BP 104/49
[2022-02-11] MEDS: ATORVASTATIN CALCIUM 40MG TABLET PO SCH (21:36)
[2022-02-11] MEDS: EPOETIN ALFA-EPBX 10,000 UNIT/ML VIAL SUBCUT SCH (21:38)
[2022-02-12] MEDS: HYDROCODONE/APAP 7.5/325MG 1 TAB TABLET PO PRN ×2 (03:01→16:55)
[2022-02-12] MEDS: BLOOD SUGAR DIAGNOSTIC STRIP TEST SCH ×4 (06:13→21:43)
[2022-02-12 06:33] LABS: BASOPHILS % 0.8 % (0.0-2.0); EOSINOPHILS % 3.9 % (0.0-5.0); HEMATOCRIT. 26.7 % (42.0-52.0); HEMOGLOBIN. 9.1 g/dL (14.0-18.0); MEAN CORPUSCULAR HEMOGLOBIN 30.3 pg (28.0-32.0); MEAN CORPUSCULAR VOLUME 89.3 fL (80.0-94.0); MEAN PLATELET VOLUME 6.8 fl (7.4-10.4); NEUTROPHILS % 72.3 % (40.0-76.0); PLATELET 238 x1000/uL (130-400); RED BLOOD CELL COUNT 2.99 mill/uL (4.7-6.1); RED CELL DISTRIBUTION WIDTH 14.4 % (11.6-14.6)
[2022-02-12] MEDS: INSULIN LISPRO 100 UNITS/ML SUBCUT SCH ×4 (07:14→21:43)
[2022-02-12 07:50] VITALS: BP 106/53
[2022-02-12] MEDS: BACITRACIN 15GM TUBE TOP SCH ×2 (09:00→16:28)
[2022-02-12] MEDS: CLOPIDOGREL 75MG TABLET PO SCH (09:16)
[2022-02-12] MEDS: DOCUSATE SODIUM 100MG CAPSULE PO SCH ×2 (09:16→16:28)
[2022-02-12] MEDS: LACTULOSE 20G/30ML UDC PO SCH ×2 (09:16→16:27)
[2022-02-12] MEDS: FAMOTIDINE 20MG TABLET PO SCH ×4 (09:16→11:37)
[2022-02-12] MEDS: IPRATROPIUM/ALBUTEROL 0.5-3(2.5)MG/3ML NEB HHN SCH ×3 (09:24→19:55)
[2022-02-12 12:21] LABS: HEPATITIS B SURFACE ANTIGEN NEGATIVE
[2022-02-12 20:00] VITALS: BP 110/48
[2022-02-12] MEDS: ATORVASTATIN CALCIUM 40MG TABLET PO SCH (21:39)
[2022-02-13] MEDS: IPRATROPIUM/ALBUTEROL 0.5-3(2.5)MG/3ML NEB HHN SCH ×6 (04:00→21:47)
[2022-02-13] MEDS: HYDROCODONE/APAP 7.5/325MG 1 TAB TABLET PO PRN (06:42)
[2022-02-13] MEDS: INSULIN LISPRO 100 UNITS/ML SUBCUT SCH ×4 (06:45→21:50)
[2022-02-13] MEDS: BLOOD SUGAR DIAGNOSTIC STRIP TEST SCH ×4 (06:47→21:00)
[2022-02-13] MEDS: BACITRACIN 15GM TUBE TOP SCH ×2 (07:21→17:18)
[2022-02-13 08:00] VITALS: BP 108/47
[2022-02-13] MEDS: LACTULOSE 20G/30ML UDC PO SCH ×2 (09:08→17:00)
[2022-02-13] MEDS: CLOPIDOGREL 75MG TABLET PO SCH (09:09)
[2022-02-13] MEDS: DOCUSATE SODIUM 100MG CAPSULE PO SCH ×2 (09:09→17:16)
[2022-02-13 20:00] VITALS: BP 119/54
[2022-02-13] MEDS: ATORVASTATIN CALCIUM 40MG TABLET PO SCH (21:00)
[2022-02-13] MEDS: EPOETIN ALFA-EPBX 10,000 UNIT/ML VIAL SUBCUT SCH (21:37)
[2022-02-14] MEDS: IPRATROPIUM/ALBUTEROL 0.5-3(2.5)MG/3ML NEB HHN SCH ×6 (02:01→22:06)
[2022-02-14] MEDS: INSULIN LISPRO 100 UNITS/ML SUBCUT SCH ×5 (06:30→22:00)
[2022-02-14] MEDS: BLOOD SUGAR DIAGNOSTIC STRIP TEST SCH ×4 (06:38→21:09)
[2022-02-14 08:00] VITALS: BP 110/57
[2022-02-14] MEDS: LACTULOSE 20G/30ML UDC PO SCH ×2 (09:00→17:00)
[2022-02-14] MEDS: CLOPIDOGREL 75MG TABLET PO SCH (09:09)
[2022-02-14] MEDS: FAMOTIDINE 20MG TABLET PO SCH (09:09)
[2022-02-14] MEDS: BACITRACIN 15GM TUBE TOP SCH ×3 (09:09→19:07)
[2022-02-14] MEDS: DOCUSATE SODIUM 100MG CAPSULE PO SCH ×2 (09:09→17:40)
[2022-02-14] MEDS: ONDANSETRON 4MG ODT PO PRN (09:18)
[2022-02-14] MEDS: SIMETHICONE 80MG TABLET CHEW PO PRN (19:07)
[2022-02-14 20:00] VITALS: BP 109/62
[2022-02-14] MEDS: ATORVASTATIN CALCIUM 40MG TABLET PO SCH (21:55)
[2022-02-15] MEDS: ONDANSETRON 4MG ODT PO PRN (00:59)
[2022-02-15] MEDS: IPRATROPIUM/ALBUTEROL 0.5-3(2.5)MG/3ML NEB HHN SCH ×4 (01:29→16:40)
[2022-02-15] MEDS: BLOOD SUGAR DIAGNOSTIC STRIP TEST SCH ×4 (06:32→20:44)
[2022-02-15] MEDS: INSULIN LISPRO 100 UNITS/ML SUBCUT SCH ×4 (06:36→20:44)
[2022-02-15 08:00] VITALS: BP 140/75
[2022-02-15] MEDS: LACTULOSE 20G/30ML UDC PO SCH ×2 (09:00→17:28)
[2022-02-15] MEDS: FAMOTIDINE 20MG TABLET PO SCH (09:00)
[2022-02-15] MEDS: CLOPIDOGREL 75MG TABLET PO SCH (09:00)
[2022-02-15] MEDS: BACITRACIN 15GM TUBE TOP SCH ×2 (09:00→17:00)
[2022-02-15] MEDS: DOCUSATE SODIUM 100MG CAPSULE PO SCH ×2 (09:00→17:28)
[2022-02-15 09:11] LABS: BASOPHILS % 0.9 % (0.0-2.0); EOSINOPHILS % 3.4 % (0.0-5.0); HEMOGLOBIN. 9.2 g/dL (14.0-18.0); LYMPHOCYTES % 10.9 % (20.0-50.0); MEAN CORPUSCULAR HEMOGLOBIN 29.9 pg (28.0-32.0); MEAN CORPUSCULAR VOLUME 90.5 fL (80.0-94.0); MEAN PLATELET VOLUME 6.6 fl (7.4-10.4); MONOCYTES % 6.3 % (2.0-8.0); NEUTROPHILS % 78.5 % (40.0-76.0); PLATELET 278 x1000/uL (130-400); RED BLOOD CELL COUNT 3.09 mill/uL (4.7-6.1); RED CELL DISTRIBUTION WIDTH 14.5 % (11.6-14.6)
[2022-02-15] MEDS: SIMETHICONE 80MG TABLET CHEW PO PRN (09:30)
[2022-02-15] MEDS ORDERED: CARVEDILOL 3.125 MG TABLET PO NR (14:00)
[2022-02-15] MEDS: METOCLOPRAMIDE HCL 10MG/2ML VIAL IV SCH ×2 (18:00→23:47)
[2022-02-15] MEDS ORDERED: ASPIRIN 81MG TABLET PO NR (18:15)
[2022-02-15 20:00] VITALS: BP 149/80
[2022-02-15] MEDS: ATORVASTATIN CALCIUM 40MG TABLET PO SCH (21:14)
[2022-02-15] MEDS: CARVEDILOL 3.125 MG TABLET PO SCH (21:15)
[2022-02-15 21:57] VITALS: BP 134/68
[2022-02-16] MEDS: IPRATROPIUM/ALBUTEROL 0.5-3(2.5)MG/3ML NEB HHN SCH ×4 (00:25→20:56)
[2022-02-16] MEDS: METOCLOPRAMIDE HCL 10MG/2ML VIAL IV SCH ×2 (06:19→12:00)
[2022-02-16] MEDS: BLOOD SUGAR DIAGNOSTIC STRIP TEST SCH ×4 (06:30→21:00)
[2022-02-16 06:51] LABS: BASOPHILS % 0.7 % (0.0-2.0); EOSINOPHILS % 3.6 % (0.0-5.0); HEMATOCRIT. 25.3 % (42.0-52.0); HEMOGLOBIN. 8.6 g/dL (14.0-18.0); LYMPHOCYTES % 8.9 % (20.0-50.0); MEAN CORPUSCULAR HEMOGLOBIN 30.4 pg (28.0-32.0); MEAN CORPUSCULAR VOLUME 89.2 fL (80.0-94.0); MEAN PLATELET VOLUME 6.5 fl (7.4-10.4); MONOCYTES % 7.5 % (2.0-8.0); NEUTROPHILS % 79.3 % (40.0-76.0); PLATELET 271 x1000/uL (130-400); RED BLOOD CELL COUNT 2.83 mill/uL (4.7-6.1); RED CELL DISTRIBUTION WIDTH 14.7 % (11.6-14.6)
[2022-02-16] MEDS: INSULIN LISPRO 100 UNITS/ML SUBCUT SCH ×4 (07:52→22:18)
[2022-02-16] MEDS: LACTULOSE 20G/30ML UDC PO SCH ×2 (09:00→17:00)
[2022-02-16] MEDS ORDERED: HYDROCODONE/ACETAMINOPHEN 5/325MG TABLET PO NR (09:00)
[2022-02-16] MEDS: CARVEDILOL 3.125 MG TABLET PO SCH ×2 (09:00→21:00)
[2022-02-16] MEDS: DOCUSATE SODIUM 100MG CAPSULE PO SCH ×2 (09:00→17:00)
[2022-02-16] MEDS: BACITRACIN 15GM TUBE TOP SCH (09:00)
[2022-02-16] MEDS ORDERED: NALOXONE HCL 0.4MG/ML VIAL IV PRN (11:30)
[2022-02-16] MEDS: CLOPIDOGREL 75MG TABLET PO SCH (14:34)
[2022-02-16] MEDS: FAMOTIDINE 20MG TABLET PO SCH ×2 (14:38→18:34)
[2022-02-16 20:00] VITALS: BP 109/59
[2022-02-16] MEDS: ATORVASTATIN CALCIUM 40MG TABLET PO SCH (22:07)
[2022-02-16] MEDS: EPOETIN ALFA-EPBX 10,000 UNIT/ML VIAL SUBCUT SCH (22:07)
[2022-02-17] MEDS: METOCLOPRAMIDE HCL 10MG/2ML VIAL IV SCH ×4 (06:04→17:39)
[2022-02-17] MEDS: HYDROCODONE/ACETAMINOPHEN 5/325MG TABLET PO PRN (06:04)
[2022-02-17] MEDS: INSULIN LISPRO 100 UNITS/ML SUBCUT SCH ×4 (06:09→22:03)
[2022-02-17] MEDS: BLOOD SUGAR DIAGNOSTIC STRIP TEST SCH ×4 (06:10→21:18)
[2022-02-17 06:24] LABS: BASOPHILS % 1.2 % (0.0-2.0); EOSINOPHILS % 3.7 % (0.0-5.0); HEMATOCRIT. 26.3 % (42.0-52.0); HEMOGLOBIN. 8.9 g/dL (14.0-18.0); LYMPHOCYTES % 10.9 % (20.0-50.0); MEAN CORPUSCULAR HEMOGLOBIN 30.1 pg (28.0-32.0); MEAN CORPUSCULAR VOLUME 89.1 fL (80.0-94.0); MEAN PLATELET VOLUME 6.7 fl (7.4-10.4); MONOCYTES % 7.4 % (2.0-8.0); NEUTROPHILS % 76.8 % (40.0-76.0); PLATELET 277 x1000/uL (130-400); RED BLOOD CELL COUNT 2.95 mill/uL (4.7-6.1); RED CELL DISTRIBUTION WIDTH 14.6 % (11.6-14.6)
[2022-02-17 08:00] VITALS: BP 138/64
[2022-02-17] MEDS: LACTULOSE 20G/30ML UDC PO SCH ×2 (08:40→17:00)
[2022-02-17] MEDS: CARVEDILOL 3.125 MG TABLET PO SCH ×2 (08:40→21:58)
[2022-02-17] MEDS: BACITRACIN 15GM TUBE TOP SCH ×2 (08:40→17:39)
[2022-02-17] MEDS: CLOPIDOGREL 75MG TABLET PO SCH (08:41)
[2022-02-17] MEDS: DOCUSATE SODIUM 100MG CAPSULE PO SCH ×2 (08:41→17:39)
[2022-02-17] MEDS: IPRATROPIUM/ALBUTEROL 0.5-3(2.5)MG/3ML NEB HHN SCH (12:13)
[2022-02-17] MEDS ORDERED: IPRATROPIUM/ALBUTEROL 0.5-3(2.5)MG/3ML NEB HHN PRN (15:00)
[2022-02-17 20:00] VITALS: BP 131/62
[2022-02-17] MEDS: ATORVASTATIN CALCIUM 40MG TABLET PO SCH (21:58)
[2022-02-18] MEDS: METOCLOPRAMIDE HCL 10MG/2ML VIAL IV SCH ×4 (00:14→18:48)
[2022-02-18] MEDS: BLOOD SUGAR DIAGNOSTIC STRIP TEST SCH ×4 (06:00→20:21)
[2022-02-18] MEDS: HYDROCODONE/ACETAMINOPHEN 5/325MG TABLET PO PRN ×2 (06:02→10:29)
[2022-02-18] MEDS: INSULIN LISPRO 100 UNITS/ML SUBCUT SCH ×4 (06:09→20:23)
[2022-02-18 08:00] VITALS: BP 129/61
[2022-02-18] MEDS: BACITRACIN 15GM TUBE TOP SCH ×2 (09:00→17:23)
[2022-02-18] MEDS: LACTULOSE 20G/30ML UDC PO SCH ×2 (09:00→17:00)
[2022-02-18] MEDS: CLOPIDOGREL 75MG TABLET PO SCH (10:15)
[2022-02-18] MEDS: DOCUSATE SODIUM 100MG CAPSULE PO SCH ×2 (10:15→17:19)
[2022-02-18] MEDS: CARVEDILOL 3.125 MG TABLET PO SCH ×2 (10:15→20:12)
[2022-02-18] MEDS: FAMOTIDINE 20MG TABLET PO SCH (10:16)
[2022-02-18 20:00] VITALS: BP 136/62
[2022-02-18] MEDS: ATORVASTATIN CALCIUM 40MG TABLET PO SCH (20:11)
[2022-02-19] MEDS: METOCLOPRAMIDE HCL 10MG/2ML VIAL IV SCH ×4 (00:02→18:00)
[2022-02-19] MEDS: BLOOD SUGAR DIAGNOSTIC STRIP TEST SCH ×4 (05:46→21:20)
[2022-02-19 06:28] LABS: BASOPHILS % 1.3 % (0.0-2.0); EOSINOPHILS % 4.5 % (0.0-5.0); HEMATOCRIT. 25.6 % (42.0-52.0); HEMOGLOBIN. 8.5 g/dL (14.0-18.0); LYMPHOCYTES % 11.7 % (20.0-50.0); MEAN CORPUSCULAR HEMOGLOBIN 29.6 pg (28.0-32.0); MEAN CORPUSCULAR VOLUME 89.6 fL (80.0-94.0); MEAN PLATELET VOLUME 6.4 fl (7.4-10.4); MONOCYTES % 7.2 % (2.0-8.0); NEUTROPHILS % 75.3 % (40.0-76.0); PLATELET 283 x1000/uL (130-400); RED BLOOD CELL COUNT 2.86 mill/uL (4.7-6.1); RED CELL DISTRIBUTION WIDTH 14.9 % (11.6-14.6)
[2022-02-19 08:22] VITALS: BP_SYST 134; BP_SYST 162; BP_DIAS 67; BP_DIAS 78
[2022-02-19] MEDS: DOCUSATE SODIUM 100MG CAPSULE PO SCH ×2 (09:00→17:00)
[2022-02-19] MEDS: FAMOTIDINE 20MG TABLET PO SCH (09:00)
[2022-02-19] MEDS: CLOPIDOGREL 75MG TABLET PO SCH (09:00)
[2022-02-19] MEDS: LACTULOSE 20G/30ML UDC PO SCH ×2 (09:00→17:00)
[2022-02-19] MEDS: INSULIN LISPRO 100 UNITS/ML SUBCUT SCH ×4 (09:00→21:00)
[2022-02-19] MEDS: BACITRACIN 15GM TUBE TOP SCH ×2 (09:00→21:21)
[2022-02-19] MEDS: CARVEDILOL 3.125 MG TABLET PO SCH ×2 (09:01→21:20)
[2022-02-19 20:00] VITALS: BP 149/82
[2022-02-19] MEDS: ATORVASTATIN CALCIUM 40MG TABLET PO SCH (21:20)
[2022-02-20] MEDS: METOCLOPRAMIDE HCL 10MG/2ML VIAL IV SCH ×4 (00:01→12:00)
[2022-02-20] MEDS: BLOOD SUGAR DIAGNOSTIC STRIP TEST SCH ×2 (05:34→12:00)
[2022-02-20] MEDS: INSULIN LISPRO 100 UNITS/ML SUBCUT SCH ×2 (05:35→12:48)
[2022-02-20 08:00] VITALS: BP 146/63
[2022-02-20] MEDS: DOCUSATE SODIUM 100MG CAPSULE PO SCH (09:39)
[2022-02-20] MEDS: FAMOTIDINE 20MG TABLET PO SCH (09:39)
[2022-02-20] MEDS: CLOPIDOGREL 75MG TABLET PO SCH (09:39)
[2022-02-20] MEDS: CARVEDILOL 3.125 MG TABLET PO SCH (09:39)
[2022-02-20] MEDS: BACITRACIN 15GM TUBE TOP SCH (09:45)
[2022-02-20] MEDS: LACTULOSE 20G/30ML UDC PO SCH (09:45)
[2022-02-20 11:52] VITALS: BP 146/63
[2022-02-20] MEDS ORDERED: COR3 PO (13:11)
[2022-02-20] MEDS ORDERED: LIP40 PO (13:11)
[2022-02-20] MEDS ORDERED: FAMO-135 PO (13:12)
[2022-02-20] MEDS ORDERED: HYDR-4001 PO (13:13)
== END 2022-02-20 16:05 | disposition home health service (06) | DRG 302 ==
PROVIDERS: ADMIT Psychiatry & Neurology Neurology; ATTEND Hospitalist
PROC: 5A1D70Z Performance of Urinary Filtration, Intermittent, Less than 6 Hours Per Day (ICD-10-PCS; 2022-02-10)
PROC: 0W9G3ZZ Drainage of Peritoneal Cavity, Percutaneous Approach (ICD-10-PCS; principal; 2022-02-11)
PROC: 5A1D70Z Performance of Urinary Filtration, Intermittent, Less than 6 Hours Per Day (ICD-10-PCS; 2022-02-12)
PROC: 5A1D70Z Performance of Urinary Filtration, Intermittent, Less than 6 Hours Per Day (ICD-10-PCS; 2022-02-15)
PROC: 5A1D70Z Performance of Urinary Filtration, Intermittent, Less than 6 Hours Per Day (ICD-10-PCS; 2022-02-17)
PROC: 5A1D70Z Performance of Urinary Filtration, Intermittent, Less than 6 Hours Per Day (ICD-10-PCS; 2022-02-19)
DX: I25.10 Atherosclerotic heart disease of native coronary artery without angina pectoris (principal); N18.6 End stage renal disease; R18.8 Other ascites; I13.2 Hypertensive heart and chronic kidney disease with heart failure and with stage 5 chronic kidney disease, or end stage renal disease; I50.32 Chronic diastolic (congestive) heart failure; Z95.1 Presence of aortocoronary bypass graft; E03.9 Hypothyroidism, unspecified; E11.22 Type 2 diabetes mellitus with diabetic chronic kidney disease; D64.9 Anemia, unspecified; E78.5 Hyperlipidemia, unspecified; E87.5 Hyperkalemia; I48.0 Paroxysmal atrial fibrillation; I44.7 Left bundle-branch block, unspecified; K29.70 Gastritis, unspecified, without bleeding; K74.60 Unspecified cirrhosis of liver; Z20.822 Contact with and (suspected) exposure to COVID-19; Z79.4 Long term (current) use of insulin; Z87.891 Personal history of nicotine dependence; Z95.5 Presence of coronary angioplasty implant and graft; Z99.2 Dependence on renal dialysis; Z79.02 Long term (current) use of antithrombotics/antiplatelets; Z79.899 Other long term (current) drug therapy; Z79.82 Long term (current) use of aspirin; E11.43 Type 2 diabetes mellitus with diabetic autonomic (poly)neuropathy; K31.84 Gastroparesis
CPT/HCPCS: 36415; 49083; 76700; 80048; 80076; 82962; 83735; 84484; 85025; 86705; 86709; 86803; 87340; 87426; 93005; 93970; 94640; 97110; 97116; 97150; 97162; 97166; 97530; 97535; J0885; J1815; J2765; J3490; J7030; Q0162

== ENCOUNTER 2022-03-13 13:59 | Emergency (ER) | payer MEDICARE, MEDICAID ==
[~2022-03-13] VITALS: Ht 165.1 cm; Wt 72.0 kg
[~2022-03-13 13:59] MED LIST changes: -AMLO10TA80 PO; -ATOR20TA65 PO; +COR3 PO; +FAMO-135 PO; +HYDR-4001 PO; -HYDR-4133 PO; -INSLIS SUBCUT; -INSU100I24 SQ; +LIP40 PO; -ONDA4TAB11 PO; -PROT40 PO
[2022-03-13 14:11] VITALS: BP 155/60
[2022-03-13] MEDS ORDERED: ACETAMINOPHEN 500MG TABLET PO ONE (16:30)
[2022-03-13] MEDS ORDERED: ACET-2708 MT (17:24)
== END 2022-03-13 18:40 | disposition home or self-care (01) ==
LOC: ER 13:59
DX: S60.212A Contusion of left wrist, initial encounter (principal); I13.2 Hypertensive heart and chronic kidney disease with heart failure and with stage 5 chronic kidney disease, or end stage renal disease; I50.9 Heart failure, unspecified; E11.22 Type 2 diabetes mellitus with diabetic chronic kidney disease; N18.6 End stage renal disease; Z99.2 Dependence on renal dialysis; E78.00 Pure hypercholesterolemia, unspecified; W01.0XXA Fall on same level from slipping, tripping and stumbling without subsequent striking against object, initial encounter; Y93.01 Activity, walking, marching and hiking; Y92.9 Unspecified place or not applicable; Z79.82 Long term (current) use of aspirin
CPT/HCPCS: 73110; 73130; 99284

== ENCOUNTER 2022-10-02 11:11 | Emergency (ER) | payer MEDICARE, MEDICAID ==
[~2022-10-02] VITALS: Ht 160 cm; Wt 75.0 kg
[~2022-10-02 11:11] MED LIST changes: +ACET-2708 MT
[2022-10-02 11:21] VITALS: BP 195/90
[2022-10-02] MEDS ORDERED: LIDOCAINE HCL/EPINEPHRINE 1%-EPI 1:100,000 20 ML VIAL INFIL ONE (11:30)
[2022-10-02] MEDS ORDERED: BACITRACIN ZINC OINT UDPKT TOP ONE (11:30)
[2022-10-02] MEDS ORDERED: LIDOCAINE HCL/EPINEPHRINE 1%-EPI 1:100,000 30 ML VIAL INFIL NR (11:45)
== END 2022-10-02 18:27 | disposition home or self-care (01) ==
LOC: ER 11:13 → SUPCPDRO 11:22 → ER 18:27
DX: L76.22 Postprocedural hemorrhage of skin and subcutaneous tissue following other procedure (principal); Y84.4 Aspiration of fluid as the cause of abnormal reaction of the patient, or of later complication, without mention of misadventure at the time of the procedure; Y82.8 Other medical devices associated with adverse incidents; Y92.9 Unspecified place or not applicable; E11.22 Type 2 diabetes mellitus with diabetic chronic kidney disease; N18.6 End stage renal disease; Z99.2 Dependence on renal dialysis; I13.2 Hypertensive heart and chronic kidney disease with heart failure and with stage 5 chronic kidney disease, or end stage renal disease; I50.9 Heart failure, unspecified; I25.10 Atherosclerotic heart disease of native coronary artery without angina pectoris; E78.00 Pure hypercholesterolemia, unspecified; K74.60 Unspecified cirrhosis of liver; Z79.82 Long term (current) use of aspirin; Z98.890 Other specified postprocedural states
CPT/HCPCS: 99281; J3490

== ENCOUNTER 2023-08-02 10:03 | Inpatient (IN) | payer MEDICARE, MEDICAID ==
[~2023-08-02] VITALS: Ht 170.2 cm; Wt 53.1 kg
[2023-08-02] VITALS (9 sets, daily range): BP systolic 124–143; BP diastolic 40–59; PULSE 76–93; RESP 19–20; TEMP 99; O2SAT 100
[2023-08-02 11:32] LABS: BASOPHILS % 2.9 % (0.0-2.0); EOSINOPHILS % 4.7 % (0.0-5.0); HEMOGLOBIN. 12.3 g/dL (14.0-18.0); LYMPHOCYTES % 20.5 % (20.0-50.0); MEAN CORPUSCULAR HGB CONC 31.4 g/dL (31.0-37.0); MEAN CORPUSCULAR VOLUME 89.2 fL (80.0-94.0); MEAN PLATELET VOLUME 7.7 fl (7.4-10.4); MONOCYTES % 8.3 % (2.0-8.0); NEUTROPHILS % 63.6 % (40.0-76.0); PLATELET 154 x1000/uL (130-400); RED BLOOD CELL COUNT 4.37 mill/uL (4.7-6.1); RED CELL DISTRIBUTION WIDTH 14.9 % (11.6-14.6); WHITE BLOOD COUNT 5.3 x1000/uL (4.5-11.0)
[2023-08-02 11:41] LABS: INR 1.1; PARTIAL THROMBOPLASTIN TIME 30.2 sec (23.4-31.0); PROTHROMBIN TIME 12.1 sec (9.6-11.0)
[2023-08-02 11:56] LABS: ALANINE AMINOTRANSFERASE < 7 IU/L (10-49); ALBUMIN 3.6 g/dL (3.2-4.8); ASPARTATE AMINOTRANSFERASE 16 IU/L (<34); BILIRUBIN TOTAL 0.5 mg/dL (0.1-1.0); CALCIUM 9.1 mg/dL (8.7-10.4); CARBON DIOXIDE 28 mEq/L (21-32); CHLORIDE 96 mEq/L (98-107); GLUCOSE 129 mg/dL (70-105); PROTEIN TOTAL 6.5 g/dL (6.0-8.3); SODIUM 137 mEq/L (136-145); TROPONIN I HIGH SENSITIVITY 52 ng/L (3.0-53); UREA NITROGEN BLOOD 84 mg/dL (9-23)
[2023-08-02] MEDS: CALCIUM CHLORIDE 1GM/10ML SYR IV ONE ×2 (12:10→15:16)
[2023-08-02 12:55] LABS: POTASSIUM 6.5 mEq/L (3.5-5.1)
[2023-08-02 12:56] LABS: CREATININE 12.2 mg/dL (0.6-1.3)
[2023-08-02] MEDS ORDERED: DEXTROSE 50% WATER 50ML SYRINGE IV ONE (13:15)
[2023-08-02] MEDS ORDERED: INSULIN REGULAR (HUMULIN R) 300UNITS/3ML VIAL IV ONE (13:15)
[2023-08-02] MEDS ORDERED: ALBUTEROL (0.083%) 2.5MG/3ML NEB HHN ONE (13:15)
[2023-08-02] MEDS ORDERED: SODIUM BICARBONATE 8.4% 1 MEQ/ML 50ML SYR IV ONE (13:15)
[2023-08-02] MEDS ORDERED: ALBUTEROL (0.083%) 2.5MG/3ML NEB HHN NR (14:30)
[2023-08-02] MEDS ORDERED: DEXTROSE 50% WATER 50ML SYRINGE IV NR (14:30)
[2023-08-02] MEDS ORDERED: SODIUM BICARBONATE 8.4% 1 MEQ/ML 50ML SYR IV NR (14:30)
[2023-08-02] MEDS ORDERED: INSULIN REGULAR (HUMULIN R) 300UNITS/3ML VIAL IV NR (14:30)
[2023-08-02 21:01] LABS: HEPATITIS A AB IGM NEGATIVE (Negative); HEPATITIS B CORE AB IGM NEGATIVE (Negative); HEPATITIS B SURFACE ANTIGEN NEGATIVE (Negative); HEPATITIS C AB NON REACTIVE (Neg) (Negative)
[2023-08-03] VITALS (12 sets, daily range): BP systolic 106–127; BP diastolic 48–68; PULSE 71–80; RESP 16–20; TEMP 98.6–99.7
[2023-08-03] MEDS ORDERED: DIPHENHYDRAMINE 25MG CAPSULE PO PRN (06:00)
[2023-08-03] MEDS ORDERED: CLONIDINE 0.1MG TABLET PO PRN (06:00)
[2023-08-03] MEDS ORDERED: HYDROCODONE/ACETAMINOPHEN 5/325MG TABLET PO PRN (06:00)
[2023-08-03] MEDS ORDERED: ACETAMINOPHEN 325MG TABLET PO PRN (06:00)
[2023-08-03] MEDS ORDERED: DEXTROSE 50% WATER 50ML SYRINGE IV PRN ×2 (06:00)
[2023-08-03] MEDS: BLOOD SUGAR DIAGNOSTIC STRIP TEST SCH ×4 (06:30→21:57)
[2023-08-03] MEDS ORDERED: OMEPRAZOLE 20MG CAPSULE EXTENDED RELEASE PO SCH (06:30)
[2023-08-03 06:37] LABS: HEMATOCRIT 34.9 % (42.0-52.0); HEMOGLOBIN 11.3 g/dL (14.0-18.0); MEAN CORPUSCULAR HEMOGLOBIN 28.6 pg (28.0-32.0); MEAN CORPUSCULAR HGB CONC 32.3 g/dL (31.0-37.0); MEAN CORPUSCULAR VOLUME 88.7 fL (80.0-94.0); PLATELET 140 x1000/uL (130-400); RED BLOOD CELL COUNT 3.93 mill/uL (4.7-6.1); RED CELL DISTRIBUTION WIDTH 14.8 % (11.6-14.6); WHITE BLOOD COUNT 5.3 x1000/uL (4.5-11.0)
[2023-08-03 06:57] LABS: ALANINE AMINOTRANSFERASE < 7 IU/L (10-49); ALBUMIN 3.4 g/dL (3.2-4.8); ASPARTATE AMINOTRANSFERASE 17 IU/L (<34); BILIRUBIN TOTAL 0.5 mg/dL (0.1-1.0); CALCIUM 8.8 mg/dL (8.7-10.4); CARBON DIOXIDE 29 mEq/L (21-32); CHLORIDE 98 mEq/L (98-107); GLUCOSE 200 mg/dL (70-105); POTASSIUM 5.6 mEq/L (3.5-5.1); PROTEIN TOTAL 6.1 g/dL (6.0-8.3); SODIUM 140 mEq/L (136-145); UREA NITROGEN BLOOD 58 mg/dL (9-23)
[2023-08-03 07:07] LABS: CREATININE 9.7 mg/dL (0.6-1.3)
[2023-08-03] MEDS: ENOXAPARIN 30MG/0.3ML SYR SUBCUT SCH (09:00)
[2023-08-03] MEDS: AMLODIPINE 10MG TABLET PO SCH (09:00)
[2023-08-03] MEDS ORDERED: NALOXONE HCL 0.4MG/ML VIAL IV PRN (09:15)
[2023-08-03] MEDS: CARVEDILOL 3.125 MG TABLET PO SCH (17:00)
[2023-08-03] MEDS: ONDANSETRON HCL 4MG/2ML INJ IV PRN (18:16)
[2023-08-03] MEDS: ATORVASTATIN CALCIUM 40MG TABLET PO SCH (21:58)
[2023-08-03] MEDS: SEVELAMER CARBONATE 800 MG TABLET PO SCH (21:58)
[2023-08-04] VITALS (7 sets, daily range): BP systolic 90–106; BP diastolic 30–39; PULSE 67–73; RESP 17–19; TEMP 97.4–98.5
[2023-08-04] MEDS: BLOOD SUGAR DIAGNOSTIC STRIP TEST SCH ×4 (06:33→20:17)
[2023-08-04] MEDS: ONDANSETRON HCL 4MG/2ML INJ IV PRN (08:01)
[2023-08-04] MEDS ORDERED: SODIUM BICARBONATE 4% (2.4MEQ) 5ML VIAL IV ONE (08:09)
[2023-08-04] MEDS ORDERED: LIDOCAINE HCL 1% 10 MG/ML 10ML VIAL ONE (08:10)
[2023-08-04] MEDS: ASPIRIN 81MG EC TABLET PO SCH (09:00)
[2023-08-04] MEDS: CARVEDILOL 3.125 MG TABLET PO SCH ×2 (09:00→16:27)
[2023-08-04] MEDS: SEVELAMER CARBONATE 800 MG TABLET PO SCH ×3 (09:00→17:12)
[2023-08-04] MEDS: AMLODIPINE 10MG TABLET PO SCH (09:00)
[2023-08-04] MEDS: CLOPIDOGREL 75MG TABLET PO SCH (09:00)
[2023-08-04] MEDS ORDERED: FAMOTIDINE 20MG TABLET PO SCH (09:00)
[2023-08-04] MEDS: ENOXAPARIN 30MG/0.3ML SYR SUBCUT SCH (10:16)
[2023-08-04 11:10] LABS: BASOPHILS % 1.1 % (0.0-2.0); EOSINOPHILS % 5.6 % (0.0-5.0); HEMATOCRIT. 36.3 % (42.0-52.0); HEMOGLOBIN. 11.7 g/dL (14.0-18.0); LYMPHOCYTES % 22.8 % (20.0-50.0); MEAN CORPUSCULAR HEMOGLOBIN 28.4 pg (28.0-32.0); MEAN CORPUSCULAR HGB CONC 32.1 g/dL (31.0-37.0); MEAN CORPUSCULAR VOLUME 88.4 fL (80.0-94.0); MEAN PLATELET VOLUME 7.7 fl (7.4-10.4); MONOCYTES % 8.8 % (2.0-8.0); NEUTROPHILS % 61.7 % (40.0-76.0); PLATELET 131 x1000/uL (130-400); RED BLOOD CELL COUNT 4.11 mill/uL (4.7-6.1); WHITE BLOOD COUNT 5.7 x1000/uL (4.5-11.0)
[2023-08-04 11:50] LABS: ALANINE AMINOTRANSFERASE < 7 IU/L (10-49); ALBUMIN 3.2 g/dL (3.2-4.8); ASPARTATE AMINOTRANSFERASE 16 IU/L (<34); BILIRUBIN DIRECT 0.2 mg/dL (<=3.0); BILIRUBIN TOTAL 0.6 mg/dL (0.1-1.0); CALCIUM 8.7 mg/dL (8.7-10.4); CARBON DIOXIDE 26 mEq/L (21-32); CHLORIDE 101 mEq/L (98-107); CHOLESTEROL 90 mg/dL (<200); GLUCOSE 124 mg/dL (70-105); HDL CHOLESTEROL 30 mg/dL (>55); LDL CHOLESTEROL 53 mg/dL (5-100); PHOSPHORUS 7.1 mg/dL (2.5-4.9); POTASSIUM 5.3 mEq/L (3.5-5.1); PROTEIN TOTAL 6.5 g/dL (6.0-8.3); SODIUM 139 mEq/L (136-145); T4 FREE 0.88 ng/dL (0.89-1.76); THYROID STIMULATING HORMONE 3.66 uIU/mL (0.55-4.78); TRIGLYCERIDE 118 mg/dL (0-150); UREA NITROGEN BLOOD 34 mg/dL (9-23)
[2023-08-04] MEDS: FAMOTIDINE 20MG/2ML VIAL IV SCH (12:32)
[2023-08-04 12:56] LABS: CREATININE 7.6 mg/dL (0.6-1.3); TROPONIN I HIGH SENSITIVITY 143 ng/L (3.0-53)
[2023-08-04] MEDS: ATORVASTATIN CALCIUM 40MG TABLET PO SCH (20:17)
[2023-08-05] VITALS (15 sets, daily range): BP systolic 102–132; BP diastolic 34–64; PULSE 63–70; RESP 16–18; TEMP 97.1–98.4
[2023-08-05] MEDS: BLOOD SUGAR DIAGNOSTIC STRIP TEST SCH ×4 (07:00→20:33)
[2023-08-05 07:02] LABS: BASOPHILS % 1.3 % (0.0-2.0); EOSINOPHILS % 7.2 % (0.0-5.0); HEMATOCRIT. 35.7 % (42.0-52.0); HEMOGLOBIN. 11.7 g/dL (14.0-18.0); LYMPHOCYTES % 21.5 % (20.0-50.0); MEAN CORPUSCULAR HEMOGLOBIN 28.7 pg (28.0-32.0); MEAN CORPUSCULAR HGB CONC 32.8 g/dL (31.0-37.0); MEAN CORPUSCULAR VOLUME 87.3 fL (80.0-94.0); MEAN PLATELET VOLUME 7.7 fl (7.4-10.4); MONOCYTES % 8.3 % (2.0-8.0); NEUTROPHILS % 61.7 % (40.0-76.0); PLATELET 124 x1000/uL (130-400); RED BLOOD CELL COUNT 4.09 mill/uL (4.7-6.1); RED CELL DISTRIBUTION WIDTH 14.8 % (11.6-14.6); WHITE BLOOD COUNT 5.3 x1000/uL (4.5-11.0)
[2023-08-05 07:30] LABS: CALCIUM 8.2 mg/dL (8.7-10.4); CARBON DIOXIDE 28 mEq/L (21-32); CHLORIDE 101 mEq/L (98-107); CHOLESTEROL 84 mg/dL (<200); GLUCOSE 134 mg/dL (70-105); HDL CHOLESTEROL 24 mg/dL (>55); LDL CHOLESTEROL 44 mg/dL (5-100); POTASSIUM 5.6 mEq/L (3.5-5.1); SODIUM 140 mEq/L (136-145); TRIGLYCERIDE 98 mg/dL (0-150); UREA NITROGEN BLOOD 48 mg/dL (9-23)
[2023-08-05 08:13] LABS: TROPONIN I HIGH SENSITIVITY 137 ng/L (3.0-53)
[2023-08-05] MEDS: ENOXAPARIN 30MG/0.3ML SYR SUBCUT SCH (09:00)
[2023-08-05] MEDS: AMLODIPINE 10MG TABLET PO SCH (09:00)
[2023-08-05] MEDS: CARVEDILOL 3.125 MG TABLET PO SCH ×2 (09:00→17:11)
[2023-08-05] MEDS: ASPIRIN 81MG EC TABLET PO SCH (09:01)
[2023-08-05] MEDS: SEVELAMER CARBONATE 800 MG TABLET PO SCH ×3 (09:01→17:11)
[2023-08-05] MEDS: CLOPIDOGREL 75MG TABLET PO SCH (09:01)
[2023-08-05] MEDS: ATORVASTATIN CALCIUM 40MG TABLET PO SCH (20:34)
[2023-08-06] VITALS: BP 103/49; PULSE 67; RESP 19; TEMP 98.2
[2023-08-06 04:00] VITALS: BP 111/49; PULSE 71; RESP 19; TEMP 98.2
[2023-08-06] MEDS: BLOOD SUGAR DIAGNOSTIC STRIP TEST SCH ×2 (06:17→12:22)
[2023-08-06 08:00] VITALS: BP 110/48; PULSE 65; RESP 18; TEMP 98.2
[2023-08-06 08:03] LABS: HEMATOCRIT 34.7 % (42.0-52.0); HEMOGLOBIN 11.3 g/dL (14.0-18.0); MEAN CORPUSCULAR HEMOGLOBIN 28.4 pg (28.0-32.0); MEAN CORPUSCULAR HGB CONC 32.5 g/dL (31.0-37.0); MEAN CORPUSCULAR VOLUME 87.6 fL (80.0-94.0); PLATELET 125 x1000/uL (130-400); RED BLOOD CELL COUNT 3.97 mill/uL (4.7-6.1); RED CELL DISTRIBUTION WIDTH 14.6 % (11.6-14.6); WHITE BLOOD COUNT 5.3 x1000/uL (4.5-11.0)
[2023-08-06 08:21] LABS: ALANINE AMINOTRANSFERASE < 7 IU/L (10-49); ALBUMIN 2.7 g/dL (3.2-4.8); ASPARTATE AMINOTRANSFERASE 12 IU/L (<34); BILIRUBIN TOTAL 0.6 mg/dL (0.1-1.0); CALCIUM 8.3 mg/dL (8.7-10.4); CARBON DIOXIDE 31 mEq/L (21-32); CHLORIDE 100 mEq/L (98-107); GLUCOSE 129 mg/dL (70-105); POTASSIUM 4.5 mEq/L (3.5-5.1); PROTEIN TOTAL 5.4 g/dL (6.0-8.3); SODIUM 141 mEq/L (136-145); UREA NITROGEN BLOOD 30 mg/dL (9-23)
[2023-08-06] MEDS: CARVEDILOL 3.125 MG TABLET PO SCH (08:42)
[2023-08-06] MEDS: ASPIRIN 81MG EC TABLET PO SCH (08:43)
[2023-08-06] MEDS: AMLODIPINE 10MG TABLET PO SCH (08:43)
[2023-08-06] MEDS: SEVELAMER CARBONATE 800 MG TABLET PO SCH ×2 (08:43→12:28)
[2023-08-06] MEDS: CLOPIDOGREL 75MG TABLET PO SCH (08:43)
[2023-08-06] MEDS: ENOXAPARIN 30MG/0.3ML SYR SUBCUT SCH (08:44)
[2023-08-06 10:44] VITALS: BP 110/38; PULSE 65; RESP 18; TEMP 98.2
[2023-08-06 12:00] VITALS: BP 121/39; PULSE 61; RESP 18; TEMP 98.2
[2023-08-06] MEDS: FAMOTIDINE 20MG/2ML VIAL IV SCH (12:28)
[2023-08-06 14:39] VITALS: BP 121/39; PULSE 61; TEMP 98.2; O2SAT 97
[2023-08-06] MEDS ORDERED: AMLODIPINE 2.5MG TABLET PO SCH (17:00)
== END 2023-08-06 15:15 | disposition home health service (06) | DRG 432 ==
LOC: ER 10:03 → MICUSO 12:43 → EDBEDREQ 12:46 → EDBEDREQTM 12:46 → 5WST 08-03 09:03
PROVIDERS: ADMIT Family Medicine Adult Medicine; ATTEND Family Medicine Adult Medicine
PROC: 5A1D70Z Performance of Urinary Filtration, Intermittent, Less than 6 Hours Per Day (ICD-10-PCS; 2023-08-02)
PROC: 5A1D70Z Performance of Urinary Filtration, Intermittent, Less than 6 Hours Per Day (ICD-10-PCS; 2023-08-03)
PROC: 0W9G3ZZ Drainage of Peritoneal Cavity, Percutaneous Approach (ICD-10-PCS; principal; 2023-08-04)
PROC: 5A1D70Z Performance of Urinary Filtration, Intermittent, Less than 6 Hours Per Day (ICD-10-PCS; 2023-08-05)
DX: K74.60 Unspecified cirrhosis of liver (principal); N18.6 End stage renal disease; I13.2 Hypertensive heart and chronic kidney disease with heart failure and with stage 5 chronic kidney disease, or end stage renal disease; R18.8 Other ascites; I50.32 Chronic diastolic (congestive) heart failure; E87.70 Fluid overload, unspecified; D64.9 Anemia, unspecified; E11.22 Type 2 diabetes mellitus with diabetic chronic kidney disease; E11.65 Type 2 diabetes mellitus with hyperglycemia; E78.00 Pure hypercholesterolemia, unspecified; E87.5 Hyperkalemia; I25.10 Atherosclerotic heart disease of native coronary artery without angina pectoris; I48.0 Paroxysmal atrial fibrillation; J44.9 Chronic obstructive pulmonary disease, unspecified; I44.7 Left bundle-branch block, unspecified; I27.20 Pulmonary hypertension, unspecified; Z95.1 Presence of aortocoronary bypass graft; Z79.84 Long term (current) use of oral hypoglycemic drugs; Z87.891 Personal history of nicotine dependence; Z95.5 Presence of coronary angioplasty implant and graft; Z99.2 Dependence on renal dialysis
CPT/HCPCS: 36415; 49083; 71045; 76705; 80048; 80053; 80061; 80076; 82962; 83036; 83735; 83880; 84100; 84439; 84443; 84484; 85025; 85027; 86705; 86709; 87340; 90935; 93005; 93306; 93970; 94644; 99291; J1650; J1815; J2405; J3490